=== PATIENT | female | born 1930 | race Caucasian/White ===

== ENCOUNTER 2017-08-05 18:23 | Inpatient (IN) | payer MEDICARE, OTHER ==
--- NOTE | 2017-08-05 19:27 | EDM.PDOC ---
ED HPI GENERAL MEDICAL PROBLEM - General Chief Complaint: Gastrointestinal Problem Stated Complaint: BLEEDING FROM RECTUM Time Seen by Provider: 08/05/17 19:05 Source of Information: Reports: Patient History Limitations: Reports: No Limitations - History of Present Illness INITIAL COMMENTS - FREE TEXT/NARRATIVE: 87-year-old female presents to the ED with reported rectal bleeding 3 since 7: 00 last night. There was some stool mixed with blood but it is bright red with a few clots. It was over hand for one halfthis p.m. She did attend the clinic in [facility] and hemoglobin was low at 7.8. She has seen multiple specialists in the past and getting different opinions about how high her hemoglobin should be kept at. Her fleet administrator is apparently adopted a hemoglobin of around 8-8.5. This seems relatively low as normally patients with coronary artery disease should be 10-11. Patient has both aortic insufficiency and mitral stenosis murmurs. I think there is some concern about easily volume overloading her. She has no dull cramping pain no nausea or vomiting. Appetite has been good. Last EGD and colonoscopy was in March last year in [place]. She had 1 polyp resected from the colon and apparently found diverticula off of her duodenum and some superficial ulcers. Of note the patient is on Coumadin long- term because of her valvular heart disease. Last PT/INR was done on Saturday last week and reported to be INR of 1.5. Dr. Hobson has instructed her she would see her in the clinic tomorrow. She also told her to hold her Coumadin today. Onset: Sudden Onset Date: 08/04/17 (First major bleeding per rectum was identified about some o'clock last night. There is some suggestion she did note some blood in her stool on Saturday, August 03 in the a.m.) Duration: Hour(s): Location: Reports: Other (Bleeding per rectum) Severity: Moderate Improves with: Reports: None Worsens with: Reports: None Context: Reports: Other (Spontaneous bleeding per rectum.). Denies: Activity, Exercise, Lifting, Sick Contact, Trauma Associated Symptoms: Reports: Malaise (Dyspnea on minimal exertion.), Other Treatments KENNEL KEEPER: Reports: Other (see below) (None.) - Related Data Allergies Allergy/AdvReac Type Severity Reaction Status Date / Time prochlorperazine AdvReac Nausea and Verified 08/05/17 18:42 Vomiting tramadol AdvReac Nausea and Verified 08/05/17 18:42 Vomiting Home Meds: Home Meds Atenolol 50 mg PO BEDTIME 07/20/16 [History] Calcium Carbonate [Calcium] 600 mg PO DAILY 07/20/16 [History] Cyanocobalamin (Vitamin B12) [Vitamin B12] 1,000 mcg PO DAILY 07/20/16 [History] Digoxin 0.125 mg PO ASDIRECTED 07/20/16 [History] Sertraline [Zoloft] 75 mg PO BEDTIME 07/20/16 [History] Spironolactone [Aldactone] 50 mg PO BID 07/20/16 [History] Warfarin [Coumadin] 5 mg PO ASDIRECTED 07/20/16 [History] Bumetanide [Bumex] 2 mg PO BID 08/05/17 [History] Cyproheptadine HCl 4 mg PO Q4H PRN 08/05/17 [History] Darbepoetin Jayce in Polysorbat [Aranesp] 40 mcg IJ ASDIRECTED 08/05/17 [History] Denosumab [Prolia] 60 mg SQ ASDIRECTED 08/05/17 [History] Metolazone [Zaroxolyn] 2.5 mg PO MOWEFR 08/05/17 [History] Omeprazole Magnesium [Prilosec Otc] 40 mg PO DAILY 08/05/17 [History] Potassium Chloride 20 meq PO BID 08/05/17 [History] Past Medical History HEENT History: Reports: Cataract Cardiovascular History: Reports: Afib, Cardiomyopathy, Heart Murmur, High Cholesterol, Hypertension, Other (See Below) Other Cardiovascular History: Aortic stenosis, Mitral regurgitation, tricuspid regurgitation, valvular cardiomyopathy Respiratory History: Reports: Other (See Below) Other Respiratory History: Pulmonary HTN Gastrointestinal History: Reports: None Genitourinary History: Reports: None 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: Musculoskeletal History: Reports: Arthritis Neurological History: Reports: None Psychiatric History: Reports: Anxiety Endocrine/Metabolic History: Reports: Osteopenia Hematologic History: Reports: None Immunologic History: Reports: None Oncologic (Cancer) History: Reports: None Dermatologic History: Reports: None - Infectious Disease History Infectious Disease History: Reports: None - Past Surgical History HEENT Surgical History: Reports: Cataract Surgery GI Surgical History: Reports: None Female Surgical History: Reports: Hysterectomy Endocrine Surgical History: Reports: None Neurological Surgical History: Reports: None Musculoskeletal Surgical History: Reports: None Oncologic Surgical History: Reports: None Dermatological Surgical History: Reports: None Social & Family History - Tobacco Use Smoking Status *Q: Never Smoker Used Tobacco, but Quit: Yes Month Tobacco Last Used: 02/10/67 - Caffeine Use Caffeine Use: Reports: Coffee - Recreational Drug Use Recreational Drug Use: No Drug Use in Last 12 Months: No - Living Situation & Occupation Living situation: Reports: Occupation: Retired ED ROS GENERAL - Review of Systems Review Of Systems: See Below Constitutional: Reports: Malaise, Weakness, Fatigue. Denies: Fever, Chills, Decreased Appetite HEENT: Reports: Glasses Respiratory: Reports: Shortness of Breath. Denies: Wheezing, Pleuritic Chest Pain (Chronically), Cough, Sputum, Hemoptysis, Other Cardiovascular: Reports: Blood Pressure Problem, Dyspnea on Exertion. Denies: Claudication, Edema, Lightheadedness, Orthopnea (Mild hypertension), Palpitations, Syncope, Other Endocrine: Reports: Fatigue GI/Abdominal: Reports: Melena. Denies: Abdominal Pain, Anorexia, Black Stool : Reports: Frequency, Incontinence Musculoskeletal: Reports: Neck Pain, Shoulder Pain, Back Pain (Urgent stress components), Joint Pain (At times easily upset time) Skin: Reports: Pallor, Pruritis ( severe generalized pruritus.), Other (Has been tanning in an effort to relieve her) Neurological: Reports: Confusion (Short-term memory loss is evident. Mild confusion at times for dates and times) Psychiatric: Reports: No Symptoms Hematologic/Lymphatic: Reports: No Symptoms Immunologic: Reports: No Symptoms ED EXAM, GI/ABD - Physical Exam Exam: See Below Exam Limited By: No Limitations General Appearance: Alert, WD/WN, No Apparent Distress, Other (She often looks to her family members to answer questions that she's forgetful.) Eyes: Bilateral: Pale Conjunctiva (Moderate) Nose: Normal Inspection, Normal Mucosa, No Blood Throat/Mouth: Normal Inspection, Normal Lips, Normal Oropharynx Head: Atraumatic, Normocephalic Neck: Limited Range of Motion, Tender Lateral (Crepitus on rotation. Tenderness bilaterally). No: Supple, Lymphadenopathy (L), Lymphadenopathy (R) Respiratory/Chest: Chest Non-Tender, Decreased Breath Sounds (Breath sounds diminished in the lower 25% of lung velasquez bilaterally), Rales (Few rales left base.) Cardiovascular: No Edema, No Gallop, No Rub, JVD, Systolic Murmur (Grade 3/6 pansystolic ejection murmur at the left lower sternal border rating up to the right carotid artery compatible with aortic stenosis. Also murmur radiating to the left axilla suggesting mitral insufficiency.) GI/Abdominal Exam: Normal Bowel Sounds, Soft, Non-Tender, No Organomegaly Rectal (Female) Exam: Bloody Stool Back Exam: Other Extremities: Normal Inspection (Mild kyphosis thoracic spine), Normal Range of Motion, Other (Evidence of osteophytic changes knees hips.) Neurological: Alert, Oriented, CN II-XII Intact, Normal Cognition, Memory Loss Recent Events Psychiatric: Normal Affect, Normal Mood Skin Exam: Warm, Dry, Intact, Normal Color, No Rash ED ABDOMINAL/GI PROCEDURES - Additional/Other Procedure(s) Procedure(s) (Free Text): Rigid sigmoidoscopy done with the aid of topical lidocaine gel to the anus. Patient tolerated the procedure well. Rigid sigmoidoscopy done up to 18 cm but encountered only melena stool. In fact the scope progress stool and it was I am unable to visualize much of the colonic wall on the way out of the rectal vault. The veras of the colon appeared be plastered with melena stool. Therefore it appears that the bleeding is coming from up higher in the GI tract. Course - Vital Signs Last Recorded V/S: Last Vital Signs Temp 36.4 C 08/06/17 02:33 Pulse 52 L 08/06/17 02:33 Resp 20 08/06/17 05:00 BP 92/58 L 08/06/17 05:00 Pulse Ox 98 08/06/17 05:00 - Orders/Labs/Meds Orders: Active Orders 24 hr Category Date Time Status Admission Status [Patient Status] [ADT] Routine ADT 08/05/17 21:21 Active Peripheral IV Care [RC] Q2HR Care 08/05/17 20:21 Active Clear Liquid Diet [DIET] Diet 08/06/17 Breakfast Active Nothing per Oral After Midnight Diet [DIET] Diet 08/06/17 Breakfast Active Guaiac [OCCULT BLOOD DIAGNOSTIC] [OP] Stat Lab 08/05/17 20:31 Ordered PACKED CELLS [RED BLOOD CELLS LP] [BBK] Stat Lab 08/05/17 19:40 Results TYPE AND SCREEN [BBK] Stat Lab 08/05/17 19:40 Results Acetaminophen [Tylenol] Med 08/05/17 21:58 Active 650 mg PO Q6H PRN Sodium Chloride 0.9% [Normal Saline] 100 ml Med 08/05/17 21:30 Active IV ASDIRECTED Sodium Chloride 0.9% [Saline Flush] Med 08/05/17 20:20 Active 10 ml FLUSH ASDIRECTED PRN hydrOXYzine HCl [Atarax] Med 08/05/17 21:57 Active 10 mg PO Q6H PRN Peripheral IV Insertion Adult [OM.PC] Stat Oth 08/05/17 20:21 Ordered Medication Orders Acetaminophen (Tylenol) 650 mg PO Q6H PRN PRN Reason: Pain/Fever Atenolol (Tenormin) 50 mg PO BEDTIME [facility] Last Admin: 08/05/17 22:42 Dose: 50 mg Cyproheptadine HCl (Cyproheptadine) 4 mg PO Q4H PRN PRN Reason: Itching Last Admin: 08/05/17 22:28 Dose: 4 mg Digoxin (Lanoxin) 125 mcg PO DAILY@1200 [facility] Enoxaparin Sodium (Lovenox) 30 mg SUBCUT DAILY [facility] Hydroxyzine HCl (Atarax) 10 mg PO Q6H PRN PRN Reason: itching Sodium Chloride (Normal Saline) 100 mls @ 25 mls/hr IV ASDIRECTED [facility]TER Last Admin: 08/05/17 21:35 Dose: 25 mls/hr Lorazepam (Ativan) 0.5 mg IVPUSH Q8H PRN PRN Reason: Anxiety Pantoprazole Sodium (Protonix) 40 mg PO DAILY [facility] Sertraline HCl (Zoloft) 75 mg PO BEDTIME [facility] Last Admin: 08/05/17 22:43 Dose: 75 mg Sodium Chloride (Saline Flush) 10 ml FLUSH ASDIRECTED PRN PRN Reason: Keep Vein Open Last Admin: 08/05/17 20:54 Dose: 10 ml Temazepam (Restoril) 7.5 mg PO BEDTIME PRN PRN Reason: Sleep Labs: Laboratory Tests 08/05/17 08/05/17 08/05/17 Range/Units 19:40 19:40 19:40 WBC 3.14 L (3.98-10.04) K/mm3 RBC 2.83 L (3.98-5.22) M/mm3 Hgb 7.0 L* (11.2-15.7) gm/L Hct 23.1 L (34.1-44.9) % MCV 81.6 (79.4-94.8) fl MCH 24.7 L (25.6-32.2) pg MCHC 30.3 L (32.2-35.5) g/dl RDW Std Deviation 58.6 H (36.4-46.3) fL Plt Count 119 L (182-369) K/mm3 MPV 10.5 (9.4-12.3) fl Neutrophils % (Manual) 76 H (40-60) % Band Neutrophils % 0 (0-10) % Lymphocytes % (Manual) 9 L (20-40) % Atypical Lymphs % 0 % Monocytes % (Manual) 10 (2-10) % Eosinophils % (Manual) 1 (0.7-5.8) % Basophils % (Manual) 1 (0.1-1.2) Metamyelocytes % 3 Platelet Estimate Decreased Plt Morphology Comment See note Hypochromasia 1+ slight Poikilocytosis 1+ slight Anisocytosis 2+ moderate Microcytosis 1+ slight Ovalocytes Few Acanthocytes (Spur) Few Rouleaux 1+ slight Schistocytes Few RBC Morph Comment Not Reportable PT 16.1 H (8.0-13.0) SECONDS INR 1.44 Sodium 140 (136-145) mEq/L Potassium 3.5 (3.5-5.1) mEq/L Chloride 101 (98-107) mEq/L Carbon Dioxide 28 (21-32) mEq/L Anion Gap 14.5 (5-15) BUN 59 H (7-18) mg/dL Creatinine 1.4 H (0.55-1.02) mg/dL Est Cr Clr Drug Dosing 21.10 mL/min Estimated GFR (MDRD) 36 (>60) mL/min BUN/Creatinine Ratio 42.1 H (14-18) Glucose 116 H (83-115) mg/dL Calcium 8.2 L (8.5-10.1) mg/dL Magnesium 1.9 (1.8-2.4) mg/dl Iron (50-170) ug/dL TIBC (100-400) ug/dL % Saturation (20-55) % Transferrin (202-364) mg/dL Total Bilirubin 0.5 (0.2-1.0) mg/dL AST 20 (15-37) U/L ALT 15 (14-59) U/L Alkaline Phosphatase 84 (46-116) U/L C-Reactive Protein 0.6 (<1.0) mg/dL NT-Pro-B Natriuret Pep (0-450) pg/mL Total Protein 6.8 (6.4-8.2) g/dl Albumin 3.2 L (3.4-5.0) g/dl Globulin 3.6 gm/dL Albumin/Globulin Ratio 0.9 L (1-2) Digoxin (0.9-2.0) ng/mL Blood Type Gel Antibody Screen Crossmatch 08/05/17 08/05/17 08/05/17 Range/Units 19:40 19:40 19:40 WBC (3.98-10.04) K/mm3 RBC (3.98-5.22) M/mm3 Hgb (11.2-15.7) gm/L Hct (34.1-44.9) % MCV (79.4-94.8) fl MCH (25.6-32.2) pg MCHC (32.2-35.5) g/dl RDW Std Deviation (36.4-46.3) fL Plt Count (182-369) K/mm3 MPV (9.4-12.3) fl Neutrophils % (Manual) (40-60) % Band Neutrophils % (0-10) % Lymphocytes % (Manual) (20-40) % Atypical Lymphs % % Monocytes % (Manual) (2-10) % Eosinophils % (Manual) (0.7-5.8) % Basophils % (Manual) (0.1-1.2) Metamyelocytes % Platelet Estimate Plt Morphology Comment Hypochromasia Poikilocytosis Anisocytosis Microcytosis Ovalocytes Acanthocytes (Spur) Rouleaux Schistocytes RBC Morph Comment PT (8.0-13.0) SECONDS INR Sodium (136-145) mEq/L Potassium (3.5-5.1) mEq/L Chloride (98-107) mEq/L Carbon Dioxide (21-32) mEq/L Anion Gap (5-15) BUN (7-18) mg/dL Creatinine (0.55-1.02) mg/dL Est Cr Clr Drug Dosing mL/min Estimated GFR (MDRD) (>60) mL/min BUN/Creatinine Ratio (14-18) Glucose (83-115) mg/dL Calcium (8.5-10.1) mg/dL Magnesium (1.8-2.4) mg/dl Iron 25 L (50-170) ug/dL TIBC 420 H (100-400) ug/dL % Saturation 6 L (20-55) % Transferrin 336 (202-364) mg/dL Total Bilirubin (0.2-1.0) mg/dL AST (15-37) U/L ALT (14-59) U/L Alkaline Phosphatase (46-116) U/L C-Reactive Protein (<1.0) mg/dL NT-Pro-B Natriuret Pep 3094 H (0-450) pg/mL Total Protein (6.4-8.2) g/dl Albumin (3.4-5.0) g/dl Globulin gm/dL Albumin/Globulin Ratio (1-2) Digoxin (0.9-2.0) ng/mL Blood Type O POSITIVE Gel Antibody Screen Negative Crossmatch See Detail 08/05/17 Range/Units 19:40 WBC (3.98-10.04) K/mm3 RBC (3.98-5.22) M/mm3 Hgb (11.2-15.7) gm/L Hct (34.1-44.9) % MCV (79.4-94.8) fl MCH (25.6-32.2) pg MCHC (32.2-35.5) g/dl RDW Std Deviation (36.4-46.3) fL Plt Count (182-369) K/mm3 MPV (9.4-12.3) fl Neutrophils % (Manual) (40-60) % Band Neutrophils % (0-10) % Lymphocytes % (Manual) (20-40) % Atypical Lymphs % % Monocytes % (Manual) (2-10) % Eosinophils % (Manual) (0.7-5.8) % Basophils % (Manual) (0.1-1.2) Metamyelocytes % Platelet Estimate Plt Morphology Comment Hypochromasia Poikilocytosis Anisocytosis Microcytosis Ovalocytes Acanthocytes (Spur) Rouleaux Schistocytes RBC Morph Comment PT (8.0-13.0) SECONDS INR Sodium (136-145) mEq/L Potassium (3.5-5.1) mEq/L Chloride (98-107) mEq/L Carbon Dioxide (21-32) mEq/L Anion Gap (5-15) BUN (7-18) mg/dL Creatinine (0.55-1.02) mg/dL Est Cr Clr Drug Dosing mL/min Estimated GFR (MDRD) (>60) mL/min BUN/Creatinine Ratio (14-18) Glucose (83-115) mg/dL Calcium (8.5-10.1) mg/dL Magnesium (1.8-2.4) mg/dl Iron (50-170) ug/dL TIBC (100-400) ug/dL % Saturation (20-55) % Transferrin (202-364) mg/dL Total Bilirubin (0.2-1.0) mg/dL AST (15-37) U/L ALT (14-59) U/L Alkaline Phosphatase (46-116) U/L C-Reactive Protein (<1.0) mg/dL NT-Pro-B Natriuret Pep (0-450) pg/mL Total Protein (6.4-8.2) g/dl Albumin (3.4-5.0) g/dl Globulin gm/dL Albumin/Globulin Ratio (1-2) Digoxin 0.4 L (0.9-2.0) ng/mL Blood Type Gel Antibody Screen Crossmatch Meds: Medications Generic Name Dose Route Start Last Admin Trade Name Freq PRN Reason Stop Dose Admin Acetaminophen 650 mg 08/05/17 21:58 Tylenol PO Q6H PRN Pain/Fever Atenolol 50 mg 08/05/17 22:45 08/05/17 22:42 Tenormin PO 50 mg BEDTIME [facility] Administration Cyproheptadine HCl 4 mg 08/05/17 22:18 08/05/17 22:28 Cyproheptadine PO 4 mg Q4H PRN Administration Itching Digoxin 125 mcg 08/06/17 12:00 Lanoxin PO DAILY@1200 [facility] Enoxaparin Sodium 30 mg 08/06/17 09:00 Lovenox SUBCUT DAILY [facility] Hydroxyzine HCl 10 mg 08/05/17 21:57 Atarax PO Q6H PRN itching Sodium Chloride 100 mls @ 25 mls/hr 08/05/17 21:30 08/05/17 21:35 Normal Saline IV 25 mls/hr ASDIRECTED [facility] Administration Lorazepam 0.5 mg 08/05/17 21:59 Ativan IVPUSH Q8H PRN Anxiety Pantoprazole Sodium 40 mg 08/06/17 09:00 Protonix PO DAILY [facility] Sertraline HCl 75 mg 08/05/17 22:45 08/05/17 22:43 Zoloft PO 75 mg BEDTIME [facility] Administration Sodium Chloride 10 ml 08/05/17 20:20 08/05/17 20:54 Saline Flush FLUSH 10 ml ASDIRECTED PRN Administration Keep Vein Open Temazepam 7.5 mg 08/05/17 22:01 Restoril PO BEDTIME PRN Sleep Discontinued Medications Generic Name Dose Route Start Last Admin Trade Name Freq PRN Reason Stop Dose Admin Atenolol 50 mg 08/06/17 21:00 Tenormin PO BEDTIME [facility] Cyproheptadine HCl 4 mg 08/05/17 22:22 Cyproheptadine PO Q4H PRN Itching Digoxin 125 mcg 08/06/17 09:00 Lanoxin PO DAILY [facility] Digoxin 125 mcg 08/05/17 22:30 Lanoxin PO ASDIRECTED [facility] Furosemide 40 mg 08/05/17 22:00 08/06/17 00:19 Lasix IVPUSH 08/05/17 22:01 40 mg ONETIME ONE Administration Furosemide Confirm 08/06/17 01:13 08/06/17 01:22 Lasix Administered 08/06/17 01:14 Not Given Dose 40 mg .ROUTE .STK-MED ONE Lidocaine HCl 10 ml 08/05/17 19:36 08/05/17 19:56 Xylocaine 2% Jelly MUCMEM 08/05/17 19:37 10 ml ONETIME ONE Administration Sertraline HCl 75 mg 08/06/17 21:00 Zoloft PO BEDTIME [facility] - Radiology Interpretation Free Text/Narrative:: 87-year-old female from [place]. She presents with bright red bleeding per rectum 3 occasions in the last 24 hours. Note she is on Coumadin chronically due to valvular heart disease. She has no pain or cramps. This suggests a low lying lesion in the rectum to be causing such blood loss. Last passage of blood was a handful and a half with some stool. Last hemoglobin checked at the clinic today was 7.8. 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 Dr. Hobson advise her to put her Coumadin on hold today. Plan I will have a quick look in the rectum with the sigmoidoscope see if we can identify source of bleeding. Routine lab work ordered with type and screen. - Re-Assessments/Exams Free Text/Narrative Re-Assessment/Exam: 08/05/17 20:20 a rigid sigmoidoscopy done up to 20 cm. Encountered nothing but melena stool. Stool plug the end of my scope and I could not visualize much of the colon on the way out. On the way and it was blighted stool against the colonic wall throughout. No obvious internal hemorrhoids were appreciated. 08/05/17 20:28 Labs are completed. White count is 3.14 with 76% neutrophils no bands. Hemoglobin is 7.0 at this time with hematocrit of 23.1. Platelet count is 119,000. PT is 16.1 with an INR 1.44. Sodium is 140 with potassium low- normal at 3.5. Chloride 11 bicarbonate 28. And a gap is 14.5. BUN is 59 suggesting an upper GI bleed creatinine is 1.4. GFR is 36. Glucose is 116 calcium 8.2. Magnesium 1.9. Iron is 25 i.e. very low. Total iron binding capacity is 420. Percent saturation is very low at 6. Serum transferrin is 336. Liver function is normal. C-reactive protein is 0.6. BNP is elevated at 3094. 08/05/17 21:[address] Chávez low emission automobile designer hospitalist and she will see the patient in the ED with a view to admission to the hospital. Also spoke with Dr. Parra low emission automobile designer surgeon and he will see the patient in consultation tomorrow if she is stable we'll take her to the OR for upper GI endoscopy. Departure - Departure Time of Disposition: 21:50 Disposition: Admitted As Inpatient 68 Condition: Serious Clinical Impression: Valvular heart disease, Chronic renal insufficiency, stage III (moderate), Chronic atrial fibrillation, Anticoagulated on Coumadin Gastrointestinal hemorrhage Qualifiers: GI bleed type/associated pathology: melena Qualified Code(s): K92.1 - Melena Congestive heart failure Qualifiers: Heart failure type: diastolic Heart failure chronicity: acute on chronic Qualified Code(s): I50.33 - Acute on chronic diastolic (congestive) heart failure Anemia Qualifiers: Anemia type: iron deficiency Iron deficiency anemia type: chronic blood loss Qualified Code(s): D50.0 - Iron deficiency anemia secondary to blood loss ( chronic) - Discharge Information - My Orders Last 24 Hours: My Active Orders 08/05/17 19:40 PACKED CELLS [RED BLOOD CELLS LP] [BBK] Stat TYPE AND SCREEN [BBK] Stat 08/05/17 20:20 Sodium Chloride 0.9% [Saline Flush] 10 ml FLUSH ASDIRECTED PRN 08/05/17 20:21 Peripheral IV Care [RC] Q2HR Peripheral IV Insertion Adult [OM.PC] Stat 08/05/17 20:31 Guaiac [OCCULT BLOOD DIAGNOSTIC] [OP] Stat 08/05/17 21:21 Admission Status [Patient Status] [ADT] Routine 08/05/17 21:30 Sodium Chloride 0.9% [Normal Saline] 100 ml IV ASDIRECTED - Assessment/Plan Last 24 Hours: My Active Orders 08/05/17 19:40 PACKED CELLS [RED BLOOD CELLS LP] [BBK] Stat TYPE AND SCREEN [BBK] Stat 08/05/17 20:20 Sodium Chloride 0.9% [Saline Flush] 10 ml FLUSH ASDIRECTED PRN 08/05/17 20:21 Peripheral IV Care [RC] Q2HR Peripheral IV Insertion Adult [OM.PC] Stat 08/05/17 20:31 Guaiac [OCCULT BLOOD DIAGNOSTIC] [OP] Stat 08/05/17 21:21 Admission Status [Patient Status] [ADT] Routine 08/05/17 21:30 Sodium Chloride 0.9% [Normal Saline] 100 ml IV ASDIRECTED
[2017-08-05] MEDS ORDERED: Lidocaine 2% Jelly 10 ML Urojet MUCMEM ONE (19:36)
[2017-08-05] MEDS ORDERED: Sodium Chloride 0.9% 10 ML Syringe FLUSH PRN (20:20)
[2017-08-05] MEDS ORDERED: Sodium Chloride 0.9% 100 ML IV SCH (21:30)
[2017-08-05] MEDS ORDERED: Acetaminophen Soln 650 MG/20.3 ML UD Cup PO PRN (21:58)
[2017-08-05] MEDS ORDERED: LORazepam 2 MG/ML MDV IVPUSH PRN (21:59)
[2017-08-05] MEDS ORDERED: Furosemide 40 MG/4 ML VIAL IVPUSH ONE (22:00)
[2017-08-05] MEDS ORDERED: Cyproheptadine 4 MG Tab PO PRN (22:22)
[2017-08-05] MEDS: Cyproheptadine 4 MG Tab PO PRN (22:28)
[2017-08-05] MEDS ORDERED: Digoxin 125 MCG Tab PO SCH (22:30)
[2017-08-05] MEDS: Atenolol 50 MG Tab PO SCH (22:42)
[2017-08-05] MEDS: Sertraline 50 MG Tab PO SCH (22:43)
--- NOTE | 2017-08-06 00:25 | PCM.CONS ---
H&P History of Present Illness - General Date of Service: 08/06/17 Source of Information: Patient, Provider History Limitations: Reports: No Limitations - History of Present Illness Initial Comments - Free Text/Narative: 87-year-old elderly woman was in her usual state of health when on Saturday 2 days prior to admission she experienced tarry stools along with red bleeding. She had 3 episodes. She was asymptomatic with her specifically denying lightheadedness syncope palpitations chest pain shortness of breath dyspnea on exertion, abdominal pain, as well as, weakness and fatigue. She takes Coumadin for bivalvular heart disease. She underwent a panendoscopy in March of last year in [place] and she was found to have a colonic polyp which was removed. Her upper endoscopy was remarkable for peptic change of the stomach and she also had a duodenal diverticulum. She is on Coumadin and her INR is around 1.5. Her hemoglobin is 7 which is lower than the 8 recommendation by her corporate real estate specialist. She will receive 1 unit of red cells before the morning. I have been asked to see her in consultation for upper GI bleeding. - Related Data Allergies/Adverse Reactions: Allergies Allergy/AdvReac Type Severity Reaction Status Date / Time prochlorperazine AdvReac Nausea and Verified 08/05/17 18:42 Vomiting tramadol AdvReac Nausea and Verified 08/05/17 18:42 Vomiting Home Medications: Home Meds Atenolol 50 mg PO BEDTIME 07/20/16 [History] Calcium Carbonate [Calcium] 600 mg PO DAILY 07/20/16 [History] Cyanocobalamin (Vitamin B12) [Vitamin B12] 1,000 mcg PO DAILY 07/20/16 [History] Digoxin 0.125 mg PO ASDIRECTED 07/20/16 [History] Sertraline [Zoloft] 75 mg PO BEDTIME 07/20/16 [History] Spironolactone [Aldactone] 50 mg PO BID 07/20/16 [History] Warfarin [Coumadin] 5 mg PO ASDIRECTED 07/20/16 [History] Bumetanide [Bumex] 2 mg PO BID 08/05/17 [History] Cyproheptadine HCl 4 mg PO Q4H PRN 08/05/17 [History] Darbepoetin Jayce in Polysorbat [Aranesp] 40 mcg IJ ASDIRECTED 08/05/17 [History] Denosumab [Prolia] 60 mg SQ ASDIRECTED 08/05/17 [History] Metolazone [Zaroxolyn] 2.5 mg PO MOWEFR 08/05/17 [History] Omeprazole Magnesium [Prilosec Otc] 40 mg PO DAILY 08/05/17 [History] Potassium Chloride 20 meq PO BID 08/05/17 [History] Past Medical History HEENT History: Reports: Cataract Cardiovascular History: Reports: Afib, Cardiomyopathy, Heart Murmur, High Cholesterol, Hypertension, Other (See Below) Other Cardiovascular History: Aortic stenosis, Mitral regurgitation, tricuspid regurgitation, valvular cardiomyopathy Respiratory History: Reports: Other (See Below) Other Respiratory History: Pulmonary HTN Gastrointestinal History: Reports: None Genitourinary History: Reports: None ORTHOPEDICS 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 PHYSICIAN History: Reports: Musculoskeletal History: Reports: Arthritis Neurological History: Reports: None Psychiatric History: Reports: Anxiety Endocrine/Metabolic History: Reports: Osteopenia Hematologic History: Reports: None Immunologic History: Reports: None Oncologic (Cancer) History: Reports: None Dermatologic History: Reports: None - Infectious Disease History Infectious Disease History: Reports: None - Past Surgical History HEENT Surgical History: Reports: Cataract Surgery GI Surgical History: Reports: None Female Surgical History: Reports: Hysterectomy Endocrine Surgical History: Reports: None Neurological Surgical History: Reports: None Musculoskeletal Surgical History: Reports: None Oncologic Surgical History: Reports: None Dermatological Surgical History: Reports: None Social & Family History - Family History Family Medical History: Noncontributory - Tobacco Use Smoking Status *Q: Never Smoker Used Tobacco, but Quit: Yes Month Tobacco Last Used: 02/10/67 - Caffeine Use Caffeine Use: Reports: Coffee - Recreational Drug Use Recreational Drug Use: No Drug Use in Last 12 Months: No - Living Situation & Occupation Living situation: Reports: Occupation: Retired H&P Review of Systems - Review of Systems: Review Of Systems: ROS reveals no pertinent complaints other than HPI. Exam - Exam Exam: See Below - Vital Signs Vital Signs: Last Vital Signs Temp 36.4 C 08/05/17 21:45 Pulse 52 L 08/05/17 22:42 Resp 19 08/05/17 21:54 BP 108/59 L 08/05/17 22:42 Pulse Ox 100 08/05/17 18:42 Weight: 61.054 kg - Exam Quality Assessment: Supplemental Oxygen General: Alert, Oriented, Cooperative HEENT: EOMI, Other (Harder. Without her hearing aid) Neck: Supple, Trachea Midline Lungs: Clear to Auscultation, Normal Respiratory Effort Cardiovascular: Regular Rate, Regular Rhythm GI/Abdominal Exam: Soft, Non-Tender, No Distention, No Mass Rectal (Female) Exam: Deferred Extremities: Normal Inspection Skin: Warm, Dry, Intact Neuro Extensive - Mental Status: Alert, Oriented x3, Normal Mood/Affect Psychiatric: Alert, Normal Affect, Normal Mood - Patient Data Result Diagrams: 08/05/17 19:40 08/05/17 19:40 Consult PN Assessment/Plan Procedures: Procedures BLOOD TRANSFUSION SERVICE (05/11/17) BLOOD TYPING SEROLOGIC ABO (05/11/17) BLOOD TYPING SEROLOGIC RH(D) (05/11/17) BONE MARROW INTERPRETATION (07/23/16) COMPATIBILITY TEST ANTIGLOB (05/11/17) COMPLETE CBC W/AUTO DIFF WBC (05/14/17) DECALCIFY TISSUE (07/23/16) DX BONE MARROW BIOPSIES (07/23/16) DXA BONE DENSITY AXIAL (08/01/16) EXTREMITY STUDY (01/17/16) MEASURE BLOOD OXYGEN LEVEL (12/20/16) PROTHROMBIN TIME (07/05/17) RBC ANTIBODY SCREEN (05/11/17) ROUTINE VENIPUNCTURE (05/11/17) SPECIAL STAINS GROUP 2 (07/23/16) THER/PROPH/DIAG INJ IV PUSH (05/11/17) TISSUE EXAM BY PATHOLOGIST (07/23/16) X-RAY EXAM L-S SPINE 2/3 VWS (07/06/14) (1) Gastrointestinal hemorrhage SNOMED Code(s): 49888748 Code(s): K92.2 - GASTROINTESTINAL HEMORRHAGE, UNSPECIFIED Current Visit: Yes Qualifiers: GI bleed type/associated pathology: melena Qualified Code(s): K92.1 - Melena Assessment:: She has a known history of gastritis or gastric erosions. She's also on Coumadin. With her melena and BUN in the 50s this suggest an upper GI source. Her colonoscopy was remarkable for small diminutive polyp. I recommend an upper endoscopy. Problem List Initiated/Reviewed/Updated: Yes My Orders Last 24 Hours: My Active Orders 08/06/17 00:18 Verify Patient Consent Obtain [RC] ASDIRECTED Schedule Procedure [COMM] Routine 08/06/17 Breakfast Nothing per Oral Now Diet [DIET] Plan: Esophagogastroduodenoscopy in the morning. The patient was quite familiar with the procedure and was happy to hear that she would not need to have a bowel preparation. I answered all of her questions and she made it clear to me that she did not want general anesthesia. I informed her that the procedure could be done safely under conscious sedation.
[2017-08-06] MEDS ORDERED: Furosemide 40 MG/4 ML VIAL ONE (01:13)
--- NOTE | 2017-08-06 02:33 | PCM.PREANE ---
Preanesthetic Assessment - Anesthesia/Transfusion/Family Hx Anesthesia History: Prior Anesthesia Without Reaction Family History of Anesthesia Reaction: No Transfusion History: Prior Transfusion Without Reaction Type of Transfusion Reactions: Reports: Unknown Intubation History: Unknown - Review of Systems General: Weakness, Malaise Pulmonary: Shortness of Breath Cardiovascular: Dyspnea on Exertion Gastrointestinal: Abdominal Pain, Hematochezia Neurological: No Symptoms Other: Reports: Easy Bleeding - Physical Assessment NPO Status Date: 08/05/17 NPO Status Time: 00:00 Pulse: 52 O2 Sat by Pulse Oximetry: 100 Respiratory Rate: 19 Blood Pressure: 108/59 Temperature: 36.4 C Vital Signs: Last Vital Signs Temp 36.4 C 08/05/17 21:45 Pulse 52 L 08/05/17 22:42 Resp 19 08/05/17 21:54 BP 108/59 L 08/05/17 22:42 Pulse Ox 100 08/05/17 18:42 Height: 1.52 m Weight: 61.054 kg ASA Class: 3E Mental Status: Alert & Oriented x3 Airway Class: Mallampati = 1 Thyro-Mental Finger Breadths: 3 Mouth Opening Finger Breadths: 3 ROM/Head Extension: Limited/Partial Lungs: Decreased Breath Sounds Cardiovascular: Irregular Rhythm, Murmurs - Lab Values: Laboratory Last Values WBC 3.14 K/mm3 (3.98-10.04) L 08/05/17 19:40 RBC 2.83 M/mm3 (3.98-5.22) L 08/05/17 19:40 Hgb 7.0 gm/L (11.2-15.7) L* 08/05/17 19:40 Hct 23.1 % (34.1-44.9) L 08/05/17 19:40 MCV 81.6 fl (79.4-94.8) 08/05/17 19:40 MCH 24.7 pg (25.6-32.2) L 08/05/17 19:40 MCHC 30.3 g/dl (32.2-35.5) L 08/05/17 19:40 RDW Std Deviation 58.6 fL (36.4-46.3) H 08/05/17 19:40 Plt Count 119 K/mm3 (182-369) L 08/05/17 19:40 MPV 10.5 fl (9.4-12.3) 08/05/17 19:40 Neutrophils % (Manual) 76 % (40-60) H 08/05/17 19:40 Band Neutrophils % 0 % (0-10) 08/05/17 19:40 Lymphocytes % (Manual) 9 % (20-40) L 08/05/17 19:40 Atypical Lymphs % 0 % 08/05/17 19:40 Monocytes % (Manual) 10 % (2-10) 08/05/17 19:40 Eosinophils % (Manual) 1 % (0.7-5.8) 08/05/17 19:40 Basophils % (Manual) 1 (0.1-1.2) 08/05/17 19:40 Metamyelocytes % 3 08/05/17 19:40 Platelet Estimate Decreased 08/05/17 19:40 Plt Morphology Comment See note 08/05/17 19:40 Hypochromasia 1+ slight 08/05/17 19:40 Poikilocytosis 1+ slight 08/05/17 19:40 Anisocytosis 2+ moderate 08/05/17 19:40 Microcytosis 1+ slight 08/05/17 19:40 Ovalocytes Few 08/05/17 19:40 Acanthocytes (Spur) Few 08/05/17 19:40 Rouleaux 1+ slight 08/05/17 19:40 Schistocytes Few 08/05/17 19:40 RBC Morph Comment Not Reportable 08/05/17 19:40 PT 16.1 SECONDS (8.0-13.0) H 08/05/17 19:40 INR 1.44 08/05/17 19:40 Sodium 140 mEq/L (136-145) 08/05/17 19:40 Potassium 3.5 mEq/L (3.5-5.1) 08/05/17 19:40 Chloride 101 mEq/L (98-107) 08/05/17 19:40 Carbon Dioxide 28 mEq/L (21-32) 08/05/17 19:40 Anion Gap 14.5 (5-15) 08/05/17 19:40 BUN 59 mg/dL (7-18) H 08/05/17 19:40 Creatinine 1.4 mg/dL (0.55-1.02) H 08/05/17 19:40 Est Cr Clr Drug Dosing 21.10 mL/min 08/05/17 19:40 Estimated GFR (MDRD) 36 mL/min (>60) 08/05/17 19:40 BUN/Creatinine Ratio 42.1 (14-18) H 08/05/17 19:40 Glucose 116 mg/dL (83-115) H 08/05/17 19:40 Calcium 8.2 mg/dL (8.5-10.1) L 08/05/17 19:40 Magnesium 1.9 mg/dl (1.8-2.4) 08/05/17 19:40 Iron 25 ug/dL (50-170) L 08/05/17 19:40 TIBC 420 ug/dL (100-400) H 08/05/17 19:40 % Saturation 6 % (20-55) L 08/05/17 19:40 Transferrin 336 mg/dL (202-364) 08/05/17 19:40 Total Bilirubin 0.5 mg/dL (0.2-1.0) 08/05/17 19:40 AST 20 U/L (15-37) 08/05/17 19:40 ALT 15 U/L (14-59) 08/05/17 19:40 Alkaline Phosphatase 84 U/L (46-116) 08/05/17 19:40 C-Reactive Protein 0.6 mg/dL (<1.0) 08/05/17 19:40 NT-Pro-B Natriuret Pep 3094 pg/mL (0-450) H 08/05/17 19:40 Total Protein 6.8 g/dl (6.4-8.2) 08/05/17 19:40 Albumin 3.2 g/dl (3.4-5.0) L 08/05/17 19:40 Globulin 3.6 gm/dL 08/05/17 19:40 Albumin/Globulin Ratio 0.9 (1-2) L 08/05/17 19:40 Digoxin 0.4 ng/mL (0.9-2.0) L 08/05/17 19:40 Blood Type O POSITIVE 08/05/17 19:40 Gel Antibody Screen Negative 08/05/17 19:40 Crossmatch See Detail 08/05/17 19:40 - Imaging/EKG Impressions: on chart Afib rate 45-70 - Allergies Allergies/Adverse Reactions: Allergies Allergy/AdvReac Type Severity Reaction Status Date / Time prochlorperazine AdvReac Nausea and Verified 08/05/17 18:42 Vomiting tramadol AdvReac Nausea and Verified 08/05/17 18:42 Vomiting - Anesthesia Plan Pre-Op Medication Ordered: Beta Gerardo Beta Gerardo: Atenolol Med Last Dose Date: 08/05/17 Med Last Dose Time: 22:40 - Acknowledgements Anesthesia Type Planned: MAC Pt an Appropriate Candidate for the Planned Anesthesia: Yes Alternatives and Risks of Anesthesia Discussed w Pt/Guardian: Yes Pt/Guardian Understands and Agrees with Anesthesia Plan: Yes PreAnesthesia Questionnaire HEENT History: Reports: Cataract Cardiovascular History: Reports: Afib, Cardiomyopathy, Heart Murmur, High Cholesterol, Hypertension, Other (See Below) Other Cardiovascular History: Aortic stenosis, Mitral regurgitation, tricuspid regurgitation, valvular cardiomyopathy Respiratory History: Reports: Other (See Below) Other Respiratory History: Pulmonary HTN Gastrointestinal History: Reports: None Genitourinary History: Reports: None INSEAMER History: Reports: Musculoskeletal History: Reports: Arthritis Neurological History: Reports: None Psychiatric History: Reports: Anxiety Endocrine/Metabolic History: Reports: Osteopenia Hematologic History: Reports: None Immunologic History: Reports: None Oncologic (Cancer) History: Reports: None Dermatologic History: Reports: None - Infectious Disease History Infectious Disease History: Reports: None - Past Surgical History HEENT Surgical History: Reports: Cataract Surgery GI Surgical History: Reports: None Female Surgical History: Reports: Hysterectomy Endocrine Surgical History: Reports: None Neurological Surgical History: Reports: None Musculoskeletal Surgical History: Reports: None Oncologic Surgical History: Reports: None Dermatological Surgical History: Reports: None - SUBSTANCE USE Smoking Status *Q: Never Smoker Recreational Drug Use History: No - HOME MEDS Home Medications: Home Meds Atenolol 50 mg PO BEDTIME 07/20/16 [History] Calcium Carbonate [Calcium] 600 mg PO DAILY 07/20/16 [History] Cyanocobalamin (Vitamin B12) [Vitamin B12] 1,000 mcg PO DAILY 07/20/16 [History] Digoxin 0.125 mg PO ASDIRECTED 07/20/16 [History] Sertraline [Zoloft] 75 mg PO BEDTIME 07/20/16 [History] Spironolactone [Aldactone] 50 mg PO BID 07/20/16 [History] Warfarin [Coumadin] 5 mg PO ASDIRECTED 07/20/16 [History] Bumetanide [Bumex] 2 mg PO BID 08/05/17 [History] Cyproheptadine HCl 4 mg PO Q4H PRN 08/05/17 [History] Darbepoetin Jayce in Polysorbat [Aranesp] 40 mcg IJ ASDIRECTED 08/05/17 [History] Denosumab [Prolia] 60 mg SQ ASDIRECTED 08/05/17 [History] Metolazone [Zaroxolyn] 2.5 mg PO MOWEFR 08/05/17 [History] Omeprazole Magnesium [Prilosec Otc] 40 mg PO DAILY 08/05/17 [History] Potassium Chloride 20 meq PO BID 08/05/17 [History] - CURRENT (IN HOUSE) MEDS Current Meds: Current Medications Acetaminophen (Tylenol) 650 mg PO Q6H PRN PRN Reason: Pain/Fever Atenolol (Tenormin) 50 mg PO BEDTIME [facility] Last Admin: 08/05/17 22:42 Dose: 50 mg Cyproheptadine HCl (Cyproheptadine) 4 mg PO Q4H PRN PRN Reason: Itching Last Admin: 08/05/17 22:28 Dose: 4 mg Digoxin (Lanoxin) 125 mcg PO DAILY@1200 [facility] Enoxaparin Sodium (Lovenox) 30 mg SUBCUT DAILY [facility] Hydroxyzine HCl (Atarax) 10 mg PO Q6H PRN PRN Reason: itching Sodium Chloride (Normal Saline) 100 mls @ 25 mls/hr IV ASDIRECTED [facility] Last Admin: 08/05/17 21:35 Dose: 25 mls/hr Lorazepam (Ativan) 0.5 mg IVPUSH Q8H PRN PRN Reason: Anxiety Pantoprazole Sodium (Protonix) 40 mg PO DAILY [facility] Sertraline HCl (Zoloft) 75 mg PO BEDTIME [facility] Last Admin: 08/05/17 22:43 Dose: 75 mg Sodium Chloride (Saline Flush) 10 ml FLUSH ASDIRECTED PRN PRN Reason: Keep Vein Open Last Admin: 08/05/17 20:54 Dose: 10 ml Temazepam (Restoril) 7.5 mg PO BEDTIME PRN PRN Reason: Sleep Discontinued Medications Atenolol (Tenormin) 50 mg PO BEDTIME [facility] Cyproheptadine HCl (Cyproheptadine) 4 mg PO Q4H PRN PRN Reason: Itching Digoxin (Lanoxin) 125 mcg PO DAILY [facility] Digoxin (Lanoxin) 125 mcg PO ASDIRECTED [facility] Furosemide (Lasix) 40 mg IVPUSH ONETIME ONE Stop: 08/05/17 22:01 Last Admin: 08/06/17 00:19 Dose: 40 mg Furosemide (Lasix) Confirm Administered Dose 40 mg .ROUTE .STK-MED ONE Stop: 08/06/17 01:14 Last Admin: 08/06/17 01:22 Dose: Not Given Lidocaine HCl (Xylocaine 2% Jelly) 10 ml MUCMEM ONETIME ONE Stop: 08/05/17 19:37 Last Admin: 08/05/17 19:56 Dose: 10 ml Sertraline HCl (Zoloft) 75 mg PO BEDTIME [facility]
[2017-08-06] MEDS ORDERED: Propofol 200 MG/20 ML SDV ONE (06:29)
[2017-08-06] MEDS ORDERED: Lidocaine 1% 4 ML ONE (06:29)
--- NOTE | 2017-08-06 07:24 | PCM48HPAN ---
Post Anesthesia Note - EVALUATION WITHIN 48HRS OF ANESTHETIC Vital Signs in Normal Range: Yes Patient Participated in Evaluation: Yes Respiratory Function Stable: Yes Airway Patent: Yes Cardiovascular Function Stable: Yes Hydration Status Stable: Yes Pain Control Satisfactory: Yes Nausea and Vomiting Control Satisfactory: Yes Mental Status Recovered: Yes
--- NOTE | 2017-08-06 07:24 | PCM.OPNOTE ---
- General Post-Op/Procedure Note Date of Surgery/Procedure: 08/06/17 Operative Procedure(s): Diagnostic Esophagogastroduodenoscopy Findings: 1. Schatzki's ring 2. Sliding hiatal hernia 3. Gastric mucosal atrophy 4. Pyloric channel erosion 5. Duodenal diverticulum Pre Op Diagnosis: Melena Post-Op Diagnosis: 1. Schatzki's ring. 2. Sliding hiatal hernia. 3. Gastric mucosal atrophy. 4. Pyloric channel erosion. 5. Duodenal diverticulum Anesthesia Technique: MAC, Moderate Sedation Primary Surgeon: Aleksandr Parra Pathology: None EBL in mLs: 0 Complications: None Condition: Good Free Text/Narrative:: Intake & Output 08/05/17 08/06/17 08/06/17 22:59 06:59 14:59 Intake Total 353 Output Total 600 Balance -247 After adequate IV sedation and analgesia was obtained with monitoring the patient was placed on her left side. Through a bite block a lubricated upper endoscope was inserted into the esophagus and advanced under direct vision towards the GE junction and stomach. Additional air was given upon entry into the stomach. The antrum was identified. There was a small pyloric channel erosion which was easily seen. I passed the scope through the pylorus into the first and second parts of the duodenum where the duodenal diverticulum was visualized quickly but I couldn't photograph it. It was not bleeding. The second part of the duodenum was otherwise unremarkable. The first part of the duodenum had no inflammatory changes or erosions or ulcerations. As mentioned above there was a very superficial pyloric channel erosion. In the retroflexed view there was a sliding hiatal hernia. The fundic and cardiac regions were unremarkable. There were no vascular lesions seen in this view. The body of the stomach had mucosal atrophy but there was no mireya gastritis or ulcers. The GE junction was endoscopically normal. There was a near circumferential Schatzki's ring which was not bleeding. The body of the esophagus was unremarkable. The vocal cords were briefly visualized on extubation and were grossly normal. Supervisor Baking photographs were taken for the patient and for the medical record. There were no procedural complications.
[2017-08-06] MEDS: Enoxaparin 30 MG/0.3 ML Syringe SUBCUT SCH (08:25)
[2017-08-06] MEDS: Pantoprazole 40 MG Tab.CR PO SCH (08:25)
[2017-08-06] MEDS ORDERED: Digoxin 125 MCG Tab PO SCH (09:00)
[2017-08-06] MEDS: Digoxin 125 MCG Tab PO SCH (11:46)
[2017-08-06] MEDS: Cyproheptadine 4 MG Tab PO PRN ×2 (11:48→17:34)
[2017-08-06] MEDS ORDERED: Furosemide 40 MG/4 ML VIAL IVPUSH ONE (12:00)
[2017-08-06] MEDS ORDERED: Sodium Chloride 0.9% 250 ML IV SCH (12:00)
--- NOTE | 2017-08-06 13:08 | PCM.PN ---
- General Info Date of Service: 08/06/17 Functional Status: Reports: Tolerating Diet, Ambulating, Urinating - Review of Systems General: Reports: Weakness HEENT: Reports: No Symptoms Pulmonary: Reports: Shortness of Breath Cardiovascular: Reports: No Symptoms Gastrointestinal: Reports: No Symptoms Genitourinary: Reports: No Symptoms Musculoskeletal: Reports: No Symptoms Skin: Reports: No Symptoms Neurological: Reports: No Symptoms Psychiatric: Reports: No Symptoms - Patient Data Vitals - Most Recent: Last Vital Signs Temp 37.2 C 08/06/17 11:51 Pulse 61 08/06/17 11:51 Resp 20 08/06/17 11:51 BP 109/56 L 08/06/17 11:51 Pulse Ox 100 08/06/17 11:51 Weight - Most Recent: 61.054 kg I&O - Last 24 Hours: Intake & Output 08/05/17 08/06/17 08/06/17 22:59 06:59 14:59 Intake Total 353 880 Output Total 600 Balance -247 880 Lab Results Last 24 Hours: Laboratory Results - last 24 hr 08/06/17 08/06/17 08/06/17 Range/Units 05:42 05:42 05:42 WBC 3.13 L (3.98-10.04) K/mm3 RBC 3.03 L (3.98-5.22) M/mm3 Hgb 7.4 L (11.2-15.7) gm/L Hct 23.9 L (34.1-44.9) % MCV 78.9 L (79.4-94.8) fl MCH 24.4 L (25.6-32.2) pg MCHC 31.0 L (32.2-35.5) g/dl RDW Std Deviation 59.3 H (36.4-46.3) fL Plt Count 102 L (182-369) K/mm3 MPV 11.6 (9.4-12.3) fl Neut % (Auto) 45.4 (34.0-71.1) % Lymph % (Auto) 29.4 (19.3-51.7) % [place] % (Auto) 21.7 H (4.7-12.5) % Eos % (Auto) 1.9 (0.7-5.8) Baso % (Auto) 1.3 H (0.1-1.2) % Neut # (Auto) 1.42 L (1.56-6.13) K/mm3 Lymph # (Auto) 0.92 L (1.18-3.74) K/mm3 [place] # (Auto) 0.68 H (0.24-0.36) K/mm3 Eos # (Auto) 0.06 (0.04-0.36) K/mm3 Baso # (Auto) 0.04 (0.01-0.08) K/mm3 Manual Slide Review Abnormal smear PT 16.1 H (8.0-13.0) SECONDS INR 1.44 Sodium 138 (136-145) mEq/L Potassium 3.6 (3.5-5.1) mEq/L Chloride 102 (98-107) mEq/L Carbon Dioxide 26 (21-32) mEq/L Anion Gap 13.6 (5-15) BUN 58 H (7-18) mg/dL Creatinine 1.3 H (0.55-1.02) mg/dL Est Cr Clr Drug Dosing 22.73 mL/min Estimated GFR (MDRD) 39 (>60) mL/min BUN/Creatinine Ratio 44.6 H (14-18) Glucose 81 L (83-115) mg/dL Calcium 7.9 L (8.5-10.1) mg/dL Magnesium 1.9 (1.8-2.4) mg/dl Troponin I 0.018 (0.00-0.056) ng/mL C-Reactive Protein 0.7 (<1.0) mg/dL Med Orders - Current: Current Medications Acetaminophen (Tylenol) 650 mg PO Q6H PRN PRN Reason: Pain/Fever Atenolol (Tenormin) 50 mg PO BEDTIME ON LICENSE OF [facility] Last Admin: 08/05/17 22:42 Dose: 50 mg Cyproheptadine HCl (Cyproheptadine) 4 mg PO Q4H PRN PRN Reason: Itching Last Admin: 08/06/17 11:48 Dose: 4 mg Digoxin (Lanoxin) 125 mcg PO DAILY@1200 ON LICENSE OF [facility] Last Admin: 08/06/17 11:46 Dose: Not Given Enoxaparin Sodium (Lovenox) 30 mg SUBCUT DAILY ON LICENSE OF [facility] Last Admin: 08/06/17 08:25 Dose: 30 mg Hydroxyzine HCl (Atarax) 10 mg PO Q6H PRN PRN Reason: itching Sodium Chloride (Normal Saline) 100 mls @ 25 mls/hr IV ASDIRECTED ON LICENSE OF [facility] Last Admin: 08/05/17 21:35 Dose: 25 mls/hr Sodium Chloride (Normal Saline) 250 mls @ 15 mls/hr IV ASDIRECTED [facility]UNTER Stop: 08/06/17 16:00 Lorazepam (Ativan) 0.5 mg IVPUSH Q8H PRN PRN Reason: Anxiety Pantoprazole Sodium (Protonix) 40 mg PO DAILY ON LICENSE OF [facility] Last Admin: 08/06/17 08:25 Dose: 40 mg Sertraline HCl (Zoloft) 75 mg PO BEDTIME [facility] Last Admin: 08/05/17 22:43 Dose: 75 mg Sodium Chloride (Saline Flush) 10 ml FLUSH ASDIRECTED PRN PRN Reason: Keep Vein Open Last Admin: 08/05/17 20:54 Dose: 10 ml Temazepam (Restoril) 7.5 mg PO BEDTIME PRN PRN Reason: Sleep Discontinued Medications Atenolol (Tenormin) 50 mg PO BEDTIME ON LICENSE OF [facility] Cyproheptadine HCl (Cyproheptadine) 4 mg PO Q4H PRN PRN Reason: Itching Digoxin (Lanoxin) 125 mcg PO DAILY ON LICENSE OF [facility] Digoxin (Lanoxin) 125 mcg PO ASDIRECTED ON LICENSE OF [facility] Furosemide (Lasix) 40 mg IVPUSH ONETIME ONE Stop: 08/05/17 22:01 Last Admin: 08/06/17 00:19 Dose: 40 mg Furosemide (Lasix) Confirm Administered Dose 40 mg .ROUTE .STK-MED ONE Stop: 08/06/17 01:14 Last Admin: 08/06/17 01:22 Dose: Not Given Furosemide (Lasix) 40 mg IVPUSH NOW ONE Stop: 08/06/17 12:01 Lidocaine HCl (Xylocaine-Mpf 1%) Confirm Administered Dose 4 mls @ as directed .ROUTE .STK-MED ONE Stop: 08/06/17 06:30 Lidocaine HCl (Xylocaine 2% Jelly) 10 ml MUCMEM ONETIME ONE Stop: 08/05/17 19:37 Last Admin: 08/05/17 19:56 Dose: 10 ml Propofol (Diprivan 20 Ml) Confirm Administered Dose 200 mg .ROUTE .STK-MED ONE Stop: 08/06/17 06:30 Sertraline HCl (Zoloft) 75 mg PO BEDTIME [facility]UNTER - Exam Quality Assessment: Supplemental Oxygen, DVT Prophylaxis General: Alert, Oriented, Cooperative, No Acute Distress HEENT: Pupils Equal, Pupils Reactive, EOMI Neck: Trachea Midline, No JVD Lungs: Normal Respiratory Effort Cardiovascular: Regular Rate, Irregular Rhythm GI/Abdominal Exam: Normal Bowel Sounds, Soft, Non-Tender, No Organomegaly, No Distention (Female) Exam: Deferred Back Exam: Normal Inspection Extremities: Normal Inspection Skin: Warm Neurological: No New Focal Deficit Psy/Mental Status: Alert, Normal Affect, Normal Mood - Problem List & Annotations (1) Anemia SNOMED Code(s): 624781181 Code(s): D64.9 - ANEMIA, UNSPECIFIED Status: Acute Current Visit: Yes Qualifiers: Anemia type: iron deficiency Iron deficiency anemia type: chronic blood loss Qualified Code(s): D50.0 - Iron deficiency anemia secondary to blood loss (chronic) (2) Anticoagulated on Coumadin SNOMED Code(s): 51637155 Code(s): Z51.81 - ENCOUNTER FOR THERAPEUTIC DRUG LEVEL MONITORING; Z79.01 - 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 (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) USE OF ANTICOAGULANTS Status: Acute Current Visit: Yes (3) Chronic atrial fibrillation SNOMED Code(s): 806830743 Code(s): I48.2 - CHRONIC ATRIAL FIBRILLATION Status: Acute Current Visit : Yes (4) Chronic renal insufficiency, stage III (moderate) SNOMED Code(s): 902539009 Code(s): N18.3 - CHRONIC KIDNEY DISEASE, STAGE 3 (MODERATE) Status: Acute Current Visit: Yes (5) Congestive heart failure SNOMED Code(s): 00946726 Code(s): I50.9 - HEART FAILURE, UNSPECIFIED Status: Acute Current Visit: Yes Qualifiers: Heart failure type: diastolic Heart failure chronicity: acute on chronic Qualified Code(s): I50.33 - Acute on chronic diastolic (congestive) heart failure (6) Gastrointestinal hemorrhage SNOMED Code(s): 31374915 Code(s): K92.2 - GASTROINTESTINAL HEMORRHAGE, UNSPECIFIED Status: Acute Current Visit: Yes Qualifiers: GI bleed type/associated pathology: melena Qualified Code(s): K92.1 - Melena (7) Valvular heart disease SNOMED Code(s): 254958 Code(s): I38 - ENDOCARDITIS, VALVE UNSPECIFIED Status: Acute Current Visit: Yes - Problem List Review Problem List Initiated/Reviewed/Updated: Yes - My Orders Last 24 Hours: My Active Orders 08/05/17 21:45 Transfuse PRBC [Transfuse Red Blood Cells] [COMM] Routine 08/05/17 22:01 Antiembolic Devices [RC] QSHIFT Temazepam [Restoril] 7.5 mg PO BEDTIME PRN FRANCISCA Hose [Antiembolic Hose] [OM.PC] Routine 08/05/17 22:02 Notify Provider Consults [RC] ASDIRECTED Consult to Physician [CONS] Routine 08/05/17 22:18 Cyproheptadine 4 mg PO Q4H PRN 08/05/17 22:34 Activity as Tolerated [RC] .Routine Consult to Occupational Therapy [OT Evaluation and Treatment] [CONS] Routine 08/05/17 22:45 Atenolol [Tenormin] 50 mg PO BEDTIME Sertraline [Zoloft] 75 mg PO BEDTIME 08/06/17 07:53 PT Evaluation and Treatment [CONS] Routine 08/06/17 09:00 Pantoprazole [ProTONIX] 40 mg PO DAILY 08/06/17 10:08 Transfuse PRBC [Transfuse Red Blood Cells] [COMM] Routine 08/06/17 12:00 Digoxin [Lanoxin] 125 mcg PO DAILY@1200 Sodium Chloride 0.9% [Normal Saline] 250 ml IV ASDIRECTED 08/06/17 Lunch Full Liquid Diet [DIET] - Plan Plan:: Impression: Fe deficiency anemia, EGD likely 08/06/17; gen surg consult History of diverticulosis/diverticulitis S/P sigmoidoscopy in ED, melena found Chronic A fib, stopped coumadin per PCP Subtherapeutic Dig level CKD, baseline III, borderline IV this admission Valvular heart disease---, (reportedly was told to limit Hgb to 8-8.5) The request was suggested by a test lead not a slot router. CHF--BNP~3094, baseline is unknown CMP; unspecified Chronic HTN HLD Plan: ICU Transfuse, T/C, PRBC 2 units General surgery consult--completed Advance diet as tolerated Daily labs Home meds; coumadin on hold. DVT/GI prophylaxis
--- NOTE | 2017-08-06 13:08 | PCM.HP ---
H&P History of Present Illness - General Date of Service: 08/05/17 Source of Information: Patient, Family, Provider History Limitations: Reports: No Limitations - History of Present Illness Initial Comments - Free Text/Narative: 87 year old female on coumadin for A Fib, presents with melena for 24 hours. She has Iron studies drawn in the ED that document GI loss. She has reportedly been told to avoid a hemeglobin >8.5 by her side stitcher who no longer lives in the state. A rigid sigmoidoscopy was performed in the ED, there was melena seen by the ED provider. She has passed several clots on the day of admission. 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 The INR on the day of admission was 1.44; Hgb 7.0. She will be admitted to the ICU, a gen surg consult will be completed in the am, 08/06/17. Onset of Symptoms: Reports: Sudden Duration of Symptoms: Reports: Hour(s): Location: Reports: Abdomen, Generalized Quality: Reports: Same as Previous Episode Severity: Moderate Improves with: Reports: Medication Worsens with: Reports: None Associated Symptoms: Reports: Malaise, Shortness of Breath, Weakness - Related Data Allergies/Adverse Reactions: Allergies Allergy/AdvReac Type Severity Reaction Status Date / Time prochlorperazine AdvReac Nausea and Verified 08/05/17 18:42 Vomiting tramadol AdvReac Nausea and Verified 08/05/17 18:42 Vomiting Home Medications: Home Meds Atenolol 50 mg PO BEDTIME 07/20/16 [History] Calcium Carbonate [Calcium] 600 mg PO DAILY 07/20/16 [History] Cyanocobalamin (Vitamin B12) [Vitamin B12] 1,000 mcg PO DAILY 07/20/16 [History] Digoxin 0.125 mg PO ASDIRECTED 07/20/16 [History] Sertraline [Zoloft] 75 mg PO BEDTIME 07/20/16 [History] Spironolactone [Aldactone] 50 mg PO BID 07/20/16 [History] Warfarin [Coumadin] 5 mg PO ASDIRECTED 07/20/16 [History] Bumetanide [Bumex] 2 mg PO BID 08/05/17 [History] Cyproheptadine HCl 4 mg PO Q4H PRN 08/05/17 [History] Darbepoetin Jayce in [place]ysorbat [Aranesp] 40 mcg IJ ASDIRECTED 08/05/17 [History] Denosumab [Prolia] 60 mg SQ ASDIRECTED 08/05/17 [History] Metolazone [Zaroxolyn] 2.5 mg PO MOWEFR 08/05/17 [History] Omeprazole Magnesium [Prilosec Otc] 40 mg PO DAILY 08/05/17 [History] Potassium Chloride 20 meq PO BID 08/05/17 [History] Past Medical History HEENT History: Reports: Cataract Cardiovascular History: Reports: Afib, Cardiomyopathy, Heart Murmur, High Cholesterol, Hypertension, Other (See Below) Other Cardiovascular History: Aortic stenosis, Mitral regurgitation, tricuspid regurgitation, valvular cardiomyopathy Respiratory History: Reports: Other (See Below) Other Respiratory History: Pulmonary HTN Gastrointestinal History: Reports: None Genitourinary History: Reports: None 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: Musculoskeletal History: Reports: Arthritis Neurological History: Reports: None Psychiatric History: Reports: Anxiety Endocrine/Metabolic History: Reports: Osteopenia Hematologic History: Reports: None Immunologic History: Reports: None Oncologic (Cancer) History: Reports: None Dermatologic History: Reports: None - Infectious Disease History Infectious Disease History: Reports: None - Past Surgical History HEENT Surgical History: Reports: Cataract Surgery GI Surgical History: Reports: None Female Surgical History: Reports: Hysterectomy Endocrine Surgical History: Reports: None Neurological Surgical History: Reports: None Musculoskeletal Surgical History: Reports: None Oncologic Surgical History: Reports: None Dermatological Surgical History: Reports: None Social & Family History - Family History Family Medical History: Noncontributory - Tobacco Use Smoking Status *Q: Never Smoker Used Tobacco, but Quit: Yes Month Tobacco Last Used: 02/10/67 - Caffeine Use Caffeine Use: Reports: Coffee - Recreational Drug Use Recreational Drug Use: No Drug Use in Last 12 Months: No - Living Situation & Occupation Living situation: Reports: Occupation: Retired H&P Review of Systems - Review of Systems: Review Of Systems: See Below General: Reports: Malaise, Weakness, Fatigue HEENT: Reports: No Symptoms Pulmonary: Reports: Shortness of Breath Cardiovascular: Reports: No Symptoms Gastrointestinal: Reports: No Symptoms Genitourinary: Reports: No Symptoms Musculoskeletal: Reports: No Symptoms Skin: Reports: No Symptoms Psychiatric: Reports: No Symptoms Neurological: Reports: No Symptoms Hematologic/Lymphatic: Reports: No Symptoms Immunologic: Reports: No Symptoms Exam - Exam Exam: See Below - Vital Signs Vital Signs: Last Vital Signs Temp 37.2 C 08/06/17 11:51 Pulse 61 08/06/17 11:51 Resp 20 08/06/17 11:51 BP 109/56 L 08/06/17 11:51 Pulse Ox 100 08/06/17 11:51 Weight: 61.054 kg - Exam Quality Assessment: Supplemental Oxygen, DVT Prophylaxis General: Alert, Oriented, Cooperative HEENT: Conjunctiva Clear, EOMI, Nares Patent, Normal Nasal Septum, Pupils Equal , Pupils Reactive, PERRLA Neck: Supple, Trachea Midline Lungs: Normal Respiratory Effort Cardiovascular: Regular Rate GI/Abdominal Exam: Normal Bowel Sounds, Soft, Non-Tender, No Organomegaly, No Distention (Female) Exam: Deferred Rectal (Female) Exam: Deferred Back Exam: Normal Inspection Extremities: Normal Inspection, Normal Range of Motion, Non-Tender, No Pedal Edema Skin: Warm Neurological: Cranial Nerves Intact Neuro Extensive - Mental Status: Alert, Oriented x3, Normal Mood/Affect, Normal Cognition, Memory Intact Neuro Extensive - Motor, Sensory, Reflexes: CN II-XII Intact Psychiatric: Alert, Normal Affect, Normal Mood - Patient Data Lab Results Last 24 hrs: Laboratory Results - last 24 hr 08/06/17 08/06/17 08/06/17 Range/Units 05:42 05:42 05:42 WBC 3.13 L (3.98-10.04) K/mm3 RBC 3.03 L (3.98-5.22) M/mm3 Hgb 7.4 L (11.2-15.7) gm/L Hct 23.9 L (34.1-44.9) % MCV 78.9 L (79.4-94.8) fl MCH 24.4 L (25.6-32.2) pg MCHC 31.0 L (32.2-35.5) g/dl RDW Std Deviation 59.3 H (36.4-46.3) fL Plt Count 102 L (182-369) K/mm3 MPV 11.6 (9.4-12.3) fl Neut % (Auto) 45.4 (34.0-71.1) % Lymph % (Auto) 29.4 (19.3-51.7) % [place] % (Auto) 21.7 H (4.7-12.5) % Eos % (Auto) 1.9 (0.7-5.8) Baso % (Auto) 1.3 H (0.1-1.2) % Neut # (Auto) 1.42 L (1.56-6.13) K/mm3 Lymph # (Auto) 0.92 L (1.18-3.74) K/mm3 [place] # (Auto) 0.68 H (0.24-0.36) K/mm3 Eos # (Auto) 0.06 (0.04-0.36) K/mm3 Baso # (Auto) 0.04 (0.01-0.08) K/mm3 Manual Slide Review Abnormal smear PT 16.1 H (8.0-13.0) SECONDS INR 1.44 Sodium 138 (136-145) mEq/L Potassium 3.6 (3.5-5.1) mEq/L Chloride 102 (98-107) mEq/L Carbon Dioxide 26 (21-32) mEq/L Anion Gap 13.6 (5-15) BUN 58 H (7-18) mg/dL Creatinine 1.3 H (0.55-1.02) mg/dL Est Cr Clr Drug Dosing 22.73 mL/min Estimated GFR (MDRD) 39 (>60) mL/min BUN/Creatinine Ratio 44.6 H (14-18) Glucose 81 L (83-115) mg/dL Calcium 7.9 L (8.5-10.1) mg/dL Magnesium 1.9 (1.8-2.4) mg/dl Troponin I 0.018 (0.00-0.056) ng/mL C-Reactive Protein 0.7 (<1.0) mg/dL Result Diagrams: 08/06/17 05:42 08/06/17 05:42 *Q Meaningful Use (ADM) - VTE *Q VTE Criteria *Q: - Stroke *Q Stroke Criteria *Q: - AMI *Q AMI Criteria *Q: - Problem List (1) Anemia SNOMED Code(s): 738699751 ICD Code: D64.9 - ANEMIA, UNSPECIFIED Status: Acute Current Visit: Yes Qualifiers: Anemia type: iron deficiency Iron deficiency anemia type: chronic blood loss Qualified Code(s): D50.0 - Iron deficiency anemia secondary to blood loss (chronic) (2) Anticoagulated on Coumadin SNOMED Code(s): 80007203 ICD Code: Z51.81 - ENCOUNTER FOR THERAPEUTIC DRUG LEVEL MONITORING; Z79.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 ANTICOAGULANTS Status: Acute Current Visit: Yes (3) Chronic atrial fibrillation SNOMED Code(s): 259959885 ICD Code: I48.2 - CHRONIC ATRIAL FIBRILLATION Status: Acute Current Visit : Yes (4) Chronic renal insufficiency, stage III (moderate) SNOMED Code(s): 451892816 ICD Code: N18.3 - CHRONIC KIDNEY DISEASE, STAGE 3 (MODERATE) Status: Acute Current Visit: Yes (5) Congestive heart failure SNOMED Code(s): 86551176 ICD Code: I50.9 - HEART FAILURE, UNSPECIFIED Status: Acute Current Visit : Yes Qualifiers: Heart failure type: diastolic Heart failure chronicity: acute on chronic Qualified Code(s): I50.33 - Acute on chronic diastolic (congestive) heart failure (6) Gastrointestinal hemorrhage SNOMED Code(s): 08461359 ICD Code: K92.2 - GASTROINTESTINAL HEMORRHAGE, UNSPECIFIED Status: Acute Current Visit: Yes Qualifiers: GI bleed type/associated pathology: melena Qualified Code(s): K92.1 - Melena (7) Valvular heart disease SNOMED Code(s): 257028 ICD Code: I38 - ENDOCARDITIS, VALVE UNSPECIFIED Status: Acute Current Visit: Yes Problem List Initiated/Reviewed/Updated: Yes Orders Last 24hrs: Active Orders 24 hr Category Date Time Status Activity as Tolerated [RC] .Routine Care 08/05/17 22:34 Active Antiembolic Devices [RC] QSHIFT Care 08/05/17 22:01 Active Notify Provider Consults [RC] ASDIRECTED Care 08/05/17 22:02 Active Notify Provider [RC] ASDIRECTED Care 08/06/17 06:58 Active Oxygen Therapy [RC] ASDIRECTED Care 08/06/17 06:58 Active Verify Patient Consent Obtain [RC] ASDIRECTED Care 08/06/17 00:18 Active Consult to Occupational Therapy [OT Evaluation and Cons 08/05/17 22:34 Active Treatment] [CONS] Routine Consult to Physician [CONS] Routine Cons 08/05/17 22:02 Active PT Evaluation and Treatment [CONS] Routine Cons 08/06/17 07:53 Active Full Liquid Diet [DIET] Diet 08/06/17 Lunch Active Atenolol [Tenormin] Med 08/05/17 22:45 Active 50 mg PO BEDTIME Cyproheptadine Med 08/05/17 22:18 Active 4 mg PO Q4H PRN Digoxin [Lanoxin] Med 08/06/17 12:00 Active 125 mcg PO DAILY@1200 Pantoprazole [ProTONIX] Med 08/06/17 09:00 Active 40 mg PO DAILY Sertraline [Zoloft] Med 08/05/17 22:45 Active 75 mg PO BEDTIME Sodium Chloride 0.9% [Normal Saline] 250 ml Med 08/06/17 12:00 Active IV ASDIRECTED Temazepam [Restoril] Med 08/05/17 22:01 Active 7.5 mg PO BEDTIME PRN Schedule Procedure [COMM] Routine Ot 08/06/17 00:18 Ordered FRANCISCA Hose [Antiembolic Hose] [OM.PC] Routine Ot 08/05/17 22:01 Ordered Transfuse PRBC [Transfuse Red Blood Cells] [COMM] Ot 08/05/17 21:45 Ordered Routine Transfuse PRBC [Transfuse Red Blood Cells] [COMM] Ot 08/06/17 10:08 Ordered Routine Medication Orders Acetaminophen (Tylenol) 650 mg PO Q6H PRN PRN Reason: Pain/Fever Atenolol (Tenormin) 50 mg PO BEDTIME [facility] Last Admin: 08/05/17 22:42 Dose: 50 mg Cyproheptadine HCl (Cyproheptadine) 4 mg PO Q4H PRN PRN Reason: Itching Last Admin: 08/06/17 11:48 Dose: 4 mg Admin: 08/05/17 22:28 Dose: 4 mg Digoxin (Lanoxin) 125 mcg PO DAILY@1200 [facility] Last Admin: 08/06/17 11:46 Dose: Enoxaparin Sodium (Lovenox) 30 mg SUBCUT DAILY [facility] Last Admin: 08/06/17 08:25 Dose: 30 mg Hydroxyzine HCl (Atarax) 10 mg PO Q6H PRN PRN Reason: itching Sodium Chloride (Normal Saline) 100 mls @ 25 mls/hr IV ASDIRECTED [facility] Last Admin: 08/05/17 21:35 Dose: 25 mls/hr Sodium Chloride (Normal Saline) 250 mls @ 15 mls/hr IV ASDIRECTED [facility] Stop: 08/06/17 16:00 Lorazepam (Ativan) 0.5 mg IVPUSH Q8H PRN PRN Reason: Anxiety Pantoprazole Sodium (Protonix) 40 mg PO DAILY [facility] Last Admin: 08/06/17 08:25 Dose: 40 mg Sertraline HCl (Zoloft) 75 mg PO BEDTIME [facility] Last Admin: 08/05/17 22:43 Dose: 75 mg Sodium Chloride (Saline Flush) 10 ml FLUSH ASDIRECTED PRN PRN Reason: Keep Vein Open Last Admin: 08/05/17 20:54 Dose: 10 ml Temazepam (Restoril) 7.5 mg PO BEDTIME PRN PRN Reason: Sleep Assessment/Plan Comment:: Impression: Fe deficiency anemia, EGD likely 08/06/17; gen surg consult History of diverticulosis/diverticulitis S/P sigmoidoscopy in ED, melena found Chronic A fib, stopped coumadin per PCP Subtherapeutic Dig level CKD, baseline III, borderline IV this admission Valvular heart disease---, (reportedly was told to limit Hgb to 8-8.5) The request was suggested by a side stitcher not a flat machine cutter. CHF--BNP~3094, baseline is unknown CMP; unspecified Chronic HTN HLD Plan: ICU Transfuse, T/C, PRBC 2 units General surgery consult Clear liquids, NPO after midnight Daily labs Home meds; coumadin on hold. DVT/GI prophylaxis
[2017-08-06] MEDS: Temazepam 7.5 MG Cap PO PRN (20:32)
[2017-08-06] MEDS: Sertraline 50 MG Tab PO SCH (20:33)
[2017-08-06] MEDS: hydrOXYzine HCl 10 MG Tab PO PRN (20:42)
[2017-08-06] MEDS ORDERED: Sertraline 50 MG Tab PO SCH (21:00)
[2017-08-06] MEDS ORDERED: Atenolol 50 MG Tab PO SCH (21:00)
[2017-08-06] MEDS: Atenolol 50 MG Tab PO SCH (21:02)
[2017-08-07] MEDS: Enoxaparin 30 MG/0.3 ML Syringe SUBCUT SCH (09:21)
[2017-08-07] MEDS: Pantoprazole 40 MG Tab.CR PO SCH (09:21)
--- NOTE | 2017-08-07 09:48 | PCM.PN ---
- General Info Date of Service: 08/07/17 Functional Status: Reports: Pain Controlled, Tolerating Diet, Ambulating, Urinating - Review of Systems General: Reports: Weakness HEENT: Reports: No Symptoms Pulmonary: Reports: No Symptoms Cardiovascular: Reports: No Symptoms Gastrointestinal: Reports: No Symptoms Genitourinary: Reports: No Symptoms Musculoskeletal: Reports: No Symptoms Skin: Reports: No Symptoms Neurological: Reports: No Symptoms Psychiatric: Reports: No Symptoms - Patient Data Vitals - Most Recent: Last Vital Signs Temp 37.9 C 08/07/17 08:00 Pulse 47 L 08/07/17 08:00 Resp 12 08/07/17 08:00 BP 87/55 L 08/07/17 08:00 Pulse Ox 97 08/07/17 08:00 Weight - Most Recent: 61.054 kg I&O - Last 24 Hours: Intake & Output 08/06/17 08/07/17 08/07/17 22:59 06:59 14:59 Intake Total 882 400 Output Total 1600 800 Balance -718 -400 Lab Results Last 24 Hours: Laboratory Results - last 24 hr 08/06/17 Range/Units 19:50 Hgb 8.1 L (11.2-15.7) gm/L Med Orders - Current: Current Medications Acetaminophen (Tylenol) 650 mg PO Q6H PRN PRN Reason: Pain/Fever Atenolol (Tenormin) 50 mg PO BEDTIME COUNT INCLUDES THE [facility] Last Admin: 08/06/17 21:02 Dose: Not Given Cyproheptadine HCl (Cyproheptadine) 4 mg PO Q4H PRN PRN Reason: Itching Last Admin: 08/06/17 17:34 Dose: 4 mg Digoxin (Lanoxin) 125 mcg PO DAILY@1200 COUNT INCLUDES THE [facility] Last Admin: 08/06/17 11:46 Dose: Not Given Enoxaparin Sodium (Lovenox) 30 mg SUBCUT DAILY COUNT INCLUDES THE [facility] Last Admin: 08/07/17 09:21 Dose: 30 mg Hydroxyzine HCl (Atarax) 10 mg PO Q6H PRN PRN Reason: itching Last Admin: 08/06/17 20:42 Dose: 10 mg Sodium Chloride (Normal Saline) 100 mls @ 25 mls/hr IV ASDIRECTED COUNT INCLUDES THE [facility] Last Admin: 08/05/17 21:35 Dose: 25 mls/hr Lorazepam (Ativan) 0.5 mg IVPUSH Q8H PRN PRN Reason: Anxiety Pantoprazole Sodium (Protonix) 40 mg PO DAILY COUNT INCLUDES THE [facility] Last Admin: 08/07/17 09:21 Dose: 40 mg Sertraline HCl (Zoloft) 75 mg PO BEDTIME COUNT INCLUDES THE [facility] Last Admin: 08/06/17 20:33 Dose: 75 mg Sodium Chloride (Saline Flush) 10 ml FLUSH ASDIRECTED PRN PRN Reason: Keep Vein Open Last Admin: 08/05/17 20:54 Dose: 10 ml Temazepam (Restoril) 7.5 mg PO BEDTIME PRN PRN Reason: Sleep Last Admin: 08/06/17 20:32 Dose: 7.5 mg Discontinued Medications Atenolol (Tenormin) 50 mg PO BEDTIME [facility] Cyproheptadine HCl (Cyproheptadine) 4 mg PO Q4H PRN PRN Reason: Itching Digoxin (Lanoxin) 125 mcg PO DAILY [facility] Digoxin (Lanoxin) 125 mcg PO ASDIRECTED COUNT INCLUDES THE [facility] Furosemide (Lasix) 40 mg IVPUSH ONETIME ONE Stop: 08/05/17 22:01 Last Admin: 08/06/17 00:19 Dose: 40 mg Furosemide (Lasix) Confirm Administered Dose 40 mg .ROUTE .STK-MED ONE Stop: 08/06/17 01:14 Last Admin: 08/06/17 01:22 Dose: Not Given Furosemide (Lasix) 40 mg IVPUSH NOW ONE Stop: 08/06/17 12:01 Last Admin: 08/06/17 15:00 Dose: 40 mg Lidocaine HCl (Xylocaine-Mpf 1%) Confirm Administered Dose 4 mls @ as directed .ROUTE .STK-MED ONE Stop: 08/06/17 06:30 Sodium Chloride (Normal Saline) 250 mls @ 15 mls/hr IV ASDIRECTED [facility]TER Stop: 08/06/17 16:00 Lidocaine HCl (Xylocaine 2% Jelly) 10 ml MUCMEM ONETIME ONE Stop: 08/05/17 19:37 Last Admin: 08/05/17 19:56 Dose: 10 ml Propofol (Diprivan 20 Ml) Confirm Administered Dose 200 mg .ROUTE .STK-MED ONE Stop: 08/06/17 06:30 Sertraline HCl (Zoloft) 75 mg PO BEDTIME [facility] - Exam Quality Assessment: Supplemental Oxygen, DVT Prophylaxis General: Alert, Oriented, Cooperative, No Acute Distress HEENT: Pupils Equal, Pupils Reactive, EOMI Neck: Trachea Midline, No JVD Lungs: Normal Respiratory Effort Cardiovascular: Regular Rate, Regular Rhythm GI/Abdominal Exam: Normal Bowel Sounds, Soft, Non-Tender, No Organomegaly, No Distention (Female) Exam: Deferred Back Exam: Normal Inspection Extremities: Normal Inspection, Normal Capillary Refill Skin: Warm Neurological: No New Focal Deficit Psy/Mental Status: Alert, Normal Affect, Normal Mood - Problem List & Annotations (1) Anemia SNOMED Code(s): 251608952 Code(s): D64.9 - ANEMIA, UNSPECIFIED Status: Acute Current Visit: Yes Qualifiers: Anemia type: iron deficiency Iron deficiency anemia type: chronic blood loss Qualified Code(s): D50.0 - Iron deficiency anemia secondary to blood loss (chronic) (2) Anticoagulated on Coumadin SNOMED Code(s): 26105025 Code(s): Z51.81 - ENCOUNTER FOR THERAPEUTIC DRUG LEVEL MONITORING; Z79.01 - 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 PUBLICATIONS WRITER (CURRENT) USE OF ANTICOAGULANTS Status: Acute Current Visit: Yes (3) Chronic atrial fibrillation SNOMED Code(s): 987429164 Code(s): I48.2 - CHRONIC ATRIAL FIBRILLATION Status: Acute Current Visit : Yes (4) Chronic renal insufficiency, stage III (moderate) SNOMED Code(s): 363756020 Code(s): N18.3 - CHRONIC KIDNEY DISEASE, STAGE 3 (MODERATE) Status: Acute Current Visit: Yes (5) Congestive heart failure SNOMED Code(s): 22766942 Code(s): I50.9 - HEART FAILURE, UNSPECIFIED Status: Acute Current Visit: Yes Qualifiers: Heart failure type: diastolic Heart failure chronicity: acute on chronic Qualified Code(s): I50.33 - Acute on chronic diastolic (congestive) heart failure (6) Gastrointestinal hemorrhage SNOMED Code(s): 21863472 Code(s): K92.2 - GASTROINTESTINAL HEMORRHAGE, UNSPECIFIED Status: Acute Current Visit: Yes Qualifiers: GI bleed type/associated pathology: melena Qualified Code(s): K92.1 - Melena (7) Valvular heart disease SNOMED Code(s): 831365 Code(s): I38 - ENDOCARDITIS, VALVE UNSPECIFIED Status: Acute Current Visit: Yes - Problem List Review Problem List Initiated/Reviewed/Updated: Yes - My Orders Last 24 Hours: My Active Orders 08/06/17 09:00 Pantoprazole [ProTONIX] 40 mg PO DAILY 08/06/17 10:08 Transfuse PRBC [Transfuse Red Blood Cells] [COMM] Routine 08/06/17 12:00 Digoxin [Lanoxin] 125 mcg PO DAILY@1200 08/06/17 13:40 Consult to Dietary [Consult to Qa Analyst] [CONS] Routine 08/06/17 Dinner Heart Healthy Diet [DIET] 08/07/17 00:55 Resuscitation Status Routine 08/07/17 11:00 BASIC METABOLIC PANEL,BMP [CHEM] Routine CBC WITH AUTO DIFF [HEME] Routine MAGNESIUM [CHEM] Routine PRO B-TYPE NATRIUR PEPT,BNPPRO [CHEM] Routine - Plan Plan:: Impression: Fe deficiency anemia, EGD completed; History of diverticulosis/diverticulitis S/P sigmoidoscopy in ED, melena found Chronic A fib, stopped coumadin per PCP Subtherapeutic Dig level CKD, baseline III, borderline IV this admission Valvular heart disease--- mod , (reportedly was told to limit Hgb to 8-8.5) The request was suggested by a car customizer not a home stager. Severe MR, preserved LVEF, 55-60% CHF--BNP~3094, baseline is unknown Chronic HTN HLD Plan: Follow labs and hemodynamics Advance diet as tolerated Daily labs Home meds; coumadin on hold. DVT/GI prophylaxis DC in am, 08/08/17.
[2017-08-07] MEDS: Digoxin 125 MCG Tab PO SCH (13:00)
[2017-08-07] MEDS: hydrOXYzine HCl 10 MG Tab PO PRN (20:38)
[2017-08-07] MEDS: Sertraline 50 MG Tab PO SCH (20:38)
[2017-08-07] MEDS: Temazepam 7.5 MG Cap PO PRN (20:38)
[2017-08-07] MEDS: Atenolol 50 MG Tab PO SCH (20:39)
[2017-08-08] MEDS ORDERED: Warfarin 7.5 MG Tab PO SCH (07:00)
--- NOTE | 2017-08-08 07:12 | PCM.DCSUM1 ---
Discharge Summary - Hospital Course Free Text/Narrative:: 87 year old female on coumadin for A Fib, presents with melena for 24 hours. She has Iron studies drawn in the ED that document GI loss. She has reportedly been told to avoid a hemeglobin >8.5 by her mobile plant operators who no longer lives in the state. A rigid sigmoidoscopy was performed in the ED, there was melena seen by the ED provider. She has passed several clots on the day of admission. 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 The INR on the day of admission was 1.44; Hgb 7.0. She will be admitted to the ICU, a gen surg consult will be completed in the am, 08/06/17. - Discharge Data Discharge Date: 08/08/17 (admit date 08/05/17) Discharge Disposition: Home, Self-Care 01 Condition: Good - Discharge Diagnosis/Problem(s) (1) Gastrointestinal hemorrhage SNOMED Code(s): 49709601 ICD Code: K92.2 - GASTROINTESTINAL HEMORRHAGE, UNSPECIFIED Status: Acute Priority: High Current Visit: Yes Qualifiers: GI bleed type/associated pathology: melena Qualified Code(s): K92.1 - Melena (2) Anemia SNOMED Code(s): 858288019 ICD Code: D64.9 - ANEMIA, UNSPECIFIED Status: Acute Priority: High Current Visit: Yes Qualifiers: Anemia type: iron deficiency Iron deficiency anemia type: chronic blood loss Qualified Code(s): D50.0 - Iron deficiency anemia secondary to blood loss (chronic) (3) Valvular heart disease SNOMED Code(s): 619577 ICD Code: I38 - ENDOCARDITIS, VALVE UNSPECIFIED Status: Chronic Priority : Medium Current Visit: Yes (4) Congestive heart failure SNOMED Code(s): 33867262 ICD Code: I50.9 - HEART FAILURE, UNSPECIFIED Status: Acute Priority: Medium Current Visit: Yes Qualifiers: Heart failure type: diastolic Heart failure chronicity: acute on chronic Qualified Code(s): I50.33 - Acute on chronic diastolic (congestive) heart failure (5) Chronic renal insufficiency, stage III (moderate) SNOMED Code(s): 219782769 ICD Code: N18.3 - CHRONIC KIDNEY DISEASE, STAGE 3 (MODERATE) Status: Chronic Priority: Medium Current Visit: Yes (6) Chronic atrial fibrillation SNOMED Code(s): 821878800 ICD Code: I48.2 - CHRONIC ATRIAL FIBRILLATION Status: Chronic Priority: Medium Current Visit: Yes (7) Anticoagulated on Coumadin SNOMED Code(s): 99396526 ICD Code: Z51.81 - ENCOUNTER FOR THERAPEUTIC DRUG LEVEL MONITORING; Z79.01 - HAND WOOD SANDER (CURRENT) USE OF ANTICOAGULANTS Status: Chronic Priority: Medium Current Visit: Yes - Patient Summary/Data Operative Procedure(s) Performed: Diagnostic Esophagogastroduodenoscopy- Per Dr. Parra. Findings: Date of Surgery/Procedure: 08/06/17. Operative Procedure(s): Diagnostic Esophagogastroduodenoscopy. 1. Schatzki's ring. 2. Sliding hiatal hernia. 3. Gastric mucosal atrophy. 4. Pyloric channel erosion. 5. Duodenal diverticulum Complications: None Consults: Consultations 08/05/17 22:02 Consult to Physician [CONS] Routine -- Dr. Parra 08/05/17 22:34 Consult to Occupational Therapy [OT Evaluation and Treatment] [CONS] Routine 08/06/17 07:53 PT Evaluation and Treatment [CONS] Routine 08/06/17 13:40 Consult to Dietary [Consult to Acid Strength Inspector] [CONS] Routine Labs Pending at D/C: None Recommended Follow-up Testing/Procedures: Outpatient physical therapy. Order and face sheet have been faxed to [facility]. Follow up with Angelina Ford PA-C, PCP on Saturday08/12/17; recommend labs, INR, CBC and BMP at that time. -Recommend follow hgb weekly to assure >8 -Follow INR -Consider GI consult if patient and PCP agree Follow up with Dr. Parra, General Surgeon within 2 -3 weeks of discharge Push fluids Iron rich foods Planned Operative Procedure(s) after DC: None Hospital Course: Impression: Fe deficiency anemia, EGD on 08/06/17; gen surg consult- Dr. Parra -Started on Ferrex -Started on Carafate in addition to home PPI -Yesterday hgb down to 7.4, rec'd PRBC's yesterday. Hgb this am at 8.9. OK for DC home today. -Consider GI eval/consult as outpatient after discharge -Follow up with Dr. Parra in 2-3 weeks History of diverticulosis/diverticulitis S/P sigmoidoscopy in ED, melena found Chronic A fib, stopped coumadin per PCP, will restart on discharge--per Dr. Chávez restart coumadin at 1/2 dose (2.5mg daily), no lovenox bridge, recommend recheck hgb weekly to assure does not go below 8. Will have patient f/up with PCP early next week for recheck. -Subtherapeutic Dig level CKD, baseline III, stable at 1.3-1.5 creatinine Valvular heart disease--- by hx, (reportedly was told to limit Hgb to 8-8.5) -The request was suggested by a mobile plant operators not a therapeutic radiologist--per patient/ family report CHF--BNP~3094--stable in 3K range during stay- baseline is unknown Chronic HTN- stable HLD Plan: ICU Transfuse, T/C, PRBC 2 units, s/p 4 units transfusion total during hospital stay. General surgery consult--completed- as above, EGD performed. Advance diet as tolerated--tolerating regular diet Daily labs Home meds; coumadin restart on discharge, follow hgb and INR closely DVT/GI prophylaxis Patient is Full Code status. PCP is Angelina Ford- PAC with [facility]. - Patient Instructions Diet: Heart Healthy Diet (iron rich foods), Drink 8-10+ Glasses/Day Activity: As Tolerated Driving: Do Not Drive Showering/Bathing: May Shower Notify Provider of: Fever, Increased Pain, Nausea and/or Vomiting - Discharge Plan Prescriptions/Med Rec: Iron Polysaccharides Complex [Ferrex 150] 150 mg PO DAILY #30 cap Sucralfate [Carafate] 1 gm PO QIDACANDBED #8 oz Warfarin [Coumadin] 2.5 mg PO DAILY #20 tab Home Medications: Home Meds Calcium Carbonate [Calcium] 600 mg PO DAILY 07/20/16 [History] Cyanocobalamin (Vitamin B12) [Vitamin B12] 1,000 mcg PO DAILY 07/20/16 [History] Sertraline [Zoloft] 75 mg PO BEDTIME 07/20/16 [History] Spironolactone [Aldactone] 50 mg PO BID 07/20/16 [History] Bumetanide [Bumex] 2 mg PO BID 08/05/17 [History] Cyproheptadine HCl 4 mg PO Q4H PRN 08/05/17 [History] Darbepoetin Jayce in Polysorbat [Aranesp] 40 mcg IJ ASDIRECTED 08/05/17 [History] Denosumab [Prolia] 60 mg SQ ASDIRECTED 08/05/17 [History] Metolazone [Zaroxolyn] 2.5 mg PO MOWEFR 08/05/17 [History] Omeprazole Magnesium [Prilosec Otc] 40 mg PO DAILY 08/05/17 [History] Potassium Chloride 20 meq PO BID 08/05/17 [History] Atenolol 25 mg PO BEDTIME #30 08/08/17 [Rx] Digoxin 0.125 mg PO ASDIRECTED #0 08/08/17 [Rx] Iron Polysaccharides Complex [Ferrex 150] 150 mg PO DAILY #30 cap 08/08/17 [Rx] Sucralfate [Carafate] 1 gm PO QIDACANDBED #8 oz 08/08/17 [Rx] Warfarin [Coumadin] 2.5 mg PO DAILY #20 tab 08/09/17 [Rx] Patient Handouts: Vitamin K Foods and Warfarin, What You Need to Know About Warfarin, Gastrointestinal Bleeding, [id number] Forms: ED Department Discharge Referrals: Huong Ford PA-C [Primary Care Provider] - - Discharge Summary/Plan Comment DC Time >30 min.: Yes (45 min) - General Info Date of Service: 08/09/17 Admission Dx/Problem (Free Text: Doing well, plans for DC home today No c/o this morning VSS Functional Status: Reports: Pain Controlled, Tolerating Diet, Ambulating, Urinating - Review of Systems General: Reports: Weakness (improved). Denies: Fever HEENT: Reports: No Symptoms Pulmonary: Reports: No Symptoms. Denies: Shortness of Breath, Cough Cardiovascular: Reports: No Symptoms. Denies: Chest Pain, Palpitations Gastrointestinal: Reports: No Symptoms. Denies: Abdominal Pain, Diarrhea, Nausea, Vomiting Neurological: Reports: No Symptoms - Patient Data Vitals - Most Recent: Last Vital Signs Temp 98.8 F 08/08/17 04:00 Pulse 61 08/08/17 04:00 Resp 14 08/08/17 04:00 BP 104/42 L 08/08/17 04:00 Pulse Ox 98 08/08/17 04:00 Weight - Most Recent: 135 lb 9.6 oz I&O - Last 24 hours: Intake & Output 08/07/17 08/08/17 08/08/17 22:59 06:59 14:59 Intake Total 950 400 Output Total 200 450 Balance 750 -50 Lab Results - Last 24 hrs: Laboratory Results - last 24 hr 08/07/17 08/07/17 08/07/17 Range/Units 12:00 12:00 12:00 WBC 2.70 L (3.98-10.04) K/mm3 RBC 3.38 L (3.98-5.22) M/mm3 Hgb 8.4 L (11.2-15.7) gm/L Hct 27.1 L (34.1-44.9) % MCV 80.2 (79.4-94.8) fl MCH 24.9 L (25.6-32.2) pg MCHC 31.0 L (32.2-35.5) g/dl RDW Std Deviation 59.0 H (36.4-46.3) fL Plt Count 101 L (182-369) K/mm3 MPV 10.6 (9.4-12.3) fl Neut % (Auto) 50.4 (34.0-71.1) % Lymph % (Auto) 28.1 (19.3-51.7) % [place] % (Auto) 16.7 H (4.7-12.5) % Eos % (Auto) 2.6 (0.7-5.8) Baso % (Auto) 1.5 H (0.1-1.2) % Neut # (Auto) 1.36 L (1.56-6.13) K/mm3 Lymph # (Auto) 0.76 L (1.18-3.74) K/mm3 [place] # (Auto) 0.45 H (0.24-0.36) K/mm3 Eos # (Auto) 0.07 (0.04-0.36) K/mm3 Baso # (Auto) 0.04 (0.01-0.08) K/mm3 Manual Slide Review Abnormal smear Sodium 142 (136-145) mEq/L Potassium 3.5 (3.5-5.1) mEq/L Chloride 105 (98-107) mEq/L Carbon Dioxide 27 (21-32) mEq/L Anion Gap 13.5 (5-15) BUN 51 H (7-18) mg/dL Creatinine 1.3 H (0.55-1.02) mg/dL Est Cr Clr Drug Dosing 22.73 mL/min Estimated GFR (MDRD) 39 (>60) mL/min BUN/Creatinine Ratio 39.2 H (14-18) Glucose 108 (83-115) mg/dL Calcium 8.4 L (8.5-10.1) mg/dL Magnesium 2.1 (1.8-2.4) mg/dl NT-Pro-B Natriuret Pep 3486 H (0-450) pg/mL 08/08/17 Range/Units 05:15 WBC 2.93 L (3.98-10.04) K/mm3 RBC 2.93 L (3.98-5.22) M/mm3 Hgb 7.4 L (11.2-15.7) gm/L Hct 23.9 L (34.1-44.9) % MCV 81.6 (79.4-94.8) fl MCH 25.3 L (25.6-32.2) pg MCHC 31.0 L (32.2-35.5) g/dl RDW Std Deviation 59.3 H (36.4-46.3) fL Plt Count 98 L (182-369) K/mm3 MPV 11.8 (9.4-12.3) fl Neut % (Auto) 46.5 (34.0-71.1) % Lymph % (Auto) 25.9 (19.3-51.7) % [place] % (Auto) 22.5 H (4.7-12.5) % Eos % (Auto) 3.8 (0.7-5.8) Baso % (Auto) 1.0 (0.1-1.2) % Neut # (Auto) 1.36 L (1.56-6.13) K/mm3 Lymph # (Auto) 0.76 L (1.18-3.74) K/mm3 [place] # (Auto) 0.66 H (0.24-0.36) K/mm3 Eos # (Auto) 0.11 (0.04-0.36) K/mm3 Baso # (Auto) 0.03 (0.01-0.08) K/mm3 Manual Slide Review Sodium (136-145) mEq/L Potassium (3.5-5.1) mEq/L Chloride (98-107) mEq/L Carbon Dioxide (21-32) mEq/L Anion Gap (5-15) BUN (7-18) mg/dL Creatinine (0.55-1.02) mg/dL Est Cr Clr Drug Dosing mL/min Estimated GFR (MDRD) (>60) mL/min BUN/Creatinine Ratio (14-18) Glucose (83-115) mg/dL Calcium (8.5-10.1) mg/dL Magnesium (1.8-2.4) mg/dl NT-Pro-B Natriuret Pep (0-450) pg/mL Med Orders - Current: Current Medications Acetaminophen (Tylenol) 650 mg PO Q6H PRN PRN Reason: Pain/Fever Atenolol (Tenormin) 50 mg PO BEDTIME [facility] Last Admin: 08/07/17 20:39 Dose: Not Given Bumetanide (Bumex) 2 mg PO BID [facility] Cyanocobalamin (Vitamin B12) 1,000 mcg PO DAILY [facility] Cyproheptadine HCl (Cyproheptadine) 4 mg PO Q4H PRN PRN Reason: Itching Last Admin: 08/06/17 17:34 Dose: 4 mg Digoxin (Lanoxin) 125 mcg PO DAILY@1200 [facility] Last Admin: 08/07/17 13:00 Dose: Not Given Enoxaparin Sodium (Lovenox) 30 mg SUBCUT DAILY [facility] Last Admin: 08/07/17 09:21 Dose: 30 mg Hydroxyzine HCl (Atarax) 10 mg PO Q6H PRN PRN Reason: itching Last Admin: 08/07/17 20:38 Dose: 10 mg Sodium Chloride (Normal Saline) 100 mls @ 25 mls/hr IV ASDIRECTED [facility] Last Admin: 08/05/17 21:35 Dose: 25 mls/hr Lorazepam (Ativan) 0.5 mg IVPUSH Q8H PRN PRN Reason: Anxiety Metolazone (Zaroxolyn) 2.5 mg PO MoWeFr@0800 [facility] Pantoprazole Sodium (Protonix) 40 mg PO DAILY [facility] Last Admin: 08/07/17 09:21 Dose: 40 mg Potassium Chloride (Klor-Con M20) 20 meq PO BID [facility] Sertraline HCl (Zoloft) 75 mg PO BEDTIME [facility] Last Admin: 08/07/17 20:38 Dose: 75 mg Sodium Chloride (Saline Flush) 10 ml FLUSH ASDIRECTED PRN PRN Reason: Keep Vein Open Last Admin: 08/05/17 20:54 Dose: 10 ml Spironolactone (Aldactone) 50 mg PO BID [facility] Temazepam (Restoril) 7.5 mg PO BEDTIME PRN PRN Reason: Sleep Last Admin: 08/07/17 20:38 Dose: 7.5 mg Warfarin Sodium (Coumadin) 5 mg PO ASDIRECTED [facility] Discontinued Medications Atenolol (Tenormin) 50 mg PO BEDTIME [facility] Cyproheptadine HCl (Cyproheptadine) 4 mg PO Q4H PRN PRN Reason: Itching Digoxin (Lanoxin) 125 mcg PO DAILY [facility] Digoxin (Lanoxin) 125 mcg PO ASDIRECTED [facility] Furosemide (Lasix) 40 mg IVPUSH ONETIME ONE Stop: 08/05/17 22:01 Last Admin: 08/06/17 00:19 Dose: 40 mg Furosemide (Lasix) Confirm Administered Dose 40 mg .ROUTE .STK-MED ONE Stop: 08/06/17 01:14 Last Admin: 08/06/17 01:22 Dose: Not Given Furosemide (Lasix) 40 mg IVPUSH NOW ONE Stop: 08/06/17 12:01 Last Admin: 08/06/17 15:00 Dose: 40 mg Lidocaine HCl (Xylocaine-Mpf 1%) Confirm Administered Dose 4 mls @ as directed .ROUTE .STK-MED ONE Stop: 08/06/17 06:30 Sodium Chloride (Normal Saline) 250 mls @ 15 mls/hr IV ASDIRECTED [facility]TER Stop: 08/06/17 16:00 Lidocaine HCl (Xylocaine 2% Jelly) 10 ml MUCMEM ONETIME ONE Stop: 08/05/17 19:37 Last Admin: 08/05/17 19:56 Dose: 10 ml Propofol (Diprivan 20 Ml) Confirm Administered Dose 200 mg .ROUTE .STK-MED ONE Stop: 08/06/17 06:30 Sertraline HCl (Zoloft) 75 mg PO BEDTIME [facility]UNTER - Exam Quality Assessment: Reports: DVT Prophylaxis General: Reports: Alert, Oriented, Cooperative, No Acute Distress HEENT: Reports: Pupils Equal, EOMI, Mucous Membr. Moist/[place]: Reports: Supple Lungs: Reports: Normal Respiratory Effort, Decreased Breath Sounds (bases) Cardiovascular: Reports: Irregular Rhythm GI/Abdominal Exam: Normal Bowel Sounds, Soft, Non-Tender. No: Guarding, Rigid, Rebound, Tender (Female) Exam: Deferred Rectal (Female) Exam: Deferred Extremities: Normal Inspection, No Pedal Edema, Normal Capillary Refill Neurological: Reports: No New Focal Deficit Psy/Mental Status: Reports: Alert, Normal Affect, Normal Mood *Q Meaningful Use (DIS) - VTE *Q VTE Criteria *Q: - Stroke *Q Stroke Criteria *Q: - AMI *Q AMI Criteria *Q:
[2017-08-08] MEDS ORDERED: Potassium Chloride 20 MEQ Tab.ER PO ONE (07:50)
--- NOTE | 2017-08-08 08:03 | PCM.PN ---
- General Info Date of Service: 08/08/17 Admission Dx/Problem (Free Text): Doing ok today. No c/o pain. Slept well. Was hopeful for DC home today however hgb returned 7.4. Reviewed case with Dr. Chávez, will transfuse 2 units PRBC today, 20mg lasix in between, repeat H&H later this afternoon. Add Carafate, ferrex, stop lovenox- add SCD's. Follow hgb and DC pending maintainence of Hgb above 8. Functional Status: Reports: Pain Controlled, Tolerating Diet, Ambulating, Urinating - Review of Systems General: Reports: Weakness. Denies: Fever HEENT: Reports: No Symptoms Pulmonary: Reports: No Symptoms. Denies: Shortness of Breath, Cough Cardiovascular: Reports: No Symptoms. Denies: Chest Pain Gastrointestinal: Reports: No Symptoms. Denies: Abdominal Pain, Diarrhea, Nausea, Vomiting Musculoskeletal: Reports: No Symptoms Neurological: Reports: No Symptoms - Patient Data Vitals - Most Recent: Last Vital Signs Temp 98.8 F 08/08/17 04:00 Pulse 61 08/08/17 04:00 Resp 14 08/08/17 04:00 BP 104/42 L 08/08/17 04:00 Pulse Ox 98 08/08/17 04:00 Weight - Most Recent: 135 lb 9.6 oz I&O - Last 24 Hours: Intake & Output 08/07/17 08/08/17 08/08/17 22:59 06:59 14:59 Intake Total 950 400 Output Total 200 450 Balance 750 -50 Lab Results Last 24 Hours: Laboratory Results - last 24 hr 08/07/17 08/07/17 08/07/17 Range/Units 12:00 12:00 12:00 WBC 2.70 L (3.98-10.04) K/mm3 RBC 3.38 L (3.98-5.22) M/mm3 Hgb 8.4 L (11.2-15.7) gm/L Hct 27.1 L (34.1-44.9) % MCV 80.2 (79.4-94.8) fl MCH 24.9 L (25.6-32.2) pg MCHC 31.0 L (32.2-35.5) g/dl RDW Std Deviation 59.0 H (36.4-46.3) fL Plt Count 101 L (182-369) K/mm3 MPV 10.6 (9.4-12.3) fl Neut % (Auto) 50.4 (34.0-71.1) % Lymph % (Auto) 28.1 (19.3-51.7) % [place] % (Auto) 16.7 H (4.7-12.5) % Eos % (Auto) 2.6 (0.7-5.8) Baso % (Auto) 1.5 H (0.1-1.2) % Neut # (Auto) 1.36 L (1.56-6.13) K/mm3 Lymph # (Auto) 0.76 L (1.18-3.74) K/mm3 [place] # (Auto) 0.45 H (0.24-0.36) K/mm3 Eos # (Auto) 0.07 (0.04-0.36) K/mm3 Baso # (Auto) 0.04 (0.01-0.08) K/mm3 Manual Slide Review Abnormal smear PT (8.0-13.0) SECONDS INR Sodium 142 (136-145) mEq/L Potassium 3.5 (3.5-5.1) mEq/L Chloride 105 (98-107) mEq/L Carbon Dioxide 27 (21-32) mEq/L Anion Gap 13.5 (5-15) BUN 51 H (7-18) mg/dL Creatinine 1.3 H (0.55-1.02) mg/dL Est Cr Clr Drug Dosing 22.73 mL/min Estimated GFR (MDRD) 39 (>60) mL/min BUN/Creatinine Ratio 39.2 H (14-18) Glucose 108 (83-115) mg/dL Calcium 8.4 L (8.5-10.1) mg/dL Magnesium 2.1 (1.8-2.4) mg/dl NT-Pro-B Natriuret Pep 3486 H (0-450) pg/mL 08/08/17 08/08/17 08/08/17 Range/Units 05:15 05:15 05:15 WBC 2.93 L (3.98-10.04) K/mm3 RBC 2.93 L (3.98-5.22) M/mm3 Hgb 7.4 L (11.2-15.7) gm/L Hct 23.9 L (34.1-44.9) % MCV 81.6 (79.4-94.8) fl MCH 25.3 L (25.6-32.2) pg MCHC 31.0 L (32.2-35.5) g/dl RDW Std Deviation 59.3 H (36.4-46.3) fL Plt Count 98 L (182-369) K/mm3 MPV 11.8 (9.4-12.3) fl Neut % (Auto) 46.5 (34.0-71.1) % Lymph % (Auto) 25.9 (19.3-51.7) % [place] % (Auto) 22.5 H (4.7-12.5) % Eos % (Auto) 3.8 (0.7-5.8) Baso % (Auto) 1.0 (0.1-1.2) % Neut # (Auto) 1.36 L (1.56-6.13) K/mm3 Lymph # (Auto) 0.76 L (1.18-3.74) K/mm3 [place] # (Auto) 0.66 H (0.24-0.36) K/mm3 Eos # (Auto) 0.11 (0.04-0.36) K/mm3 Baso # (Auto) 0.03 (0.01-0.08) K/mm3 Manual Slide Review Abnormal smear PT 12.7 (8.0-13.0) SECONDS INR 1.15 Sodium 142 (136-145) mEq/L Potassium 3.3 L (3.5-5.1) mEq/L Chloride 106 (98-107) mEq/L Carbon Dioxide 27 (21-32) mEq/L Anion Gap 12.3 (5-15) BUN 47 H (7-18) mg/dL Creatinine 1.2 H (0.55-1.02) mg/dL Est Cr Clr Drug Dosing 24.62 mL/min Estimated GFR (MDRD) 43 (>60) mL/min BUN/Creatinine Ratio 39.2 H (14-18) Glucose 88 (83-115) mg/dL Calcium 8.3 L (8.5-10.1) mg/dL Magnesium 2.0 (1.8-2.4) mg/dl NT-Pro-B Natriuret Pep (0-450) pg/mL Med Orders - Current: Current Medications Acetaminophen (Tylenol) 650 mg PO Q6H PRN PRN Reason: Pain/Fever Atenolol (Tenormin) 50 mg PO BEDTIME [facility] Last Admin: 08/07/17 20:39 Dose: Not Given Cyanocobalamin (Vitamin B12) 1,000 mcg PO DAILY [facility] Cyproheptadine HCl (Cyproheptadine) 4 mg PO Q4H PRN PRN Reason: Itching Last Admin: 08/06/17 17:34 Dose: 4 mg Digoxin (Lanoxin) 125 mcg PO DAILY@1200 [facility] Last Admin: 08/07/17 13:00 Dose: Not Given Furosemide (Lasix) 20 mg IVPUSH NOW ONE Stop: 08/08/17 12:01 Hydroxyzine HCl (Atarax) 10 mg PO Q6H PRN PRN Reason: itching Last Admin: 08/07/17 20:38 Dose: 10 mg Lorazepam (Ativan) 0.5 mg IVPUSH Q8H PRN PRN Reason: Anxiety Metolazone (Zaroxolyn) 2.5 mg PO MoWeFr@0800 [facility] Pantoprazole Sodium (Protonix) 40 mg PO DAILY [facility] Last Admin: 08/07/17 09:21 Dose: 40 mg Polysaccharide Iron Complex (Ferrex 150) 150 mg PO DAILY [facility] Potassium Chloride (Klor-Con M20) 20 meq PO BID [facility] Sertraline HCl (Zoloft) 75 mg PO BEDTIME [facility] Last Admin: 08/07/17 20:38 Dose: 75 mg Sodium Chloride (Saline Flush) 10 ml FLUSH ASDIRECTED PRN PRN Reason: Keep Vein Open Last Admin: 08/05/17 20:54 Dose: 10 ml Spironolactone (Aldactone) 50 mg PO BID [facility] Sucralfate (Carafate) 1 gm PO QIDACANDBED [facility] Temazepam (Restoril) 7.5 mg PO BEDTIME PRN PRN Reason: Sleep Last Admin: 08/07/17 20:38 Dose: 7.5 mg Discontinued Medications Atenolol (Tenormin) 50 mg PO BEDTIME [facility] Bumetanide (Bumex) 2 mg PO BID [facility] Cyproheptadine HCl (Cyproheptadine) 4 mg PO Q4H PRN PRN Reason: Itching Digoxin (Lanoxin) 125 mcg PO DAILY [facility] Digoxin (Lanoxin) 125 mcg PO ASDIRECTED [facility] Enoxaparin Sodium (Lovenox) 30 mg SUBCUT DAILY [facility] Last Admin: 08/07/17 09:21 Dose: 30 mg Furosemide (Lasix) 40 mg IVPUSH ONETIME ONE Stop: 08/05/17 22:01 Last Admin: 08/06/17 00:19 Dose: 40 mg Furosemide (Lasix) Confirm Administered Dose 40 mg .ROUTE .STK-MED ONE Stop: 08/06/17 01:14 Last Admin: 08/06/17 01:22 Dose: Not Given Furosemide (Lasix) 40 mg IVPUSH NOW ONE Stop: 08/06/17 12:01 Last Admin: 08/06/17 15:00 Dose: 40 mg Sodium Chloride (Normal Saline) 100 mls @ 25 mls/hr IV ASDIRECTED [facility] Last Admin: 08/05/17 21:35 Dose: 25 mls/hr Lidocaine HCl (Xylocaine-Mpf 1%) Confirm Administered Dose 4 mls @ as directed .ROUTE .STK-MED ONE Stop: 08/06/17 06:30 Sodium Chloride (Normal Saline) 250 mls @ 15 mls/hr IV ASDIRECTED [facility] Stop: 08/06/17 16:00 Lidocaine HCl (Xylocaine 2% Jelly) 10 ml MUCMEM ONETIME ONE Stop: 08/05/17 19:37 Last Admin: 08/05/17 19:56 Dose: 10 ml Potassium Chloride (Klor-Con M20) 40 meq PO ONETIME ONE Stop: 08/08/17 07:51 Propofol (Diprivan 20 Ml) Confirm Administered Dose 200 mg .ROUTE .STK-MED ONE Stop: 08/06/17 06:30 Sertraline HCl (Zoloft) 75 mg PO BEDTIME [facility] Warfarin Sodium (Coumadin) 5 mg PO ASDIRECTED [facility] - Exam Quality Assessment: DVT Prophylaxis General: Alert, Oriented, Cooperative, No Acute Distress HEENT: Pupils Equal, EOMI, Mucous Membr. Moist/[place] Neck: Supple Lungs: Clear to Auscultation, Normal Respiratory Effort, Decreased Breath Sounds (bases) Cardiovascular: Irregular Rhythm, Murmurs (grade 2 systolic) GI/Abdominal Exam: Normal Bowel Sounds, Soft. No: Guarding, Rigid, Rebound, Tender (Female) Exam: Deferred Extremities: Normal Inspection, No Pedal Edema, Normal Capillary Refill Peripheral Pulses: 1+: Dorsalis Pedis (L), Dorsalis Pedis (R) Neurological: No New Focal Deficit Psy/Mental Status: Alert, Normal Affect, Normal Mood - Problem List & Annotations (1) Gastrointestinal hemorrhage SNOMED Code(s): 31737675 Code(s): K92.2 - GASTROINTESTINAL HEMORRHAGE, UNSPECIFIED Status: Acute Priority: High Current Visit: Yes Qualifiers: GI bleed type/associated pathology: melena Qualified Code(s): K92.1 - Melena (2) Anemia SNOMED Code(s): 320449491 Code(s): D64.9 - ANEMIA, UNSPECIFIED Status: Acute Priority: High Current Visit: Yes Qualifiers: Anemia type: iron deficiency Iron deficiency anemia type: chronic blood loss Qualified Code(s): D50.0 - Iron deficiency anemia secondary to blood loss (chronic) (3) Valvular heart disease SNOMED Code(s): 543498 Code(s): I38 - ENDOCARDITIS, VALVE UNSPECIFIED Status: Chronic Priority: Medium Current Visit: Yes (4) Congestive heart failure SNOMED Code(s): 65589618 Code(s): I50.9 - HEART FAILURE, UNSPECIFIED Status: Acute Priority: Medium Current Visit: Yes Qualifiers: Heart failure type: diastolic Heart failure chronicity: acute on chronic Qualified Code(s): I50.33 - Acute on chronic diastolic (congestive) heart failure (5) Chronic renal insufficiency, stage III (moderate) SNOMED Code(s): 239984969 Code(s): N18.3 - CHRONIC KIDNEY DISEASE, STAGE 3 (MODERATE) Status: Chronic Priority: Medium Current Visit: Yes (6) Chronic atrial fibrillation SNOMED Code(s): 327369776 Code(s): I48.2 - CHRONIC ATRIAL FIBRILLATION Status: Chronic Priority: Medium Current Visit: Yes (7) Anticoagulated on Coumadin SNOMED Code(s): 95037331 Code(s): Z51.81 - ENCOUNTER FOR THERAPEUTIC DRUG LEVEL MONITORING; Z79.01 - RUBBER FLAP CUTTER (CURRENT) USE OF ANTICOAGULANTS Status: Chronic Priority: Medium Current Visit: Yes (8) Pancytopenia SNOMED Code(s): 501665248 Code(s): D61.818 - OTHER PANCYTOPENIA Status: Acute Priority: High Current Visit: Yes - Problem List Review Problem List Initiated/Reviewed/Updated: Yes - My Orders Last 24 Hours: My Active Orders 08/08/17 07:09 Ready for Discharge [RC] PER UNIT ROUTINE 08/08/17 07:18 TSH [CHEM] Routine 08/08/17 07:26 Communication Order [RC] ROUTINE 08/08/17 07:30 Sucralfate [Carafate] 1 gm PO QIDACANDBED 08/08/17 07:47 RED BLOOD CELLS LP [BBK] Stat TYPE AND SCREEN [BBK] Stat Transfuse PRBC [Transfuse Red Blood Cells] [COMM] Routine 08/08/17 07:53 Antiembolic Devices [RC] PER UNIT ROUTINE SCD [Sequential Compression Device] [OM.PC] Routine 08/08/17 09:00 Cyanocobalamin (Vitamin B12) [Vitamin B12] 1,000 mcg PO DAILY [place] Polysaccharides Complex [Ferrex 150] 150 mg PO DAILY Potassium Chloride [Klor-Con M20] 20 meq PO BID Spironolactone [Aldactone] 50 mg PO BID 08/08/17 12:00 Furosemide [Lasix] 20 mg IVPUSH NOW ONE 08/08/17 16:00 HEMOGLOBIN/HEMATOCRIT,HH [HEME] Timed 08/09/17 08:00 Metolazone [Zaroxolyn] 2.5 mg PO MoWeFr@0800 - Plan Plan:: Impression/Plan: Fe deficiency anemia, EGD completed -S/P multiple transfusions. Hgb down again today to 7.4 from 8.4- s/p 1 unit PRBC yesterday -Reviewed with Dr. Chávez this morning. Will transfuse 2 units PRBC today, follow hgb. -Start ferrex QD -Add carafate AC/HS- cont home PPI -See Dr. Neumann report for EGD findings Date of Surgery/Procedure: 08/06/17 Operative Procedure(s): Diagnostic Esophagogastroduodenoscopy Findings: 1. Schatzki's ring 2. Sliding hiatal hernia 3. Gastric mucosal atrophy 4. Pyloric channel erosion 5. Duodenal diverticulum Pancytopenia -Transfuse as above -Iron def anemia- start Ferrex as above, check B12, folic acid and retic count---normal B12, folic acid and retic today -F/up with Hematology as outpatient recommended History of diverticulosis/diverticulitis--no abd pain currently S/P sigmoidoscopy in ED, melena found Chronic A fib, stopped coumadin per PCP---rate controlled -Hold lovenox today due to persistent anemia, add SCD's for DVT prophylax -Cont to monitor on Telemetry Subtherapeutic Dig level -Hold if HR <60 as has been intermittently bradycardic -Telemetry monitoring CKD, baseline III, stable creatinine -Cont to follow am labs Valvular heart disease--- -Mod , (reportedly was told to limit Hgb to 8-8.5) ---The request was suggested by a facility environmental technician not a heat treat supervisor--per patient/family report -Severe MR, preserved LVEF, 55-60% -Follow up/consult with [employer] as outpatient CHF--BNP~3094---stable at 3K range, baseline is unknown -preserved LVEF, 55-60% -Restart some home diuretics Intermittent bradycardia -Hold dig if HR <60 -Decrease PM atenolol dose to 25mg from 50mg -Telemetry -Check TSH--WNL at 0.985 Chronic HTN--stable HLD Other: Follow labs and hemodynamics Advance diet as tolerated--tolerating regular diet Home meds; coumadin on hold.--now hold lovenox due to anemia/GIB DVT/GI prophylaxis CM/SW for assist with DC planning--- had planned DC today but hgb down 8.4 to 7.4 this am; delay DC 1-2 more days pending stability of hgb after transfusion Patient is Full Code status, PCP is Angelina Ford PA-C with [facility].
[2017-08-08] MEDS ORDERED: Sodium Chloride 0.9% 250 ML IV SCH (09:00)
[2017-08-08] MEDS ORDERED: Bumetanide 1 MG Tab PO SCH (09:00)
[2017-08-08] MEDS: Sucralfate Suspension 1 GM/10 ML Cup PO SCH ×4 (09:01→21:01)
[2017-08-08] MEDS: Iron Polysaccharides Complex 150 MG Cap PO SCH (09:05)
[2017-08-08] MEDS: Pantoprazole 40 MG Tab.CR PO SCH (09:07)
[2017-08-08] MEDS: Potassium Chloride 20 MEQ Tab.ER PO SCH ×2 (09:07→21:02)
[2017-08-08] MEDS: Cyanocobalamin (Vitamin B12) 1,000 MCG Tab PO SCH (09:07)
[2017-08-08] MEDS: Spironolactone 25 MG Tab PO SCH ×2 (09:07→21:01)
[2017-08-08] MEDS: Digoxin 125 MCG Tab PO SCH (11:57)
[2017-08-08] MEDS ORDERED: Furosemide 20 MG/2 ML VIAL IVPUSH ONE ×3 (12:00→18:44)
[2017-08-08] MEDS: Bumetanide 1 MG Tab PO SCH (14:00)
[2017-08-08] MEDS ORDERED: Atenolol 25 MG Tab PO SCH (21:00)
[2017-08-08] MEDS: Sertraline 50 MG Tab PO SCH (21:01)
[2017-08-08] MEDS: hydrOXYzine HCl 10 MG Tab PO PRN (21:02)
[2017-08-09] MEDS: Bumetanide 1 MG Tab PO SCH (06:13)
[2017-08-09] MEDS: Sucralfate Suspension 1 GM/10 ML Cup PO SCH ×2 (06:13→11:29)
[2017-08-09] MEDS ORDERED: Metolazone 2.5 MG Tab PO SCH (08:00)
[2017-08-09] MEDS: Iron Polysaccharides Complex 150 MG Cap PO SCH (08:20)
[2017-08-09] MEDS: Pantoprazole 40 MG Tab.CR PO SCH (08:21)
[2017-08-09] MEDS: Cyanocobalamin (Vitamin B12) 1,000 MCG Tab PO SCH (08:21)
[2017-08-09] MEDS: Potassium Chloride 20 MEQ Tab.ER PO SCH (08:22)
[2017-08-09 08:32] VITALS: BP 109/56
[2017-08-09] MEDS: Spironolactone 25 MG Tab PO SCH (10:37)
[2017-08-09] MEDS: Digoxin 125 MCG Tab PO SCH (13:49)
== END 2017-08-09 14:40 | disposition home or self-care (01) | DRG 377 ==
LOC: JD.ED 18:23 → JD.ICU 21:22 → UNDOADMIN 21:59 → UNDODISIN 08-09 14:40
PROVIDERS: ADMIT Internal Medicine Cardiovascular Disease; ATTEND Internal Medicine Cardiovascular Disease
PROC: 0DJ08ZZ Inspection of Upper Intestinal Tract, Via Natural or Artificial Opening Endoscopic (ICD-10-PCS; principal; 2017-08-06)
PROC: 30233N1 Transfusion of Nonautologous Red Blood Cells into Peripheral Vein, Percutaneous Approach (ICD-10-PCS; 2017-08-08)
DX: K92.1 Melena (principal); I50.33 Acute on chronic diastolic (congestive) heart failure; I38 Endocarditis, valve unspecified; I13.0 Hypertensive heart and chronic kidney disease with heart failure and stage 1 through stage 4 chronic kidney disease, or unspecified chronic kidney disease; E78.00 Pure hypercholesterolemia, unspecified; I11.0 Hypertensive heart disease with heart failure; D61.818 Other pancytopenia; D50.0 Iron deficiency anemia secondary to blood loss (chronic); I48.2 Chronic atrial fibrillation; Z51.81 Encounter for therapeutic drug level monitoring; N18.3 Chronic kidney disease, stage 3 (moderate); Z87.891 Personal history of nicotine dependence; E78.5 Hyperlipidemia, unspecified; M19.90 Unspecified osteoarthritis, unspecified site; M85.80 Other specified disorders of bone density and structure, unspecified site; F41.9 Anxiety disorder, unspecified; K22.2 Esophageal obstruction; K44.9 Diaphragmatic hernia without obstruction or gangrene; K57.10 Diverticulosis of small intestine without perforation or abscess without bleeding; R00.1 Bradycardia, unspecified; K25.9 Gastric ulcer, unspecified as acute or chronic, without hemorrhage or perforation; Z88.8 Allergy status to other drugs, medicaments and biological substances; Z79.01 Long term (current) use of anticoagulants; Z79.899 Other long term (current) drug therapy
CPT/HCPCS: 36415; 45300; 80053; 80162; 82270; 83540; 83735; 83880; 84466; 85025; 85610; 86140; 86850; 86900; 86901; 86922 ×2; 93005; 99285; J7030; J7050; P9016; 36430; 80048; 82607; 82746; 84443; 84484; 85014; 85018; 85045; 97110-GP; 97116-GP; 97162-GP; 97165-GO; 97530-GO; 97530-GP; A9270-GY; J1650; J1940; J2704

== ENCOUNTER 2017-10-28 14:55 | Emergency (ER) | payer MEDICARE ==
[2017-10-28] MEDS ORDERED: Acetaminophen/HYDROcodone 325-5 MG Tab ONE (18:08)
--- NOTE | 2017-10-29 10:57 | EDM.PDOC ---
ED HPI GENERAL MEDICAL PROBLEM - General Stated Complaint: MID BACK PAIN SENT BY DR GOODE Time Seen by Provider: 10/28/17 16:20 Source of Information: Reports: Patient - History of Present Illness INITIAL COMMENTS - FREE TEXT/NARRATIVE: Patient was never seen by me and Dr. Ellis. Patient was seen by JAZMÍN Yo. Unfortunately she got labeled with my name to during the computer crash. I therefore have not examined this patient and have no knowledge of this patient. - Related Data Allergies Allergy/AdvReac Type Severity Reaction Status Date / Time prochlorperazine AdvReac Nausea and Verified 08/05/17 18:42 Vomiting tramadol AdvReac Nausea and Verified 08/05/17 18:42 Vomiting Home Meds: Home Meds Calcium Carbonate [Calcium] 600 mg PO DAILY 07/20/16 [History] Cyanocobalamin (Vitamin B12) [Vitamin B12] 1,000 mcg PO DAILY 07/20/16 [History] Sertraline [Zoloft] 75 mg PO BEDTIME 07/20/16 [History] Spironolactone [Aldactone] 50 mg PO BID 07/20/16 [History] Bumetanide [Bumex] 2 mg PO BID 08/05/17 [History] Cyproheptadine HCl 4 mg PO Q4H PRN 08/05/17 [History] Darbepoetin Jayce in Polysorbat [Aranesp] 40 mcg IJ ASDIRECTED 08/05/17 [History] Denosumab [Prolia] 60 mg SQ ASDIRECTED 08/05/17 [History] Metolazone [Zaroxolyn] 2.5 mg PO MOWEFR 08/05/17 [History] Omeprazole Magnesium [Prilosec Otc] 40 mg PO DAILY 08/05/17 [History] Potassium Chloride 20 meq PO BID 08/05/17 [History] Atenolol 25 mg PO BEDTIME #30 08/08/17 [Rx] Digoxin 0.125 mg PO ASDIRECTED #0 08/08/17 [Rx] Iron Polysaccharides Complex [Ferrex 150] 150 mg PO DAILY #30 cap 08/08/17 [Rx] Sucralfate [Carafate] 1 gm PO QIDACANDBED #8 oz 08/08/17 [Rx] Warfarin [Coumadin] 2.5 mg PO DAILY #20 tab 08/09/17 [Rx] Past Medical History HEENT History: Reports: Cataract Cardiovascular History: Reports: Afib, Cardiomyopathy, Heart Murmur, High Cholesterol, Hypertension, Other (See Below) Other Cardiovascular History: Aortic stenosis, Mitral regurgitation, tricuspid regurgitation, valvular cardiomyopathy Respiratory History: Reports: Other (See Below) Other Respiratory History: Pulmonary HTN Gastrointestinal History: Reports: None Genitourinary History: Reports: None 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 ACCOUNT REPRESENTATIVE History: Reports: Musculoskeletal History: Reports: Arthritis Neurological History: Reports: None Psychiatric History: Reports: Anxiety Endocrine/Metabolic History: Reports: Osteopenia Hematologic History: Reports: None Immunologic History: Reports: None Oncologic (Cancer) History: Reports: None Dermatologic History: Reports: None - Infectious Disease History Infectious Disease History: Reports: None - Past Surgical History HEENT Surgical History: Reports: Cataract Surgery GI Surgical History: Reports: None Female Surgical History: Reports: Hysterectomy Endocrine Surgical History: Reports: None Neurological Surgical History: Reports: None Musculoskeletal Surgical History: Reports: None Oncologic Surgical History: Reports: None Dermatological Surgical History: Reports: None Social & Family History - Family History Family Medical History: Noncontributory - Tobacco Use Smoking Status *Q: Never Smoker Used Tobacco, but Quit: Yes Month/Year Tobacco Last Used: 02/10/67 - Caffeine Use Caffeine Use: Reports: Coffee - Recreational Drug Use Recreational Drug Use: No Drug Use in Last 12 Months: No - Living Situation & Occupation Living situation: Reports: Occupation: Retired Course - Orders/Labs/Meds Orders: Active Orders 24 hr Category Date Time Status Lumbar Spine wo Cont [CT] Routine Exams 10/29/17 08:11 Taken Thoracic Spine wo Cont [CT] Routine Exams 10/29/17 08:11 Taken Labs: Laboratory Tests 10/28/17 10/28/17 10/28/17 Range/Units 14:00 14:00 14:00 WBC 4.06 (3.98-10.04) K/mm3 RBC 2.78 L (3.98-5.22) M/mm3 Hgb 8.3 L (11.2-15.7) gm/L Hct 26.2 L (34.1-44.9) % MCV 94.2 (79.4-94.8) fl MCH 29.9 (25.6-32.2) pg MCHC 31.7 L (32.2-35.5) g/dl RDW Std Deviation 51.4 H (36.4-46.3) fL Plt Count 144 L (182-369) K/mm3 MPV 9.1 L (9.4-12.3) fl Neut % (Auto) 62.6 (34.0-71.1) % Lymph % (Auto) 20.7 (19.3-51.7) % [place] % (Auto) 13.8 H (4.7-12.5) % Eos % (Auto) 2.2 (0.7-5.8) Baso % (Auto) 0.5 (0.1-1.2) % Neut # (Auto) 2.54 (1.56-6.13) K/mm3 Lymph # (Auto) 0.84 L (1.18-3.74) K/mm3 [place] # (Auto) 0.56 H (0.24-0.36) K/mm3 Eos # (Auto) 0.09 (0.04-0.36) K/mm3 Baso # (Auto) 0.02 (0.01-0.08) K/mm3 PT 29.9 H (9.5-12.1) SECONDS INR 2.80 Sodium 132 L (136-145) mEq/L Potassium 4.0 (3.5-5.1) mEq/L Chloride 96 L (98-107) mEq/L Carbon Dioxide 28 (21-32) mEq/L Anion Gap 12.0 (5-15) BUN 64 H (7-18) mg/dL Creatinine 1.2 H (0.55-1.02) mg/dL Est Cr Clr Drug Dosing TNP Estimated GFR (MDRD) 43 (>60) mL/min BUN/Creatinine Ratio 53.3 H (14-18) Glucose 113 (83-115) mg/dL Calcium 9.8 (8.5-10.1) mg/dL Total Bilirubin 0.4 (0.2-1.0) mg/dL AST 20 (15-37) U/L ALT 17 (14-59) U/L Alkaline Phosphatase 93 (46-116) U/L Total Protein 7.7 (6.4-8.2) g/dl Albumin 3.7 (3.4-5.0) g/dl Globulin 4.0 gm/dL Albumin/Globulin Ratio 0.9 L (1-2) TSH 3rd Generation 3.016 (0.358-3.74) uIU/mL Meds: Medications Discontinued Medications Generic Name Dose Route Start Last Admin Trade Name Freq PRN Reason Stop Dose Admin Hydrocodone Bitart/Acetaminophen Confirm 10/28/17 18:08 [place] 325-5 Mg Administered 10/28/17 18:09 Dose 1 tab .ROUTE .STK-MED ONE Departure - Discharge Information Referrals: Huong Goode PA-C [Primary Care Provider] - - My Orders Last 24 Hours: My Active Orders 10/29/17 08:11 Lumbar Spine wo Cont [CT] Routine Thoracic Spine wo Cont [CT] Routine - Assessment/Plan Last 24 Hours: My Active Orders 10/29/17 08:11 Lumbar Spine wo Cont [CT] Routine Thoracic Spine wo Cont [CT] Routine
--- NOTE | 2017-10-30 07:58 | CT ---
CT thoracic spine Technique: Multiple axial sections were obtained through the thoracic spine. Reconstructed coronal and sagittal images were reviewed. Comparison: Prior thoracic spine plain film study of 10/24/17. Findings: Moderate compression deformity is seen at T11. This appears similar to the prior plain film exam. Scattered endplate osteophytes are seen. Other vertebral body heights are maintained within the thoracic spine. Diffuse disc space narrowing is noted within the visualized thoracic spine. Disc spaces are minimally narrowed within the upper thoracic spine. Osteopenia is present. Mild scattered degenerative change is seen within the apophyseal joints. No abnormal subluxation is seen. Nothing acute is appreciated. Impression: 1. Moderate compression deformity of T11. This is stable from prior plain film exam of 10/24/17. Age of this is otherwise indeterminate. 2. Osteopenia and degenerative change as noted above. Diagnostic code #3 I agree with preliminary report from [facility], finalized at 07/31/17, 5:50 PM Central Time
--- NOTE | 2017-10-30 09:33 | CT ---
CT lumbar spine Technique: Multiple axial sections through the lumbar spine were obtained. Reconstructed coronal and sagittal images were reviewed. Comparison: Prior lumbar spine exam of 10/24/17. Findings: Moderately severe compression deformity seen of L2. This compression deformity is stable from prior plain film exam. Very minimal posterior spurring is noted at L1-L2. Other vertebral body heights are maintained. Mild spondylolisthesis is noted at L4-L5. Diffuse degenerative apophyseal change is seen. Bony structures are osteopenic. Nothing acute is appreciated. Incidental degenerative change and vacuum phenomena is seen within the apophyseal joints. Scattered circumferential disc bulging is seen. Minimal areas of scattered neural foraminal stenosis are seen but nerve roots appear to exit without definite compromise. No traumatic disc herniation is seen. Incidental large partially calcified gallstones are seen within the gallbladder. Impression: 1. Moderate compression deformity of L2 which is stable from prior plain film exam but is otherwise indeterminate in age. 2. Osteopenia and degenerative change as noted above. 3. Cholelithiasis. Diagnostic code #3 I agree with preliminary report from [facility], finalized at 10/28/17, 5:50 PM Central Time
== END 2017-10-28 18:20 ==
LOC: JD.ED 14:55
DX: S32.029A Unspecified fracture of second lumbar vertebra, initial encounter for closed fracture (principal); S22.089A Unspecified fracture of T11-T12 vertebra, initial encounter for closed fracture; K59.00 Constipation, unspecified; E78.00 Pure hypercholesterolemia, unspecified; M19.90 Unspecified osteoarthritis, unspecified site; I10 Essential (primary) hypertension; F41.9 Anxiety disorder, unspecified; I48.91 Unspecified atrial fibrillation; Z79.01 Long term (current) use of anticoagulants; Z88.6 Allergy status to analgesic agent; Z87.891 Personal history of nicotine dependence; Z88.8 Allergy status to other drugs, medicaments and biological substances; Z79.899 Other long term (current) drug therapy; X58.XXXA Exposure to other specified factors, initial encounter
CPT/HCPCS: 36415; 72128; 72131; 80053; 84443; 85025; 85610; 99284; A9270

== ENCOUNTER 2017-11-29 14:33 | Emergency (ER) | payer MEDICARE, OTHER ==
--- NOTE | 2017-11-29 16:22 | EDM.PDOC ---
ED HPI GENERAL MEDICAL PROBLEM - General Chief Complaint: Back Pain or Injury Stated Complaint: LOW BACK PAIN Time Seen by Provider: 11/29/17 15:15 Source of Information: Reports: Patient, Old Records History Limitations: Reports: No Limitations - History of Present Illness INITIAL COMMENTS - FREE TEXT/NARRATIVE: 87-year-old female presents for evaluation and treatment of mid to low back pain. Reports a bandlike pain across her low back and into her hips. States the pain is worse with walking. She says she has been having to sleep in a recliner due to the pain. Today she could hardly get up out of her chair due to significant pain. No numbness or tingling into her legs. No urinary or stool incontinence. No fevers or chills. No new trauma to the back. Patient has seen her primary care provider, Dr. Hobson, for this. She states she was recently started on hydrocodone. She is taking 1 tablet every 6 hours but does not like to take this. Does Not want to take any other medication for her back pain at this time. Patient reports that recently, about one month ago, had a significant GI bleed. She was sent to [facility]. She is no longer on Coumadin at this time. Review patient's records show that she was seen in the ER in October [address] of her thoracic and lumbar spine. She had 2 compression deformities, one in the thoracic and one in the lumbar spine. Patient has not had an MRI. She states that she was doing physical therapy but had to quit recently as her back pain is worsening. She is not interested in taking anything stronger than hydrocodone for her pain. 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: Other (see below) Other Treatments BLASTING ENTRYMAN: hydrocodone Lower Back Pain Score (Numeric/FACES): 10 - Related Data Allergies Allergy/AdvReac Type Severity Reaction Status Date / Time digoxin Allergy Cannot Verified 11/29/17 15:02 Remember prochlorperazine AdvReac Nausea and Verified 11/29/17 15:02 Vomiting tramadol AdvReac Nausea and Verified 11/29/17 15:02 Vomiting Home Meds: Home Meds Cyanocobalamin (Vitamin B12) [Vitamin B12] 1,000 mcg PO DAILY 07/20/16 [History] Spironolactone [Aldactone] 50 mg PO BID 07/20/16 [History] Bumetanide [Bumex] 2 mg PO BID 08/05/17 [History] Denosumab [Prolia] 60 mg SQ ASDIRECTED 08/05/17 [History] Omeprazole Magnesium [Prilosec Otc] 40 mg PO DAILY 08/05/17 [History] Potassium Chloride 20 meq PO DAILY 08/05/17 [History] Iron Polysaccharides Complex [Ferrex 150] 150 mg PO DAILY #30 cap 08/08/17 [Rx] Cyproheptadine HCl 4 mg PO QID PRN 11/29/17 [History] Hydrocodone/Acetaminophen [Hydrocodon-Acetaminophen 5-325] 1 each PO QID [History] Lidocaine 5% [Lidoderm 5%] 1 patch TOP DAILY PRN #5 patch 11/29/17 [Rx] Past Medical History HEENT History: Reports: Cataract Cardiovascular History: Reports: Afib, Cardiomyopathy, Heart Murmur, High Cholesterol, Hypertension, Other (See Below) Other Cardiovascular History: Aortic stenosis, Mitral regurgitation, tricuspid regurgitation, valvular cardiomyopathy Respiratory History: Reports: Other (See Below) Other Respiratory History: Pulmonary HTN Gastrointestinal History: Reports: None Genitourinary History: Reports: None 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: Musculoskeletal History: Reports: Arthritis Neurological History: Reports: None Psychiatric History: Reports: Anxiety Endocrine/Metabolic History: Reports: Osteopenia Hematologic History: Reports: None Immunologic History: Reports: None Oncologic (Cancer) History: Reports: None Dermatologic History: Reports: None - Infectious Disease History Infectious Disease History: Reports: None - Past Surgical History HEENT Surgical History: Reports: Cataract Surgery GI Surgical History: Reports: None Female Surgical History: Reports: Hysterectomy Endocrine Surgical History: Reports: None Neurological Surgical History: Reports: None Musculoskeletal Surgical History: Reports: None Oncologic Surgical History: Reports: None Dermatological Surgical History: Reports: None Social & Family History - Family History Family Medical History: Noncontributory - Tobacco Use Smoking Status *Q: Never Smoker Second Hand Smoke Exposure: No - Caffeine Use Caffeine Use: Reports: None - Recreational Drug Use Recreational Drug Use: No - Living Situation & Occupation Living situation: Reports: Occupation: Retired ED ROS GENERAL - Review of Systems Review Of Systems: See Below Constitutional: Denies: Fever, Chills GI/Abdominal: Denies: Stool Incontinence : Denies: Incontinence Musculoskeletal: Reports: Back Pain (mid to low back). Denies: Leg Pain Neurological: Denies: Numbness, Tingling ED EXAM,LOWER BACK PAIN/INJURY - Physical Exam Exam: See Below Exam Limited By: No Limitations General Appearance: Alert, WD/WN, No Apparent Distress Eye Exam: Bilateral Eye: Normal Inspection Ears: Normal External Exam Nose: Normal Inspection Throat/Mouth: Normal Inspection, Normal Voice, No Airway Compromise Neck: Normal Inspection, Non-Tender, Full Range of Motion Respiratory/Chest: No Respiratory Distress, Lungs Clear, Normal Breath Sounds Cardiovascular: Normal Peripheral Pulses, Regular Rate, Rhythm (3+ dorsalis pedis and posterior tibialis pulses bilaterally), No Murmur Back Exam: Normal Inspection, Vertebral Tenderness (T10-L2) Extremities: Normal Inspection, Normal Range of Motion Neurological: Alert, Normal Mood/Affect, Normal Dorsiflexion, Normal Plantar Flexion, Straight Leg Raise (L), Other (negative babinsky). No: Babinski Psychiatric: Normal Affect, Normal Mood Skin Exam: Warm, Dry, Normal Color Course - Vital Signs Last Recorded V/S: Last Vital Signs Temp 97.8 F 11/29/17 16:53 Pulse 68 11/29/17 16:53 Resp 16 11/29/17 16:53 BP 120/80 11/29/17 16:53 Pulse Ox 97 11/29/17 16:53 - Re-Assessments/Exams Free Text/Narrative Re-Assessment/Exam: 11/29/17 16:15 I reviewed the patient's most recent CT and ER reports. She was offered pain medication but does not want anything stronger than hydrocodone therefore declined. I'm hesitant to give her any steroids or NSAIDs due to her recent GI bleed as she is high risk for rebleed. Discussed physical therapy with her; she not very interested in going back to this. I recommended she see Dr. Guevara may consider kyphoplasty. She is also not interested in this. Given that she does not want anything stronger for pain medications and her allergies there is not much more I can do. I will prescribe her some lidocaine patches that she may try. She would also like to take more Tylenol. Given that she is taking one of the hydrocodone every 6 hours she may take some more Tylenol with this as well. Informed her to not exceed 4grams per day. Will discharge home at this time. Discharge instructions as documented. Departure - Departure Time of Disposition: 16:15 Disposition: Home, Self-Care 01 Condition: Fair Clinical Impression: Compression fracture of lumbar spine, non-traumatic Qualifiers: Lumbar vertebra fracture level: L2 - Discharge Information Prescriptions: Lidocaine 5% [Lidoderm 5%] 1 patch TOP DAILY PRN #5 patch PRN Reason: Pain Instructions: Spinal Compression Fracture Referrals: Caroline Hobson MD [Primary Care Provider] - Huong Ford PA-C [Physician Cdl Instructor] - Forms: ED Department Discharge Additional Instructions: Continued take the hydrocodone as prescribed. 1 tab every 6 hours. There is 325 mg of Tylenol in each tab of the hydrocodone. You may take up to 4 g of Tylenol and 1 day. You may take an additional 650 mg of Tylenol every 6 hours as needed. Recommend lidocaine patches as prescribed. If your insurance does not cover the 5%; 4% lidocaine patches are available [id number] and are much more affordable. Follow-up with Dr. Hobson or Angelina Faulkner. Recommend discussing an MRI as a small sure more detailed your back and help determine here care. Recommend seeing Dr. Guevara, orthopedics had [facility]. Call [phone] to schedule with him. Please return to the ER if your symptoms change or worsen.
[2017-11-29 16:56] VITALS: BP 120/80
== END 2017-11-29 16:50 | disposition home or self-care (01) ==
LOC: JD.ED 14:33
DX: M48.56XA Collapsed vertebra, not elsewhere classified, lumbar region, initial encounter for fracture (principal); E78.00 Pure hypercholesterolemia, unspecified; Z88.8 Allergy status to other drugs, medicaments and biological substances; Z88.5 Allergy status to narcotic agent; Z79.899 Other long term (current) drug therapy
CPT/HCPCS: 99283

== ENCOUNTER 2020-06-08 16:22 | Inpatient (IN) | payer MEDICARE, OTHER ==
[2020-06-08] MEDS ORDERED: Sodium Chloride 0.9% 10 ML Syringe FLUSH PRN (16:58)
--- NOTE | 2020-06-08 18:02 | CR ---
Chest: Portable view of the chest was obtained. Comparison: Chest x-ray performed earlier the same day. Increased density within the right lung base is noted. Slight blunting of the lateral costophrenic angle is seen likely due to pleural effusion. Pulmonary vessels appear slightly more congested presumably due to mild increased CHF. Heart is enlarged. Bony structures show degenerative change within the right shoulder. Scoliosis and vertebroplasty are seen within the spine. Impression: 1. Focal increased density with right lung base remains. Small right-sided pleural effusion appears to be present. 2. Cardiomegaly and mild increased CHF from prior chest study. Diagnostic code #3
--- NOTE | 2020-06-08 18:37 | EDM.PDOC ---
ED HPI GENERAL MEDICAL PROBLEM - General Chief Complaint: Cardiovascular Problem Stated Complaint: SOB/CHF Time Seen by Provider: 06/08/20 16:55 Source of Information: Reports: Patient, RN Notes Reviewed - History of Present Illness INITIAL COMMENTS - FREE TEXT/NARRATIVE: 89 yr old female sent here from the [facility] for evaluation of dyspnea, generalized weakness, hypoxia, question pneumonia. She does have hx of chronic CHIF. Hx of chronic a fib. She does use oxygen at home 1 liter NC daytime PRN, 3 L NC nightime PRN. Her sats are reported to have been only 74 % 2 L NC at the [facility] this afternoon. CXR done at the [facility] showed R pleural effusion, infiltrate R base concerning for pneumonia. She does have occasional cough. No recent fever or chills. No chest pain. Hx of covid back in March 2 months ago. States she did not get seriously ill with the covid. - Related Data Allergies Allergy/AdvReac Type Severity Reaction Status Date / Time digoxin Allergy Cannot Verified 06/08/20 16:44 Remember prochlorperazine AdvReac Nausea and Verified 06/08/20 16:44 Vomiting tramadol AdvReac Nausea and Verified 06/08/20 16:44 Vomiting Home Meds: Home Meds Cyanocobalamin (Vitamin B12) [Vitamin B12] 1,000 mcg PO DAILY 07/20/16 [History] Spironolactone [Aldactone] 25 mg PO DAILY 07/20/16 [History] Bumetanide [Bumex] 2 mg PO DAILY 08/05/17 [History] Potassium Chloride 20 meq PO DAILY 08/05/17 [History] Calcium Carbonate/Vitamin D3 [Caltrate 600 + D Soft Chew Tab] 1,200 tab PO DAILY 01/29/19 [History] Calcium Polycarbophil [Fiber-Caps] 3 cap PO BID 01/29/19 [History] Folic Acid 1 mg PO DAILY 01/29/19 [History] Iron Polysaccharides Complex [Ferrex 150] 1 cap PO BID 01/29/19 [History] Multivit with Minerals/Lutein [Vision Plus Lutein Vitamin] 1 each PO DAILY 01/29/19 [History] Sertraline [Zoloft] 50 mg PO DAILY 01/29/19 [History] metOLazone [Metolazone] 5 mg PO WE 01/29/19 [History] Saccharomyces Boulardii [Florastor] 250 mg PO DAILY #5 capsule 02/04/19 [Rx] Psyllium Husk [Psyllium Fiber] 0.52 gm PO ASDIRECTED 06/08/20 [History] Vit C/E/Zn/Coppr/Lutein/Zeaxan [Preservision Areds 2 Softgel] 1 each PO ASDIRECTED 06/08/20 [History] Past Medical History HEENT History: Reports: Cataract, Impaired Vision Cardiovascular History: Reports: Afib, Cardiomyopathy, Heart Murmur, High Cholesterol, Hypertension, Other (See Below) Other Cardiovascular History: Aortic stenosis, Mitral regurgitation, tricuspid regurgitation, valvular cardiomyopathy Respiratory History: Reports: Other (See Below) Other Respiratory History: Pulmonary HTN Gastrointestinal History: Reports: None Other Gastrointestinal History: duedenol ulcer, diverticulii Genitourinary History: Reports: None 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 only has bleeding issues when on thinners Immunologic History: Reports: None Oncologic (Cancer) History: Reports: None Dermatologic History: Reports: None - Infectious Disease History Infectious Disease History: Reports: None - Past Surgical History Head Surgeries/Procedures: Reports: None HEENT Surgical History: Reports: Cataract Surgery, Oral Surgery Respiratory Surgical History: Reports: None GI Surgical History: Reports: None Female Surgical History: Reports: Hysterectomy Endocrine Surgical History: Reports: None Neurological Surgical History: Reports: None Musculoskeletal Surgical History: Reports: None Oncologic Surgical History: Reports: None Dermatological Surgical History: Reports: None Social & Family History - Family History Family Medical History: No Pertinent Family History Cardiac: Reports: OR, Other (See Below) - Tobacco Use Tobacco Use Status *Q: Former Tobacco User Used Tobacco, but Quit: Yes Month/Year Tobacco Last Used: 06/1966 - Caffeine Use Caffeine Use: Reports: Tea Other Caffeine Use: decaf - Recreational Drug Use Recreational Drug Use: No - Living Situation & Occupation Living situation: Reports: Occupation: Retired ED ROS GENERAL - Review of Systems Review Of Systems: See Below Constitutional: Denies: Fever, Chills HEENT: Reports: No Symptoms Respiratory: Reports: Shortness of Breath, Cough (occasional). Denies: Wheezing, Pleuritic Chest Pain Cardiovascular: Reports: Chest Pain GI/Abdominal: Denies: Abdominal Pain, Nausea, Vomiting Musculoskeletal: Reports: Back Pain (chronic). Denies: Shoulder Pain, Arm Pain Skin: Reports: No Symptoms Neurological: Reports: Dizziness, Weakness (generalized). Denies: Trouble Speaking, Difficulty Walking (she does get short of breath with exertional) ED EXAM, GENERAL - Physical Exam Exam: See Below General Appearance: Alert, Mild Distress (mild tachypnea) Ears: Normal External Exam Nose: Normal Inspection Head: Atraumatic. No: Facial Swelling Neck: Supple, Other (No JVD) Respiratory/Chest: No Respiratory Distress, Lungs Clear, Rales (mild bilat lower lungs) Cardiovascular: Systolic Murmur, Irregularly Irregular GI/Abdominal: Soft, Non-Tender Back Exam: No: CVA Tenderness (L), CVA Tenderness (R) Extremities: No: Pedal Edema, Leg Pain, Increased Warmth, Redness Neurological: Alert, Oriented, No Motor/Sensory Deficits Skin Exam: Warm, Dry, Normal Color #1 Interpretation EKG Date: 06/08/20 Rhythm: A-Fib Playas: RAD-Right Playas Deviation P-Wave: Absent QRS: Normal ST-T: Other (t wave inversion V2) Course - Vital Signs Last Recorded V/S: Last Vital Signs Temp 97.8 F 06/08/20 16:46 Pulse 78 06/08/20 16:46 Resp 22 H 06/08/20 16:46 BP 134/79 06/08/20 16:46 Pulse Ox - Orders/Labs/Meds Orders: Active Orders 24 hr Category Date Time Status EKG 12 Lead [EKG Documentation Completion] [RC] STAT Care 06/08/20 16:59 Active Peripheral IV Care [RC] . DIRECTED Care 06/08/20 16:59 Active Sodium Chloride 0.9% [Saline Flush] Med 06/08/20 16:58 Active 10 ml FLUSH ASDIRECTED PRN Peripheral IV Insertion Adult [OM.PC] Stat Oth 06/08/20 16:59 Ordered Medication Orders Sodium Chloride (Saline Flush) 10 ml FLUSH ASDIRECTED PRN PRN Reason: Keep Vein Open Last Admin: 06/08/20 18:01 Dose: 10 ml Documented by: LORETO Labs: Laboratory Tests 06/08/20 06/08/20 06/08/20 Range/Units 17:00 17:00 17:00 WBC 3.80 L (3.98-10.04) K/mm3 RBC 3.50 L (3.98-5.22) M/mm3 Hgb 10.4 L (11.2-15.7) gm/dl Hct 34.3 (34.1-44.9) % MCV 98.0 H D (79.4-94.8) fl MCH 29.7 (25.6-32.2) pg MCHC 30.3 L (32.2-35.5) g/dl RDW Std Deviation 52.1 H (36.4-46.3) fL Plt Count 129 L (182-369) K/mm3 MPV 10.1 (9.4-12.3) fl Neut % (Auto) 64.2 (34.0-71.1) % Lymph % (Auto) 19.2 L (19.3-51.7) % Lawrence % (Auto) 14.5 H (4.7-12.5) % Eos % (Auto) 1.6 (0.7-5.8) Baso % (Auto) 0.5 (0.1-1.2) % Neut # (Auto) 2.44 (1.56-6.13) K/mm3 Lymph # (Auto) 0.73 L (1.18-3.74) K/mm3 Lawrence # (Auto) 0.55 H (0.24-0.36) K/mm3 Eos # (Auto) 0.06 (0.04-0.36) K/mm3 Baso # (Auto) 0.02 (0.01-0.08) K/mm3 PT (9.7-12.0) SECONDS INR APTT 27.3 (21.7-31.4) SECONDS Puncture Site ABG pH (7.35-7.45) ABG pCO2 (35.0-45.0) mmHg ABG pO2 (80.0-100.0) mmHg ABG HCO3 (22.0-26.0) meq/L ABG O2 Saturation (96.0-97.0) % ABG Base Excess (-2-2.0) Hao Test O2 Delivery Device Oxygen Flow Rate FiO2 (21.00-100.00) % Sodium 138 (136-145) mEq/L Potassium 3.5 (3.5-5.1) mEq/L Chloride 97 L (98-107) mEq/L Carbon Dioxide 38 H (21-32) mEq/L Anion Gap 6.5 (5-15) BUN 28 H (7-18) mg/dL Creatinine 0.9 (0.55-1.02) mg/dL Est Cr Clr Drug Dosing 31.04 mL/min Estimated GFR (MDRD) 59 (>60) mL/min BUN/Creatinine Ratio 31.1 H (14-18) Glucose 135 H (83-115) mg/dL Calcium 9.7 (8.5-10.1) mg/dL Ferritin (8-252) ng/ml Total Bilirubin 0.4 (0.2-1.0) mg/dL AST 20 (15-37) U/L ALT 22 (14-59) U/L Alkaline Phosphatase 90 (46-116) U/L Lactate Dehydrogenase 355 H (81-234) U/L Troponin I < 0.017 (0.00-0.056) ng/mL C-Reactive Protein 1.5 H* (<1.0) mg/dL NT-Pro-B Natriuret Pep (0-450) pg/mL Total Protein 7.7 (6.4-8.2) g/dl Albumin 3.7 (3.4-5.0) g/dl Globulin 4.0 gm/dL Albumin/Globulin Ratio 0.9 L (1-2) 06/08/20 06/08/20 06/08/20 Range/Units 17:00 17:00 17:00 WBC (3.98-10.04) K/mm3 RBC (3.98-5.22) M/mm3 Hgb (11.2-15.7) gm/dl Hct (34.1-44.9) % MCV (79.4-94.8) fl MCH (25.6-32.2) pg MCHC (32.2-35.5) g/dl RDW Std Deviation (36.4-46.3) fL Plt Count (182-369) K/mm3 MPV (9.4-12.3) fl Neut % (Auto) (34.0-71.1) % Lymph % (Auto) (19.3-51.7) % Lawrence % (Auto) (4.7-12.5) % Eos % (Auto) (0.7-5.8) Baso % (Auto) (0.1-1.2) % Neut # (Auto) (1.56-6.13) K/mm3 Lymph # (Auto) (1.18-3.74) K/mm3 Lawrence # (Auto) (0.24-0.36) K/mm3 Eos # (Auto) (0.04-0.36) K/mm3 Baso # (Auto) (0.01-0.08) K/mm3 PT 10.9 (9.7-12.0) SECONDS INR 1.02 APTT (21.7-31.4) SECONDS Puncture Site ABG pH (7.35-7.45) ABG pCO2 (35.0-45.0) mmHg ABG pO2 (80.0-100.0) mmHg ABG HCO3 (22.0-26.0) meq/L ABG O2 Saturation (96.0-97.0) % ABG Base Excess (-2-2.0) Hao Test O2 Delivery Device Oxygen Flow Rate FiO2 (21.00-100.00) % Sodium (136-145) mEq/L Potassium (3.5-5.1) mEq/L Chloride (98-107) mEq/L Carbon Dioxide (21-32) mEq/L Anion Gap (5-15) BUN (7-18) mg/dL Creatinine (0.55-1.02) mg/dL Est Cr Clr Drug Dosing mL/min Estimated GFR (MDRD) (>60) mL/min BUN/Creatinine Ratio (14-18) Glucose (83-115) mg/dL Calcium (8.5-10.1) mg/dL Ferritin 209 (8-252) ng/ml Total Bilirubin (0.2-1.0) mg/dL AST (15-37) U/L ALT (14-59) U/L Alkaline Phosphatase (46-116) U/L Lactate Dehydrogenase (81-234) U/L Troponin I (0.00-0.056) ng/mL C-Reactive Protein (<1.0) mg/dL NT-Pro-B Natriuret Pep 61217 H (0-450) pg/mL Total Protein (6.4-8.2) g/dl Albumin (3.4-5.0) g/dl Globulin gm/dL Albumin/Globulin Ratio (1-2) 06/08/20 Range/Units 19:18 WBC (3.98-10.04) K/mm3 RBC (3.98-5.22) M/mm3 Hgb (11.2-15.7) gm/dl Hct (34.1-44.9) % MCV (79.4-94.8) fl MCH (25.6-32.2) pg MCHC (32.2-35.5) g/dl RDW Std Deviation (36.4-46.3) fL Plt Count (182-369) K/mm3 MPV (9.4-12.3) fl Neut % (Auto) (34.0-71.1) % Lymph % (Auto) (19.3-51.7) % Lawrence % (Auto) (4.7-12.5) % Eos % (Auto) (0.7-5.8) Baso % (Auto) (0.1-1.2) % Neut # (Auto) (1.56-6.13) K/mm3 Lymph # (Auto) (1.18-3.74) K/mm3 Lawrence # (Auto) (0.24-0.36) K/mm3 Eos # (Auto) (0.04-0.36) K/mm3 Baso # (Auto) (0.01-0.08) K/mm3 PT (9.7-12.0) SECONDS INR APTT (21.7-31.4) SECONDS Puncture Site Lt radial ABG pH 7.42 (7.35-7.45) ABG pCO2 57.6 H (35.0-45.0) mmHg ABG pO2 101.0 H (80.0-100.0) mmHg ABG HCO3 36.8 H (22.0-26.0) meq/L ABG O2 Saturation 97.8 H (96.0-97.0) % ABG Base Excess 10.9 H (-2-2.0) Hao Test Positive O2 Delivery Device Nasal cannula Oxygen Flow Rate 1.0 FiO2 24.00 (21.00-100.00) % Sodium (136-145) mEq/L Potassium (3.5-5.1) mEq/L Chloride (98-107) mEq/L Carbon Dioxide (21-32) mEq/L Anion Gap (5-15) BUN (7-18) mg/dL Creatinine (0.55-1.02) mg/dL Est Cr Clr Drug Dosing mL/min Estimated GFR (MDRD) (>60) mL/min BUN/Creatinine Ratio (14-18) Glucose (83-115) mg/dL Calcium (8.5-10.1) mg/dL Ferritin (8-252) ng/ml Total Bilirubin (0.2-1.0) mg/dL AST (15-37) U/L ALT (14-59) U/L Alkaline Phosphatase (46-116) U/L Lactate Dehydrogenase (81-234) U/L Troponin I (0.00-0.056) ng/mL C-Reactive Protein (<1.0) mg/dL NT-Pro-B Natriuret Pep (0-450) pg/mL Total Protein (6.4-8.2) g/dl Albumin (3.4-5.0) g/dl Globulin gm/dL Albumin/Globulin Ratio (1-2) Meds: Medications Generic Name Dose Route Start Last Admin Trade Name Freq PRN Reason Stop Dose Admin Sodium Chloride 10 ml 06/08/20 16:58 06/08/20 18:01 Saline Flush FLUSH 10 ml ASDIRECTED PRN Administration Keep Vein Open Discontinued Medications Generic Name Dose Route Start Last Admin Trade Name Freq PRN Reason Stop Dose Admin Furosemide 40 mg 06/08/20 19:58 Lasix IVPUSH 06/08/20 19:59 NOW ONE - Re-Assessments/Exams Free Text/Narrative Re-Assessment/Exam: 06/08/20 19:13 CXR show quite severe cardiomegally, focal incresed density RLL, increased pulmonary congestion. trop nl. BNP very elevated at 10,100. 06/08/20 19:18. O2 sats extremely variable mid 80's to mid 90's on 3 L NC. Will turn her 02 down to 1 L NC and check ABG's at the 1 liter which is her nl PRN day time oxygen at home. Uses 02 at 3 L NC PRN at night. Already on bumex 2 mg daily and metolazone 5 mg q Weds. 06/08/20 20:06. Discussed with daughter who has medical POA. She would prefer she be admitted for treatment of her worsening CHF. With consideration of her age, fragile condition, living [place] miles out of town will admit observation status. Her renal function is surprisingly good at this time, will give lasix 40 mg IV. Departure - Departure Time of Disposition: 20:00 Disposition: Home, Self-Care 01 Condition: Poor Clinical Impression: Generalized weakness Congestive heart failure Qualifiers: Heart failure type: diastolic Heart failure chronicity: acute on chronic Qualified Code(s): I50.33 - Acute on chronic diastolic (congestive) heart failu re Dyspnea Qualifiers: Dyspnea type: unspecified Qualified Code(s): R06.00 - Dyspnea, unspecified Atrial fibrillation Qualifiers: Atrial fibrillation type: unspecified chronic Qualified Code(s): I48.20 - Chronic atrial fibrillation, unspecified; I48.2 - Chronic atrial fibrillation Referrals: Abigail Gunderson DIRECTOR OF OUTREACH [Primary Care Provider] - Forms: ED Department Discharge Sepsis Event Note (ED) - Evaluation Sepsis Screening Result: No Definite Risk - Focused Exam Vital Signs: Vital Signs Temp Pulse Resp BP 06/08/20 16:46 97.8 F 78 22 H 134/79 ED Communication - Discussed Case With (1) Discussed Case With (1): Admitting Provider (Dr Ware, decision to admit at about 19:55.) - My Orders Last 24 Hours: My Active Orders 06/08/20 16:58 Sodium Chloride 0.9% [Saline Flush] 10 ml FLUSH ASDIRECTED PRN 06/08/20 16:59 EKG 12 Lead [EKG Documentation Completion] [RC] STAT Peripheral IV Care [RC] . DIRECTED Peripheral IV Insertion Adult [OM.PC] Stat - Assessment/Plan Last 24 Hours: My Active Orders 06/08/20 16:58 Sodium Chloride 0.9% [Saline Flush] 10 ml FLUSH ASDIRECTED PRN 06/08/20 16:59 EKG 12 Lead [EKG Documentation Completion] [RC] STAT Peripheral IV Care [RC] . DIRECTED Peripheral IV Insertion Adult [OM.PC] Stat
[2020-06-08] MEDS ORDERED: Furosemide 40 MG/4 ML VIAL IVPUSH ONE (19:58)
[2020-06-08] MEDS ORDERED: Albuterol 0.083% 2.5 MG/3 ML Neb Soln NEB PRN (21:41)
[2020-06-08] MEDS ORDERED: Ondansetron 4 MG Tab.DIS PO PRN (21:41)
[2020-06-08] MEDS ORDERED: Acetaminophen 325 MG Tab PO PRN (21:41)
--- NOTE | 2020-06-08 22:01 | PCM.HP.2 ---
H&P History of Present Illness - General Date of Service: 06/08/20 Admit Problem/Dx: Admission Diagnosis/Problem Admission Diagnosis/Problem Congestive heart failure - History of Present Illness Initial Comments - Free Text/Narative: 89-year-old female with complaints of increased heart rate presents to the emerg ency department via private automobile from the [facility]. Patient apparently started feeling weak approximately 2 days ago and complained of increased shortness of breath to her primary care provider even with oxygen. When I spoke with her, several hours later and after 40 mg of Lasix, patient denied any shortness of breath. Patient related to me that her heart rate went up to 102 on her pulse oximetry and that worried her prompting her to seek medical attention, although it appears that her brought her in because of increasing shortness of breath, weakness, and hypoxia. Patient did have COVID-19 diagnosed on April 01, 2020 and after approximately 1 month she felt much better. Today when she was at her primary care providers her oxygen saturations were significantly decreased as low as 74%. When she arrived in the emergency department here oxygen saturations were better with oxygen saturations ranging from mid 80s to mid 90s on 3 L nasal cannula. By the time she was admitted she was down to 1 L nasal cannula with oxygen saturations in the mid 90s. Chest x-ray both the clinic and here in the urgent department showed a focal increased density within the right lung base with a small to moderate right-sided pleural effusion. Cardiomegaly and mild CHF noted. Patient is on Bumex 2 mg daily and spironolactone 50 mg daily. Once a week, on Wednesdays, she takes metolazone 5 mg 30 minutes before Bumex. She did take that this morning. Patient has had weight loss secondary to the COVID-19 infection but has recently had some increase in weight. EKG in the emergency department showed atrial fibrillation with a rate of 86 and slow R wave progression. Right axis deviation noted. Artifact in leads V3 and V6 make it difficult to read those leads, otherwise no other significant findings. proBNP was 10,116 in the emergency department and only 9000 2 hours and 15 minutes earlier. Patient was admitted last year with CHF exacerbation and her BNP at that time was as high as 22,000. Wendy is on 1 to 2 L/min of O2 via nasal cannula at home. - Related Data Allergies/Adverse Reactions: Allergies Allergy/AdvReac Type Severity Reaction Status Date / Time digoxin Allergy Cannot Verified 06/08/20 16:44 Remember prochlorperazine AdvReac Nausea and Verified 06/08/20 16:44 Vomiting tramadol AdvReac Nausea and Verified 06/08/20 16:44 Vomiting Home Medications: Home Meds Cyanocobalamin (Vitamin B12) [Vitamin B12] 1,000 mcg PO DAILY 07/20/16 [History] Spironolactone [Aldactone] 25 mg PO DAILY 07/20/16 [History] Bumetanide [Bumex] 2 mg PO DAILY 08/05/17 [History] Potassium Chloride 20 meq PO DAILY 08/05/17 [History] Folic Acid 1 mg PO DAILY 01/29/19 [History] Sertraline [Zoloft] 50 mg PO DAILY 01/29/19 [History] metOLazone [Metolazone] 5 mg PO WE 01/29/19 [History] Calcium Carbonate/Vitamin D3 [Caltrate 600 Plus D3 Tablet] 1 tab PO BID 06/08/20 [History] Ferrous Sulfate 325 mg PO DAILY 06/08/20 [History] Psyllium Husk [Psyllium Fiber] 2 caplet PO DAILY 06/08/20 [History] Vit C/E/Zn/Coppr/Lutein/Zeaxan [Preservision Areds 2 Softgel] 1 each PO BID [History] polyethylene glycoL 3350 [MiraLAX] 17 gm PO BEDTIME 06/08/20 [History] Past Medical History HEENT History: Reports: Cataract, Impaired Vision Cardiovascular History: Reports: Afib, Cardiomyopathy, Heart Murmur, High C holesterol, Hypertension, Other (See Below) Other Cardiovascular History: Aortic stenosis, Mitral regurgitation, tricuspid regurgitation, valvular cardiomyopathy Respiratory History: Reports: Other (See Below) Other Respiratory History: Pulmonary HTN Gastrointestinal History: Reports: None Other Gastrointestinal History: duedenol ulcer, diverticulii Genitourinary History: Reports: None [employer] History: Reports: Musculoskeletal History: Reports: Arthritis Neurological History: Reports: None Psychiatric History: Reports: Anxiety Endocrine/Metabolic History: Reports: Osteopenia Hematologic History: Reports: None Other Hematologic History: antiphospholipid blood disorder... only has bleeding issues when on thinners Immunologic History: Reports: None Oncologic (Cancer) History: Reports: None Dermatologic History: Reports: None - Infectious Disease History Infectious Disease History: Reports: None - Past Surgical History Head Surgeries/Procedures: Reports: None HEENT Surgical History: Reports: Cataract Surgery, Oral Surgery Respiratory Surgical History: Reports: None GI Surgical History: Reports: None Female Surgical History: Reports: Hysterectomy Endocrine Surgical History: Reports: None Neurological Surgical History: Reports: None Musculoskeletal Surgical History: Reports: None Oncologic Surgical History: Reports: None Dermatological Surgical History: Reports: None Social & Family History - Family History Family Medical History: No Pertinent Family History Cardiac: Reports: [place], Other (See Below) - Tobacco Use Tobacco Use Status *Q: Former Tobacco User Used Tobacco, but Quit: Yes Month/Year Tobacco Last Used: 06/1966 - Caffeine Use Caffeine Use: Reports: Tea Other Caffeine Use: decaf - Recreational Drug Use Recreational Drug Use: No - Living Situation & Occupation Living situation: Reports: Occupation: Retired H&P Review of Systems - Review of Systems: Review Of Systems: Comprehensive ROS is negative, except as noted in HPI. Exam - Exam Exam: See Below - Vital Signs Vital Signs: Last Vital Signs Temp 97.8 F 06/08/20 16:46 Pulse 78 06/08/20 16:46 Resp 22 H 06/08/20 16:46 BP 134/79 06/08/20 16:46 Pulse Ox Weight: 119 lb - Exam Quality Assessment: Supplemental Oxygen General: Alert, Oriented, 4 HEENT: Conjunctiva Clear, Mucosa Moist & Briny Breezes, Normal Nasal Septum. No: Hearing Intact (Hard of hearing and wears hearing aids.) Neck: Supple, Trachea Midline, 2 Lungs: Rales (Bibasilar rales). No: Normal Respiratory Effort (Increased respiratory rate with mild increase in effort consistent with emphysema.) Cardiovascular: Irregular Rhythm (And rate), Systolic Murmur GI/Abdominal Exam: Normal Bowel Sounds, Soft, Non-Tender, No Organomegaly, No Distention, No Abnormal Bruit, No Mass, Pelvis Stable Extremities: Normal Inspection, Non-Tender, Normal Capillary Refill, Pedal Edema (scant) Peripheral Pulses: 1+: Posterior Tibial (L), Posterior Tibial (R), Dorsalis Pedis (L), Dorsalis Pedis (R) Skin: Warm, Dry, Intact Neurological: Cranial Nerves Intact Neuro Extensive - Mental Status: Alert, Oriented x3, Normal Mood/Affect, Normal Cognition, Memory Intact Psychiatric: Alert, Normal Affect, Normal Mood - Patient Data Lab Results Last 24 hrs: Laboratory Results - last 24 hr 06/08/20 06/08/20 06/08/20 Range/Units 17:00 17:00 17:00 WBC 3.80 L (3.98-10.04) K/mm3 RBC 3.50 L (3.98-5.22) M/mm3 Hgb 10.4 L (11.2-15.7) gm/dl Hct 34.3 (34.1-44.9) % MCV 98.0 H D (79.4-94.8) fl MCH 29.7 (25.6-32.2) pg MCHC 30.3 L (32.2-35.5) g/dl RDW Std Deviation 52.1 H (36.4-46.3) fL Plt Count 129 L (182-369) K/mm3 MPV 10.1 (9.4-12.3) fl Neut % (Auto) 64.2 (34.0-71.1) % Lymph % (Auto) 19.2 L (19.3-51.7) % [place] % (Auto) 14.5 H (4.7-12.5) % Eos % (Auto) 1.6 (0.7-5.8) Baso % (Auto) 0.5 (0.1-1.2) % Neut # (Auto) 2.44 (1.56-6.13) K/mm3 Lymph # (Auto) 0.73 L (1.18-3.74) K/mm3 [place] # (Auto) 0.55 H (0.24-0.36) K/mm3 Eos # (Auto) 0.06 (0.04-0.36) K/mm3 Baso # (Auto) 0.02 (0.01-0.08) K/mm3 PT (9.7-12.0) SECONDS INR APTT 27.3 (21.7-31.4) SECONDS Puncture Site ABG pH (7.35-7.45) ABG pCO2 (35.0-45.0) mmHg ABG pO2 (80.0-100.0) mmHg ABG HCO3 (22.0-26.0) meq/L ABG O2 Saturation (96.0-97.0) % ABG Base Excess (-2-2.0) Hao Test O2 Delivery Device Oxygen Flow Rate FiO2 (21.00-100.00) % Sodium 138 (136-145) mEq/L Potassium 3.5 (3.5-5.1) mEq/L Chloride 97 L (98-107) mEq/L Carbon Dioxide 38 H (21-32) mEq/L Anion Gap 6.5 (5-15) BUN 28 H (7-18) mg/dL Creatinine 0.9 (0.55-1.02) mg/dL Est Cr Clr Drug Dosing 31.04 mL/min Estimated GFR (MDRD) 59 (>60) mL/min BUN/Creatinine Ratio 31.1 H (14-18) Glucose 135 H (83-115) mg/dL Calcium 9.7 (8.5-10.1) mg/dL Ferritin (8-252) ng/ml Total Bilirubin 0.4 (0.2-1.0) mg/dL AST 20 (15-37) U/L ALT 22 (14-59) U/L Alkaline Phosphatase 90 (46-116) U/L Lactate Dehydrogenase 355 H (81-234) U/L Troponin I < 0.017 (0.00-0.056) ng/mL C-Reactive Protein 1.5 H* (<1.0) mg/dL NT-Pro-B Natriuret Pep (0-450) pg/mL Total Protein 7.7 (6.4-8.2) g/dl Albumin 3.7 (3.4-5.0) g/dl Globulin 4.0 gm/dL Albumin/Globulin Ratio 0.9 L (1-2) 06/08/20 06/08/20 06/08/20 Range/Units 17:00 17:00 17:00 WBC (3.98-10.04) K/mm3 RBC (3.98-5.22) M/mm3 Hgb (11.2-15.7) gm/dl Hct (34.1-44.9) % MCV (79.4-94.8) fl MCH (25.6-32.2) pg MCHC (32.2-35.5) g/dl RDW Std Deviation (36.4-46.3) fL Plt Count (182-369) K/mm3 MPV (9.4-12.3) fl Neut % (Auto) (34.0-71.1) % Lymph % (Auto) (19.3-51.7) % [place] % (Auto) (4.7-12.5) % Eos % (Auto) (0.7-5.8) Baso % (Auto) (0.1-1.2) % Neut # (Auto) (1.56-6.13) K/mm3 Lymph # (Auto) (1.18-3.74) K/mm3 [place] # (Auto) (0.24-0.36) K/mm3 Eos # (Auto) (0.04-0.36) K/mm3 Baso # (Auto) (0.01-0.08) K/mm3 PT 10.9 (9.7-12.0) SECONDS INR 1.02 APTT (21.7-31.4) SECONDS Puncture Site ABG pH (7.35-7.45) ABG pCO2 (35.0-45.0) mmHg ABG pO2 (80.0-100.0) mmHg ABG HCO3 (22.0-26.0) meq/L ABG O2 Saturation (96.0-97.0) % ABG Base Excess (-2-2.0) Hao Test O2 Delivery Device Oxygen Flow Rate FiO2 (21.00-100.00) % Sodium (136-145) mEq/L Potassium (3.5-5.1) mEq/L Chloride (98-107) mEq/L Carbon Dioxide (21-32) mEq/L Anion Gap (5-15) BUN (7-18) mg/dL Creatinine (0.55-1.02) mg/dL Est Cr Clr Drug Dosing mL/min Estimated GFR (MDRD) (>60) mL/min BUN/Creatinine Ratio (14-18) Glucose (83-115) mg/dL Calcium (8.5-10.1) mg/dL Ferritin 209 (8-252) ng/ml Total Bilirubin (0.2-1.0) mg/dL AST (15-37) U/L ALT (14-59) U/L Alkaline Phosphatase (46-116) U/L Lactate Dehydrogenase (81-234) U/L Troponin I (0.00-0.056) ng/mL C-Reactive Protein (<1.0) mg/dL NT-Pro-B Natriuret Pep 73001 H (0-450) pg/mL Total Protein (6.4-8.2) g/dl Albumin (3.4-5.0) g/dl Globulin gm/dL Albumin/Globulin Ratio (1-2) 06/08/20 Range/Units 19:18 WBC (3.98-10.04) K/mm3 RBC (3.98-5.22) M/mm3 Hgb (11.2-15.7) gm/dl Hct (34.1-44.9) % MCV (79.4-94.8) fl MCH (25.6-32.2) pg MCHC (32.2-35.5) g/dl RDW Std Deviation (36.4-46.3) fL Plt Count (182-369) K/mm3 MPV (9.4-12.3) fl Neut % (Auto) (34.0-71.1) % Lymph % (Auto) (19.3-51.7) % [place] % (Auto) (4.7-12.5) % Eos % (Auto) (0.7-5.8) Baso % (Auto) (0.1-1.2) % Neut # (Auto) (1.56-6.13) K/mm3 Lymph # (Auto) (1.18-3.74) K/mm3 [place] # (Auto) (0.24-0.36) K/mm3 Eos # (Auto) (0.04-0.36) K/mm3 Baso # (Auto) (0.01-0.08) K/mm3 PT (9.7-12.0) SECONDS INR APTT (21.7-31.4) SECONDS Puncture Site Lt radial ABG pH 7.42 (7.35-7.45) ABG pCO2 57.6 H (35.0-45.0) mmHg ABG pO2 101.0 H (80.0-100.0) mmHg ABG HCO3 36.8 H (22.0-26.0) meq/L ABG O2 Saturation 97.8 H (96.0-97.0) % ABG Base Excess 10.9 H (-2-2.0) Hao Test Positive O2 Delivery Device Nasal cannula Oxygen Flow Rate 1.0 FiO2 24.00 (21.00-100.00) % Sodium (136-145) mEq/L Potassium (3.5-5.1) mEq/L Chloride (98-107) mEq/L Carbon Dioxide (21-32) mEq/L Anion Gap (5-15) BUN (7-18) mg/dL Creatinine (0.55-1.02) mg/dL Est Cr Clr Drug Dosing mL/min Estimated GFR (MDRD) (>60) mL/min BUN/Creatinine Ratio (14-18) Glucose (83-115) mg/dL Calcium (8.5-10.1) mg/dL Ferritin (8-252) ng/ml Total Bilirubin (0.2-1.0) mg/dL AST (15-37) U/L ALT (14-59) U/L Alkaline Phosphatase (46-116) U/L Lactate Dehydrogenase (81-234) U/L Troponin I (0.00-0.056) ng/mL C-Reactive Protein (<1.0) mg/dL NT-Pro-B Natriuret Pep (0-450) pg/mL Total Protein (6.4-8.2) g/dl Albumin (3.4-5.0) g/dl Globulin gm/dL Albumin/Globulin Ratio (1-2) Result Diagrams: 06/08/20 17:00 06/08/20 17:00 Sepsis Event Note - Evaluation Sepsis Screening Result: No Definite Risk - Focused Exam Vital Signs: Vital Signs Temp Pulse Resp BP 06/08/20 16:46 97.8 F 78 22 H 134/79 - Problem List (1) CHF exacerbation SNOMED Code(s): 684119138, 11783259304827 ICD Code: I50.9 - HEART FAILURE, UNSPECIFIED Status: Acute Current Visit: Yes (2) Pleural effusion on right SNOMED Code(s): 56942618 ICD Code: J90 - PLEURAL EFFUSION, NOT ELSEWHERE CLASSIFIED Status: Acute Current Visit: Yes (3) Atrial fibrillation SNOMED Code(s): 03917192 ICD Code: I48.91 - UNSPECIFIED ATRIAL FIBRILLATION Status: Acute Current Visit: Yes Qualifiers: Atrial fibrillation type: unspecified chronic Qualified Code(s): I48.20 - Chronic atrial fibrillation, unspecified; I48.2 - Chronic atrial fibrillation (4) Anemia SNOMED Code(s): 215699409 ICD Code: D64.9 - ANEMIA, UNSPECIFIED Status: Acute Priority: High Current Visit: No Qualifiers: Anemia type: iron deficiency Iron deficiency anemia type: chronic blood loss Qualified Code(s): D50.0 - Iron deficiency anemia secondary to blood loss (chronic) Problem List Initiated/Reviewed/Updated: Yes Orders Last 24hrs: Active Orders 24 hr Category Date Time Status Patient Status [ADT] Routine ADT 06/08/20 20:42 Active EKG 12 Lead [EKG Documentation Completion] [RC] STAT Care 06/08/20 16:59 Active Intake and Output Strict [RC] ASDIRECTED Care 06/08/20 21:41 Ordered Oxygen Therapy [RC] PRN Care 06/08/20 21:41 Ordered Peripheral IV Care [RC] . DIRECTED Care 06/08/20 16:59 Active RT Aerosol Therapy [RC] ASDIRECTED Care 06/08/20 21:44 Ordered Up With Assistance [RC] ASDIRECTED Care 06/08/20 21:41 Ordered VTE/DVT Education [RC] PER UNIT ROUTINE Care 06/08/20 21:41 Ordered Vital Signs [RC] Q4H Care 06/08/20 21:41 Ordered 2 Gram Sodium Diet [DIET] Diet 06/09/20 Breakfast Ordered CBC WITH AUTO DIFF [HEME] AM Lab 06/09/20 05:11 Ordered COMPREHENSIVE METABOLIC PN,CMP [CHEM] AM Lab 06/09/20 05:11 Ordered MAGNESIUM [CHEM] AM Lab 06/09/20 05:11 Ordered TROPONIN I [CHEM] AM Lab 06/09/20 05:11 Ordered Acetaminophen [TylenoL] Med 06/08/20 21:41 Ordered 650 mg PO Q4H PRN Albuterol [Proventil Neb Soln] Med 06/08/20 21:41 Ordered 2.5 mg NEB Q2H PRN Enoxaparin [Lovenox] Med 06/09/20 09:00 Ordered 30 mg SUBCUT DAILY Ondansetron [Zofran ODT] Med 06/08/20 21:41 Ordered 4 mg PO Q4H PRN Sodium Chloride 0.9% [Saline Flush] Med 12/16/20 16:58 Active 10 ml FLUSH ASDIRECTED PRN Peripheral IV Insertion Adult [OM.PC] Stat Oth 06/08/20 16:59 Ordered Resuscitation Status Routine Resus Stat 06/08/20 21:41 Ordered Medication Orders Acetaminophen (Tylenol) 650 mg PO Q4H PRN PRN Reason: Pain (Mild 1-3)/fever Albuterol (Proventil Neb Soln) 2.5 mg NEB Q2H PRN PRN Reason: Shortness Of Breath/wheezing Enoxaparin Sodium (Lovenox) 30 mg SUBCUT DAILY HUNTER Ondansetron HCl (Zofran Odt) 4 mg PO Q4H PRN PRN Reason: nausea, able to take PO Sodium Chloride (Saline Flush) 10 ml FLUSH ASDIRECTED PRN PRN Reason: Keep Vein Open Last Admin: 06/08/20 18:01 Dose: 10 ml Documented by: LORETO Assessment/Plan Comment:: Assessment 89-year-old female with atrial fibrillation, cardiomegaly, congestive heart failure with exacerbation of CHF, aortic stenosis, and right-sided pleural effusion. * Chest x-ray shows focal increased density with right lung base. Small right- sided pleural effusion appears to be present. Cardiomegaly and mild increase CHF. * BNP of 10,116. * Back to baseline oxygenation after 40 mg of IV Lasix in the emergency d epartment. * Home diuretics include Bumex 2 mg daily, spironolactone 50 mg p.o. daily, and metolazone 5 mg on Saturday. She received all 3 this morning. * Shortness of breath appears improved since arrival in the emergency department. * She is not currently on medication for rate control or for anticoagulation because of risk for bleeding. 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 2 months post Covid, diagnosed 04/01/2020 * Patient was symptomatic and fatigue for approximately 1 month and has done well since then. Normochromic, normocytic anemia * Hemoglobin 10.6 * Likely anemia of chronic disease. Thrombocytopenia * Platelets 128 Plan * Observation on telemetry * Strict I's and O's and daily weights * No further diuresis overnight * CBC, CMP, mag in the morning * Daughter will contact her business intern in the morning * Home meds including Bumex and spironolactone ordered for morning * FiO2 to keep SPO2 greater than 90%. * VTE prophylaxis with Lovenox * CODE STATUS: DNR/DNI * Anticipated length of stay 1 to 2 days. - Mortality Measure Prognosis:: Good
[2020-06-09] MEDS ORDERED: Enoxaparin 40 MG/0.4 ML Syringe SUBCUT SCH (09:00)
--- NOTE | 2020-06-09 09:47 | PCM.PN ---
- General Info Date of Service: 06/09/20 Admission Dx/Problem (Free Text): Admission Diagnosis/Problem Admission Diagnosis/Problem Congestive heart failure Subjective Update: No overnight or acute issues. She feels much better this AM. She is still on supplemental O2. She denies having fever or chills. Functional Status: Reports: Pain Controlled - Review of Systems General: Denies: Fever, Chills HEENT: Denies: Contact Lenses Pulmonary: Reports: Shortness of Breath, Cough Cardiovascular: Denies: Chest Pain Gastrointestinal: Denies: Abdominal Pain, Nausea, Vomiting Genitourinary: Reports: No Symptoms Musculoskeletal: Reports: Back Pain Skin: Denies: Rash Neurological: Denies: Confusion, Weakness Psychiatric: Denies: Anxiety, Agitation - Patient Data Vitals - Most Recent: Last Vital Signs Temp 37.1 C 06/09/20 07:21 Pulse 57 L 06/09/20 07:21 Resp 18 06/09/20 07:21 BP 108/62 06/09/20 07:21 Pulse Ox 96 06/09/20 07:21 Weight - Most Recent: 50.031 kg I&O - Last 24 Hours: Intake & Output 06/08/20 06/09/20 06/09/20 22:59 06:59 14:59 Intake Total 300 Output Total 1850 Balance -1550 Lab Results Last 24 Hours: Laboratory Results - last 24 hr 06/08/20 06/08/20 06/08/20 Range/Units 17:00 17:00 17:00 WBC 3.80 L (3.98-10.04) K/mm3 RBC 3.50 L (3.98-5.22) M/mm3 Hgb 10.4 L (11.2-15.7) gm/dl Hct 34.3 (34.1-44.9) % MCV 98.0 H D (79.4-94.8) fl MCH 29.7 (25.6-32.2) pg MCHC 30.3 L (32.2-35.5) g/dl RDW Std Deviation 52.1 H (36.4-46.3) fL Plt Count 129 L (182-369) K/mm3 MPV 10.1 (9.4-12.3) fl Neut % (Auto) 64.2 (34.0-71.1) % Lymph % (Auto) 19.2 L (19.3-51.7) % [place] % (Auto) 14.5 H (4.7-12.5) % Eos % (Auto) 1.6 (0.7-5.8) Baso % (Auto) 0.5 (0.1-1.2) % Neut # (Auto) 2.44 (1.56-6.13) K/mm3 Lymph # (Auto) 0.73 L (1.18-3.74) K/mm3 [place] # (Auto) 0.55 H (0.24-0.36) K/mm3 Eos # (Auto) 0.06 (0.04-0.36) K/mm3 Baso # (Auto) 0.02 (0.01-0.08) K/mm3 Manual Slide Review PT (9.7-12.0) SECONDS INR APTT 27.3 (21.7-31.4) SECONDS Puncture Site ABG pH (7.35-7.45) ABG pCO2 (35.0-45.0) mmHg ABG pO2 (80.0-100.0) mmHg ABG HCO3 (22.0-26.0) meq/L ABG O2 Saturation (96.0-97.0) % ABG Base Excess (-2-2.0) Hao Test O2 Delivery Device Oxygen Flow Rate FiO2 (21.00-100.00) % Sodium 138 (136-145) mEq/L Potassium 3.5 (3.5-5.1) mEq/L Chloride 97 L (98-107) mEq/L Carbon Dioxide 38 H (21-32) mEq/L Anion Gap 6.5 (5-15) BUN 28 H (7-18) mg/dL Creatinine 0.9 (0.55-1.02) mg/dL Est Cr Clr Drug Dosing 31.04 mL/min Estimated GFR (MDRD) 59 (>60) mL/min BUN/Creatinine Ratio 31.1 H (14-18) Glucose 135 H (83-115) mg/dL Calcium 9.7 (8.5-10.1) mg/dL Magnesium (1.8-2.4) mg/dl Ferritin (8-252) ng/ml Total Bilirubin 0.4 (0.2-1.0) mg/dL AST 20 (15-37) U/L ALT 22 (14-59) U/L Alkaline Phosphatase 90 (46-116) U/L Lactate Dehydrogenase 355 H (81-234) U/L Troponin I < 0.017 (0.00-0.056) ng/mL C-Reactive Protein 1.5 H* (<1.0) mg/dL NT-Pro-B Natriuret Pep (0-450) pg/mL Total Protein 7.7 (6.4-8.2) g/dl Albumin 3.7 (3.4-5.0) g/dl Globulin 4.0 gm/dL Albumin/Globulin Ratio 0.9 L (1-2) 06/08/20 06/08/20 06/08/20 Range/Units 17:00 17:00 17:00 WBC (3.98-10.04) K/mm3 RBC (3.98-5.22) M/mm3 Hgb (11.2-15.7) gm/dl Hct (34.1-44.9) % MCV (79.4-94.8) fl MCH (25.6-32.2) pg MCHC (32.2-35.5) g/dl RDW Std Deviation (36.4-46.3) fL Plt Count (182-369) K/mm3 MPV (9.4-12.3) fl Neut % (Auto) (34.0-71.1) % Lymph % (Auto) (19.3-51.7) % [place] % (Auto) (4.7-12.5) % Eos % (Auto) (0.7-5.8) Baso % (Auto) (0.1-1.2) % Neut # (Auto) (1.56-6.13) K/mm3 Lymph # (Auto) (1.18-3.74) K/mm3 [place] # (Auto) (0.24-0.36) K/mm3 Eos # (Auto) (0.04-0.36) K/mm3 Baso # (Auto) (0.01-0.08) K/mm3 Manual Slide Review PT 10.9 (9.7-12.0) SECONDS INR 1.02 APTT (21.7-31.4) SECONDS Puncture Site ABG pH (7.35-7.45) ABG pCO2 (35.0-45.0) mmHg ABG pO2 (80.0-100.0) mmHg ABG HCO3 (22.0-26.0) meq/L ABG O2 Saturation (96.0-97.0) % ABG Base Excess (-2-2.0) Hao Test O2 Delivery Device Oxygen Flow Rate FiO2 (21.00-100.00) % Sodium (136-145) mEq/L Potassium (3.5-5.1) mEq/L Chloride (98-107) mEq/L Carbon Dioxide (21-32) mEq/L Anion Gap (5-15) BUN (7-18) mg/dL Creatinine (0.55-1.02) mg/dL Est Cr Clr Drug Dosing mL/min Estimated GFR (MDRD) (>60) mL/min BUN/Creatinine Ratio (14-18) Glucose (83-115) mg/dL Calcium (8.5-10.1) mg/dL Magnesium (1.8-2.4) mg/dl Ferritin 209 (8-252) ng/ml Total Bilirubin (0.2-1.0) mg/dL AST (15-37) U/L ALT (14-59) U/L Alkaline Phosphatase (46-116) U/L Lactate Dehydrogenase (81-234) U/L Troponin I (0.00-0.056) ng/mL C-Reactive Protein (<1.0) mg/dL NT-Pro-B Natriuret Pep 72058 H (0-450) pg/mL Total Protein (6.4-8.2) g/dl Albumin (3.4-5.0) g/dl Globulin gm/dL Albumin/Globulin Ratio (1-2) 06/08/20 06/09/20 06/09/20 Range/Units 19:18 05:08 05:08 WBC 2.86 L (3.98-10.04) K/mm3 RBC 3.14 L (3.98-5.22) M/mm3 Hgb 9.4 L (11.2-15.7) gm/dl Hct 30.7 L (34.1-44.9) % MCV 97.8 H (79.4-94.8) fl MCH 29.9 (25.6-32.2) pg MCHC 30.6 L (32.2-35.5) g/dl RDW Std Deviation 51.2 H (36.4-46.3) fL Plt Count 111 L (182-369) K/mm3 MPV 10.8 (9.4-12.3) fl Neut % (Auto) 58.4 (34.0-71.1) % Lymph % (Auto) 18.5 L (19.3-51.7) % [place] % (Auto) 18.2 H (4.7-12.5) % Eos % (Auto) 4.2 (0.7-5.8) Baso % (Auto) 0.7 (0.1-1.2) % Neut # (Auto) 1.67 (1.56-6.13) K/mm3 Lymph # (Auto) 0.53 L (1.18-3.74) K/mm3 [place] # (Auto) 0.52 H (0.24-0.36) K/mm3 Eos # (Auto) 0.12 (0.04-0.36) K/mm3 Baso # (Auto) 0.02 (0.01-0.08) K/mm3 Manual Slide Review Abnormal smear PT (9.7-12.0) SECONDS INR APTT (21.7-31.4) SECONDS Puncture Site Lt radial ABG pH 7.42 (7.35-7.45) ABG pCO2 57.6 H (35.0-45.0) mmHg ABG pO2 101.0 H (80.0-100.0) mmHg ABG HCO3 36.8 H (22.0-26.0) meq/L ABG O2 Saturation 97.8 H (96.0-97.0) % ABG Base Excess 10.9 H (-2-2.0) Hao Test Positive O2 Delivery Device Nasal cannula Oxygen Flow Rate 1.0 FiO2 24.00 (21.00-100.00) % Sodium 139 (136-145) mEq/L Potassium 3.2 L (3.5-5.1) mEq/L Chloride 98 (98-107) mEq/L Carbon Dioxide 38 H (21-32) mEq/L Anion Gap 6.2 (5-15) BUN 30 H (7-18) mg/dL Creatinine 0.9 (0.55-1.02) mg/dL Est Cr Clr Drug Dosing 31.04 mL/min Estimated GFR (MDRD) 59 (>60) mL/min BUN/Creatinine Ratio 33.3 H (14-18) Glucose 86 (83-115) mg/dL Calcium 9.0 (8.5-10.1) mg/dL Magnesium 1.7 L (1.8-2.4) mg/dl Ferritin (8-252) ng/ml Total Bilirubin 0.4 (0.2-1.0) mg/dL AST 17 (15-37) U/L ALT 21 (14-59) U/L Alkaline Phosphatase 69 (46-116) U/L Lactate Dehydrogenase (81-234) U/L Troponin I 0.020 (0.00-0.056) ng/mL C-Reactive Protein (<1.0) mg/dL NT-Pro-B Natriuret Pep (0-450) pg/mL Total Protein 6.6 (6.4-8.2) g/dl Albumin 3.1 L (3.4-5.0) g/dl Globulin 3.5 gm/dL Albumin/Globulin Ratio 0.9 L (1-2) Med Orders - Current: Current Medications Acetaminophen (Tylenol) 650 mg PO Q4H PRN PRN Reason: Pain (Mild 1-3)/fever Albuterol (Proventil Neb Soln) 2.5 mg NEB Q2H PRN PRN Reason: Shortness Of Breath/wheezing Ondansetron HCl (Zofran Odt) 4 mg PO Q4H PRN PRN Reason: nausea, able to take PO Sodium Chloride (Saline Flush) 10 ml FLUSH ASDIRECTED PRN PRN Reason: Keep Vein Open Last Admin: 06/08/20 18:01 Dose: 10 ml Documented by: Discontinued Medications Enoxaparin Sodium (Lovenox) 40 mg SUBCUT DAILY HUNTER Furosemide (Lasix) 40 mg IVPUSH NOW ONE Stop: 06/08/20 19:59 Last Admin: 06/08/20 20:16 Dose: 40 mg Documented by: - Exam Quality Assessment: Supplemental Oxygen General: Alert, Oriented, Cooperative, No Acute Distress HEENT: Pupils Equal, Pupils Reactive, EOMI, Mucous Membr. Moist/[place]: Supple Lungs: Normal Respiratory Effort, Crackles Cardiovascular: Regular Rate, Regular Rhythm, Murmurs (pansystolic) GI/Abdominal Exam: Normal Bowel Sounds, Soft, Non-Tender, No Organomegaly, No Distention, No Abnormal Bruit, No Mass (Female) Exam: Deferred Back Exam: Normal Inspection, Decreased Range of Motion, Other (kyphosis) Extremities: Normal Inspection, Normal Range of Motion, Non-Tender, No Pedal Edema, Normal Capillary Refill Peripheral Pulses: 1+: Dorsalis Pedis (L), Dorsalis Pedis (R) Skin: Warm, Dry, Intact Neurological: No New Focal Deficit Psy/Mental Status: Alert, Normal Affect, Normal Mood Sepsis Event Note - Evaluation Sepsis Screening Result: No Definite Risk - Focused Exam Vital Signs: Vital Signs Temp Pulse Resp BP Pulse Ox Pulse Ox 06/09/20 07:21 37.1 C 57 L 18 108/62 96 06/09/20 06:08 96 06/09/20 03:59 36.7 C 62 18 119/68 94 L - Problem List Review Problem List Initiated/Reviewed/Updated: Yes - Assessment Assessment:: Acute: 89-year-old female who as admitted for shortness of breath and hypoxia Right sided CAP, POA Congestive heart failure with exacerbation of CHF, unknown EF Aortic stenosis Cardiomegaly Right-sided pleural effusion * Chest x-ray shows focal increased density with right lung base. Small right- sided pleural effusion appears to be present. Cardiomegaly and mild increase CHF * BNP of 10,116--> will repeat * Back to baseline oxygenation after 40 mg of IV Lasix in the emergency department; on 1L NC * Home diuretics include Bumex 2 mg daily, spironolactone 50 mg p.o. daily, and metolazone 5 mg on Saturday * Shortness of breath appears improved since arrival in the emergency department * She is not currently on medication for anticoagulation because of risk for bleeding * Dr. 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 Cleveland is her tour guide Hypokalemia and Hypomagnesemia * K of 3.2 and Mg of 1.7 * Likely from diuretic use * Will replete and monitor Hypoalbuminemia * Albumin of 3.1 * Dancing [employer] following - Plan Plan:: Plan: 06/08/2020 * Observation on telemetry * Strict I's and O's and daily weights * No further diuresis overnight * CBC, CMP, mag in the morning * Daughter will contact her tour guide in the morning * Home meds including Bumex and spironolactone ordered for morning * FiO2 to keep SPO2 greater than 90%. * VTE prophylaxis with Lovenox * CODE STATUS: DNR/DNI * Anticipated length of stay 1 to 2 days. 06/09/2020 * Change to inpatient * Start IV rocephin and azithromycin for CAP * 2D echo to assess ejection fraction * AHA diet * Routine AM labs with inflammatory markers * IS as directed with beside pulmonary exercise * PT/OT as needed * VTE: SCDs * Code status is DNR/DNI * LOS > 95 hrs for treatment of cap and acute congestive heart failure
[2020-06-09] MEDS ORDERED: Potassium Chloride 20 MEQ Tab.ER PO ONE (11:15)
[2020-06-09] MEDS: cefTRIAXone 1 GM in Sodium Chloride 0.9% 100 ML IV SCH (12:29)
[2020-06-09] MEDS: Azithromycin 500 MG in Sodium Chloride 0.9% 250 ML IV SCH (13:51)
[2020-06-09] MEDS ORDERED: Midodrine 5 MG Tab PO STA (15:41)
[2020-06-09] MEDS ORDERED: Sodium Chloride 0.9% 500 ML IV ONE (15:45)
[2020-06-09] MEDS: Sertraline 50 MG Tab PO SCH (16:22)
[2020-06-09] MEDS: Bumetanide 1 MG Tab PO SCH (16:23)
[2020-06-09] MEDS: Spironolactone 25 MG Tab PO SCH (16:23)
[2020-06-09] MEDS: Polyethylene Glycol 3350 Powder 17 GM Packet PO SCH (23:01)
[2020-06-09] MEDS: Calcium Carbonate/Vitamin D3 600 MG-200 Units Tab PO SCH (23:01)
[2020-06-09] MEDS: Multivitamins with Minerals/Folic Acid/Lutein/Zeaxanth Tab PO SCH (23:01)
[2020-06-10] MEDS ORDERED: PSYLLIUM HUSK PO SCH (09:00)
[2020-06-10] MEDS: Bumetanide 1 MG Tab PO SCH (09:45)
[2020-06-10] MEDS: Sertraline 50 MG Tab PO SCH (09:46)
[2020-06-10] MEDS: Multivitamins with Minerals/Folic Acid/Lutein/Zeaxanth Tab PO SCH ×2 (09:46→20:54)
[2020-06-10] MEDS: Spironolactone 25 MG Tab PO SCH (09:46)
[2020-06-10] MEDS: Calcium Polycarbophil 625 MG Tab PO SCH (09:46)
[2020-06-10] MEDS: Folic Acid 1 MG Tab PO SCH (09:46)
[2020-06-10] MEDS: Potassium Chloride 20 MEQ Tab.ER PO SCH (09:46)
[2020-06-10] MEDS: Cyanocobalamin (Vitamin B12) 1,000 MCG Tab PO SCH (09:46)
[2020-06-10] MEDS: Ferrous Sulfate 324 MG Tab.EC PO SCH (09:46)
[2020-06-10] MEDS: Calcium Carbonate/Vitamin D3 600 MG-200 Units Tab PO SCH ×2 (09:46→20:54)
--- NOTE | 2020-06-10 09:46 | CR ---
Chest: Portable view of the chest was obtained. Comparison: Prior chest x-ray 06/08/20. Findings: Heart is enlarged. Pulmonary vessels are slightly congested. Increased density within the right lung base compatible with pleural effusion and difficult to exclude pneumonia. Bony structures are osteopenic. Scoliosis is noted within the spine with prior vertebroplasty and degenerative change. Impression: 1. Findings suspicious for continuing mild CHF. 2. Small right-sided pleural effusion and difficult to exclude right lower lobe pneumonia. 3. Other findings as noted above which are stable. Diagnostic code #3
[2020-06-10] MEDS: cefTRIAXone 1 GM in Sodium Chloride 0.9% 100 ML IV SCH (11:28)
--- NOTE | 2020-06-10 11:32 | PCM.PN ---
- General Info Date of Service: 06/10/20 Admission Dx/Problem (Free Text): Admission Diagnosis/Problem Admission Diagnosis/Problem Congestive heart failure Subjective Update: No overnight or acute issues. She feels good and no complaints this morning. She had a brief episode of hypotension yesterday but improved with a one time dose of midodrine and a bolus of 500 ml NS x 1. She remains on 1L NC at baseline. She reports no fever or chills. She has had occasional productive cough with yellowish sputum this AM. She has no other complaints. Functional Status: Reports: Pain Controlled, Tolerating Diet, Ambulating, Urinating. Denies: New Symptoms - Review of Systems General: Denies: Fever, Chills HEENT: Denies: Contact Lenses Pulmonary: Reports: Cough, Sputum. Denies: Shortness of Breath Cardiovascular: Denies: Chest Pain, Dyspnea on Exertion, Lightheadedness Gastrointestinal: Denies: Abdominal Pain, Nausea, Vomiting Genitourinary: Denies: Incontinence, Flank Pain Musculoskeletal: Denies: Joint Pain Skin: Denies: Rash Neurological: Denies: Confusion, Difficulty Walking, Weakness Psychiatric: Denies: Depression, Anxiety, Agitation - Patient Data Vitals - Most Recent: Last Vital Signs Temp 36.8 C 06/10/20 07:45 Pulse 60 06/10/20 07:45 Resp 20 06/10/20 08:00 BP 107/60 06/10/20 08:00 Pulse Ox 100 06/10/20 08:00 Weight - Most Recent: 51.8 kg I&O - Last 24 Hours: Intake & Output 06/09/20 06/10/20 06/10/20 22:59 06:59 14:59 Intake Total 1710 270 180 Output Total 600 650 Balance 1110 -380 180 Lab Results Last 24 Hours: Laboratory Results - last 24 hr 06/09/20 06/09/20 06/09/20 Range/Units 11:20 11:20 15:19 WBC (3.98-10.04) K/mm3 RBC (3.98-5.22) M/mm3 Hgb (11.2-15.7) gm/dl Hct (34.1-44.9) % MCV (79.4-94.8) fl MCH (25.6-32.2) pg MCHC (32.2-35.5) g/dl RDW Std Deviation (36.4-46.3) fL Plt Count (182-369) K/mm3 MPV (9.4-12.3) fl Neut % (Auto) (34.0-71.1) % Lymph % (Auto) (19.3-51.7) % [place] % (Auto) (4.7-12.5) % Eos % (Auto) (0.7-5.8) Baso % (Auto) (0.1-1.2) % Neut # (Auto) (1.56-6.13) K/mm3 Lymph # (Auto) (1.18-3.74) K/mm3 [place] # (Auto) (0.24-0.36) K/mm3 Eos # (Auto) (0.04-0.36) K/mm3 Baso # (Auto) (0.01-0.08) K/mm3 Manual Slide Review ESR 33 H (0-20) mm/hr Sodium (136-145) mEq/L Potassium (3.5-5.1) mEq/L Chloride (98-107) mEq/L Carbon Dioxide (21-32) mEq/L Anion Gap (5-15) BUN (7-18) mg/dL Creatinine (0.55-1.02) mg/dL Est Cr Clr Drug Dosing mL/min Estimated GFR (MDRD) (>60) mL/min BUN/Creatinine Ratio (14-18) Glucose (83-115) mg/dL POC Glucose 147 H (83-110) mg/dL Calcium (8.5-10.1) mg/dL Magnesium (1.8-2.4) mg/dl C-Reactive Protein 1.2 H* (<1.0) mg/dL NT-Pro-B Natriuret Pep (0-450) pg/mL 06/10/20 06/10/20 06/10/20 Range/Units 04:04 04:04 04:04 WBC 2.95 L (3.98-10.04) K/mm3 RBC 3.13 L (3.98-5.22) M/mm3 Hgb 9.3 L (11.2-15.7) gm/dl Hct 30.7 L (34.1-44.9) % MCV 98.1 H (79.4-94.8) fl MCH 29.7 (25.6-32.2) pg MCHC 30.3 L (32.2-35.5) g/dl RDW Std Deviation 51.1 H (36.4-46.3) fL Plt Count 112 L (182-369) K/mm3 MPV 11.2 (9.4-12.3) fl Neut % (Auto) 55.6 (34.0-71.1) % Lymph % (Auto) 19.0 L (19.3-51.7) % [place] % (Auto) 20.0 H (4.7-12.5) % Eos % (Auto) 4.1 (0.7-5.8) Baso % (Auto) 1.0 (0.1-1.2) % Neut # (Auto) 1.64 (1.56-6.13) K/mm3 Lymph # (Auto) 0.56 L (1.18-3.74) K/mm3 [place] # (Auto) 0.59 H (0.24-0.36) K/mm3 Eos # (Auto) 0.12 (0.04-0.36) K/mm3 Baso # (Auto) 0.03 (0.01-0.08) K/mm3 Manual Slide Review Abnormal smear ESR (0-20) mm/hr Sodium 138 (136-145) mEq/L Potassium 4.1 (3.5-5.1) mEq/L Chloride 102 (98-107) mEq/L Carbon Dioxide 35 H (21-32) mEq/L Anion Gap 5.1 (5-15) BUN 33 H (7-18) mg/dL Creatinine 1.1 H (0.55-1.02) mg/dL Est Cr Clr Drug Dosing 25.39 mL/min Estimated GFR (MDRD) 47 (>60) mL/min BUN/Creatinine Ratio 30.0 H (14-18) Glucose 90 (83-115) mg/dL POC Glucose (83-110) mg/dL Calcium 9.1 (8.5-10.1) mg/dL Magnesium 2.1 (1.8-2.4) mg/dl C-Reactive Protein (<1.0) mg/dL NT-Pro-B Natriuret Pep 6196 H (0-450) pg/mL Rafael Results Last 24 Hours: Microbiology 06/09/20 14:20 Gram Stain - Final Sputum - Expectorated Sputum Culture - Preliminary Med Orders - Current: Current Medications Acetaminophen (Tylenol) 650 mg PO Q4H PRN PRN Reason: Pain (Mild 1-3)/fever Albuterol (Proventil Neb Soln) 2.5 mg NEB Q2H PRN PRN Reason: Shortness Of Breath/wheezing Bumetanide (Bumex) 2 mg PO DAILY [facility] Last Admin: 06/10/20 09:45 Dose: 2 mg Documented by: Calcium Carbonate (Calcium Carbonate/Vitamin D 600 Mg-200 Unit) 1 tab PO BID [facility] Last Admin: 06/10/20 09:46 Dose: 1 tab Documented by: Calcium Polycarbophil (Fibercon) 625 mg PO DAILY [facility] Last Admin: 06/10/20 09:46 Dose: 625 mg Documented by: Cyanocobalamin (Vitamin B12) 1,000 mcg PO DAILY [facility] Last Admin: 06/10/20 09:46 Dose: 1,000 mcg Documented by: Ferrous Sulfate (Ferrous Sulfate) 324 mg PO DAILY [facility] Last Admin: 06/10/20 09:46 Dose: 324 mg Documented by: Folic Acid (Folic Acid) 1 mg PO DAILY [facility] Last Admin: 06/10/20 09:46 Dose: 1 mg Documented by: Ceftriaxone Sodium 1 gm/ (Sodium Chloride) 100 mls @ 200 mls/hr IV Q24H [facility] Last Admin: 06/09/20 12:29 Dose: 200 mls/hr Documented by: Azithromycin 500 mg/ Sodium (Chloride) 250 mls @ 250 mls/hr IV Q24H [facility] Last Admin: 06/09/20 13:51 Dose: 250 mls/hr Documented by: Metolazone (Zaroxolyn) 5 mg PO WE [facility] Ondansetron HCl (Zofran Odt) 4 mg PO Q4H PRN PRN Reason: nausea, able to take PO Polyethylene Glycol (Miralax) 17 gm PO BEDTIME [facility] Last Admin: 06/09/20 23:01 Dose: 17 gm Documented by: Potassium Chloride (Klor-Con M20) 20 meq PO DAILY [facility] Last Admin: 06/10/20 09:46 Dose: 20 meq Documented by: Sertraline HCl (Zoloft) 50 mg PO DAILY [facility] Last Admin: 06/10/20 09:46 Dose: 50 mg Documented by: Sodium Chloride (Saline Flush) 10 ml FLUSH ASDIRECTED PRN PRN Reason: Keep Vein Open Last Admin: 06/08/20 18:01 Dose: 10 ml Documented by: Spironolactone (Aldactone) 25 mg PO DAILY [facility] Last Admin: 06/10/20 09:46 Dose: 25 mg Documented by: Vit A/Vit C/Vit E/Selen/Cu/Zn/Lutei (Icaps Mv) 1 tab PO BID [facility] Last Admin: 06/10/20 09:46 Dose: 1 tab Documented by: Discontinued Medications Enoxaparin Sodium (Lovenox) 40 mg SUBCUT DAILY [facility] Furosemide (Lasix) 40 mg IVPUSH NOW ONE Stop: 06/08/20 19:59 Last Admin: 06/08/20 20:16 Dose: 40 mg Documented by: Magnesium Sulfate/Dextrose 1 (gm/ Premix) 100 mls @ 100 mls/hr IV ONETIME ONE Stop: 06/09/20 11:59 Last Admin: 06/09/20 13:51 Dose: 100 mls/hr Documented by: Sodium Chloride (Normal Saline) 500 mls @ 500 mls/hr IV .BOLUS ONE Stop: 06/09/20 16:44 Last Admin: 06/09/20 17:15 Dose: 500 mls/hr Documented by: Midodrine (Midodrine) 5 mg PO NOW STA Stop: 06/09/20 15:42 Last Admin: 06/09/20 16:22 Dose: 5 mg Documented by: Non-Formulary Medication (Psyllium Husk) 2 caplet PO DAILY [facility] Potassium Chloride (Klor-Con M20) 60 meq PO ONETIME ONE Stop: 06/09/20 11:16 Last Admin: 06/09/20 12:28 Dose: 60 meq Documented by: - Exam Quality Assessment: Supplemental Oxygen (at 1 L NC) General: Alert, Oriented, Cooperative HEENT: Pupils Equal, Pupils Reactive, EOMI, Mucous Membr. Moist/[place] Neck: Supple Lungs: Normal Respiratory Effort, Decreased Breath Sounds, Crackles (at the right base) Cardiovascular: Regular Rate, Regular Rhythm, Murmurs GI/Abdominal Exam: Normal Bowel Sounds, Soft, Non-Tender, No Organomegaly, No Distention, No Abnormal Bruit (Female) Exam: Deferred Back Exam: Normal Inspection, Decreased Range of Motion Extremities: Normal Inspection, Normal Range of Motion, Non-Tender, No Pedal Edema, Normal Capillary Refill Peripheral Pulses: 2+: Dorsalis Pedis (L), Dorsalis Pedis (R) Skin: Warm, Dry, Intact Neurological: No New Focal Deficit Psy/Mental Status: Alert, Normal Affect, Normal Mood Sepsis Event Note - Evaluation Sepsis Screening Result: No Definite Risk - Focused Exam Vital Signs: Vital Signs Temp Pulse Resp BP BP Pulse Ox 06/10/20 08:00 20 107/60 100 06/10/20 07:45 36.8 C 60 107/44 L 100 06/10/20 04:36 36.9 C 54 L 22 H 110/60 98 06/10/20 01:15 36.6 C 64 21 H 107/69 98 - Problem List Review Problem List Initiated/Reviewed/Updated: Yes - My Orders Last 24 Hours: My Active Orders 06/09/20 10:50 RT Incentive Spirometry [RC] Q1HWA 06/09/20 11:09 Consult to Occupational Therapy [OT Evaluation and Treatment] [CONS] Routine PT Evaluation and Treatment [CONS] Routine 06/09/20 12:00 cefTRIAXone [Rocephin] 1 gm Sodium Chloride 0.9% [Normal Saline] 100 ml IV Q24H 06/09/20 13:00 Azithromycin [Zithromax] 500 mg Sodium Chloride 0.9% [Normal Saline (AdvBag)] 250 ml IV Q24H 06/09/20 13:56 Admission Status [Patient Status] [ADT] Routine 06/09/20 13:57 Weight Daily [Height and Weight] [RC] 0400 06/09/20 14:20 CULTURE SPUTUM + SMEAR [RM] Routine 06/09/20 15:00 Bumetanide [Bumex] 2 mg PO DAILY Sertraline [Zoloft] 50 mg PO DAILY Spironolactone [Aldactone] 25 mg PO DAILY 06/09/20 15:59 Antiembolic Devices [RC] PER UNIT ROUTINE SCD [Sequential Compression Device] [OM.PC] Routine VTE Pharmacological Contraindications [AST] Click to Edit 06/09/20 Dinner Fluid Restriction [DIET] 06/09/20 21:00 Calcium Carbonate/Vitamin D3 [Calcium Carbonate/Vitamin D 600 MG-200 Unit] 1 tab PO BID Multivitamins/Min/FA/Lut/Zeax [ICaps MV] 1 tab PO BID polyethylene glycoL 3350 [MiraLAX] 17 gm PO BEDTIME 06/10/20 09:00 Cyanocobalamin (Vitamin B12) [Vitamin B12] 1,000 mcg PO DAILY Ferrous Sulfate 324 mg PO DAILY Folic Acid 1 mg PO DAILY Potassium Chloride [Klor-Con M20] 20 meq PO DAILY calcium polycarbophiL [Fibercon] 625 mg PO DAILY 06/11/20 05:00 PRO B-TYPE NATRIUR PEPT,BNPPRO [CHEM] DAILY 06/11/20 05:11 BMP [BASIC METABOLIC PANEL,BMP] [CHEM] AM CBC WITH AUTO DIFF [HEME] AM MAGNESIUM [CHEM] AM 06/12/20 05:00 PRO B-TYPE NATRIUR PEPT,BNPPRO [CHEM] DAILY 06/12/20 05:11 BMP [BASIC METABOLIC PANEL,BMP] [CHEM] AM CBC WITH AUTO DIFF [HEME] AM MAGNESIUM [CHEM] AM 06/13/20 05:11 MAGNESIUM [CHEM] AM 06/15/20 08:30 metOLazone [Zaroxolyn] 5 mg PO WE - Assessment Assessment:: Acute: 89-year-old female who as admitted for shortness of breath and hypoxia Right sided CAP, POA Congestive heart failure with exacerbation of CHF, unknown EF Aortic stenosis Cardiomegaly Right-sided pleural effusion * Chest x-ray shows focal increased density with right lung base. Small right- sided pleural effusion appears to be present. Cardiomegaly and mild increase CHF. Repeat chest x-ray today shows persistent congestive heart failure with small right sided pleural effusion and lower lobe pneumonia * BNP of 10,116--> now 6196 * Back to baseline oxygenation after 40 mg of IV Lasix in the emergency department; on 1L NC * Home diuretics include Bumex 2 mg daily, spironolactone 50 mg p.o. daily, and metolazone 5 mg on Saturday * Shortness of breath appears improved since arrival in the emergency department * She is not currently on medication for anticoagulation because of risk for bleeding * Dr. Cleveland is her jig and fixture maker * IS as directed with bedside pulmonary exercise * heart failure regimen: bumex/metolazone, salt restriction, daily weight check, intake and output as well as 2D echo 2 months post Covid, diagnosed 04/01/2020 * Patient was symptomatic and fatigue for approximately 1 month and has done well since then * No concerns for protracted infection Macrocytic, hypochromic anemia, stable * Hemoglobin 10.6--> today 9.3 grams * MCV 98-97 * MCHC 30s * Likely anemia of chronic disease Thrombocytopenia * Platelets 128--> today 112K * No active bleeding Paroxysmal Atrial fibrillation, HR controlled * She is not currently on medication for rate control or for anticoagulation because of risk for bleeding * SCDs for stroke prophylaxis due to hx/o bleeding * Dr. Cleveland is her jig and fixture maker Hypokalemia and Hypomagnesemia * K of 3.2, today 4.1 and Mg of 1.7, today 2.1 * Likely from diuretic use * Will replete and monitor Hypoalbuminemia * Albumin of 3.1 * Tool Specialist following - Plan Plan:: Plan: 06/08/2020 * Observation on telemetry * Strict I's and O's and daily weights * No further diuresis overnight * CBC, CMP, mag in the morning * Daughter will contact her jig and fixture maker in the morning * Home meds including Bumex and spironolactone ordered for morning * FiO2 to keep SPO2 greater than 90%. * VTE prophylaxis with Lovenox * CODE STATUS: DNR/DNI * Anticipated length of stay 1 to 2 days. 06/09/2020 * Change to inpatient * Start IV rocephin and zithromycin for CAP * 2D echo to assess ejection fraction * AHA diet * Routine AM labs with inflammatory markers * IS as directed with beside pulmonary exercise * PT/OT as needed * VTE: SCDs * Code status is DNR/DNI * LOS > 95 hrs for treatment of Cap and acute congestive heart failure 06/10/2020 * Continue current treatment * Clinically she looks good * Hypotension has resolved * Continue IV rocephin and azithromycin for CAP * 2D echo to assess ejection fraction- awaiting final report * AHA diet * Routine AM labs with inflammatory markers * IS as directed with beside pulmonary exercise * PT/OT as needed * VTE: SCDs * Code status is DNR/DNI * LOS > 95 hrs for treatment of Cap and acute congestive heart failure
[2020-06-10] MEDS: Azithromycin 500 MG in Sodium Chloride 0.9% 250 ML IV SCH (13:44)
[2020-06-10] MEDS: Polyethylene Glycol 3350 Powder 17 GM Packet PO SCH (20:54)
--- NOTE | 2020-06-11 06:36 | PCM.PN ---
- General Info Date of Service: 06/11/20 Admission Dx/Problem (Free Text): Admission Diagnosis/Problem Admission Diagnosis/Problem Congestive heart failure Subjective Update: No overnight issues. She seems to be coughing up more this morning than yesterday. She remains on 1L NC at baseline. She reports no fever or chills. Her WBC went up to 3.14.her Mg is slightly low at 1.6. Functional Status: Reports: Pain Controlled, Tolerating Diet, Ambulating, Urinating. Denies: New Symptoms - Review of Systems General: Denies: Fever, Weakness, Chills Pulmonary: Reports: Cough. Denies: Shortness of Breath Cardiovascular: Denies: Chest Pain Gastrointestinal: Denies: Abdominal Pain, Nausea, Vomiting Genitourinary: Denies: Incontinence Skin: Denies: Rash Neurological: Denies: Confusion, Weakness Psychiatric: Denies: Depression, Anxiety - Patient Data Vitals - Most Recent: Last Vital Signs Temp 36.9 C 06/10/20 15:50 Pulse 102 H 06/10/20 15:50 Resp 16 06/10/20 15:50 BP 104/44 L 06/10/20 15:50 Pulse Ox 97 06/11/20 06:10 Weight - Most Recent: 48.988 kg I&O - Last 24 Hours: Intake & Output 06/10/20 06/10/20 06/11/20 14:59 22:59 06:59 Intake Total 360 950 390 Output Total 1300 550 Balance 360 -350 -160 Lab Results Last 24 Hours: Laboratory Results - last 24 hr 06/10/20 06/11/20 Range/Units 04:04 05:33 WBC 3.14 L (3.98-10.04) K/mm3 RBC 3.07 L (3.98-5.22) M/mm3 Hgb 9.2 L (11.2-15.7) gm/dl Hct 30.3 L (34.1-44.9) % MCV 98.7 H (79.4-94.8) fl MCH 30.0 (25.6-32.2) pg MCHC 30.4 L (32.2-35.5) g/dl RDW Std Deviation 51.2 H (36.4-46.3) fL Plt Count 105 L (182-369) K/mm3 MPV 10.8 (9.4-12.3) fl Neut % (Auto) 60.6 (34.0-71.1) % Lymph % (Auto) 19.4 (19.3-51.7) % [place] % (Auto) 15.6 H (4.7-12.5) % Eos % (Auto) 4.1 (0.7-5.8) Baso % (Auto) 0.3 (0.1-1.2) % Neut # (Auto) 1.90 (1.56-6.13) K/mm3 Lymph # (Auto) 0.61 L (1.18-3.74) K/mm3 [place] # (Auto) 0.49 H (0.24-0.36) K/mm3 Eos # (Auto) 0.13 (0.04-0.36) K/mm3 Baso # (Auto) 0.01 (0.01-0.08) K/mm3 Manual Slide Review Abnormal smear Rafael Results Last 24 Hours: Microbiology 06/09/20 14:20 Gram Stain - Final Sputum - Expectorated Sputum Culture - Preliminary Med Orders - Current: Current Medications Acetaminophen (Tylenol) 650 mg PO Q4H PRN PRN Reason: Pain (Mild 1-3)/fever Albuterol (Proventil Neb Soln) 2.5 mg NEB Q2H PRN PRN Reason: Shortness Of Breath/wheezing Bumetanide (Bumex) 2 mg PO DAILY [facility] Last Admin: 06/10/20 09:45 Dose: 2 mg Documented by: Calcium Carbonate (Calcium Carbonate/Vitamin D 600 Mg-200 Unit) 1 tab PO BID [facility] Last Admin: 06/10/20 20:54 Dose: 1 tab Documented by: Calcium Polycarbophil (Fibercon) 625 mg PO DAILY [facility] Last Admin: 06/10/20 09:46 Dose: 625 mg Documented by: Cyanocobalamin (Vitamin B12) 1,000 mcg PO DAILY [facility] Last Admin: 06/10/20 09:46 Dose: 1,000 mcg Documented by: Ferrous Sulfate (Ferrous Sulfate) 324 mg PO DAILY [facility] Last Admin: 06/10/20 09:46 Dose: 324 mg Documented by: Folic Acid (Folic Acid) 1 mg PO DAILY [facility] Last Admin: 06/10/20 09:46 Dose: 1 mg Documented by: Ceftriaxone Sodium 1 gm/ (Sodium Chloride) 100 mls @ 200 mls/hr IV Q24H [facility] Last Admin: 06/10/20 11:28 Dose: 200 mls/hr Documented by: Azithromycin 500 mg/ Sodium (Chloride) 250 mls @ 250 mls/hr IV Q24H [facility] Last Admin: 06/10/20 13:44 Dose: 250 mls/hr Documented by: Metolazone (Zaroxolyn) 5 mg PO WE [facility] Ondansetron HCl (Zofran Odt) 4 mg PO Q4H PRN PRN Reason: nausea, able to take PO Polyethylene Glycol (Miralax) 17 gm PO BEDTIME [facility] Last Admin: 06/10/20 20:54 Dose: 17 gm Documented by: Potassium Chloride (Klor-Con M20) 20 meq PO DAILY [facility] Last Admin: 06/10/20 09:46 Dose: 20 meq Documented by: Sertraline HCl (Zoloft) 50 mg PO DAILY [facility] Last Admin: 06/10/20 09:46 Dose: 50 mg Documented by: Sodium Chloride (Saline Flush) 10 ml FLUSH ASDIRECTED PRN PRN Reason: Keep Vein Open Last Admin: 06/08/20 18:01 Dose: 10 ml Documented by: Spironolactone (Aldactone) 25 mg PO DAILY [facility] Last Admin: 06/10/20 09:46 Dose: 25 mg Documented by: Vit A/Vit C/Vit E/Selen/Cu/Zn/Lutei (Icaps Mv) 1 tab PO BID [facility] Last Admin: 06/10/20 20:54 Dose: 1 tab Documented by: Discontinued Medications Enoxaparin Sodium (Lovenox) 40 mg SUBCUT DAILY [facility] Furosemide (Lasix) 40 mg IVPUSH NOW ONE Stop: 06/08/20 19:59 Last Admin: 06/08/20 20:16 Dose: 40 mg Documented by: Magnesium Sulfate/Dextrose 1 (gm/ Premix) 100 mls @ 100 mls/hr IV ONETIME ONE Stop: 06/09/20 11:59 Last Admin: 06/09/20 13:51 Dose: 100 mls/hr Documented by: Sodium Chloride (Normal Saline) 500 mls @ 500 mls/hr IV .BOLUS ONE Stop: 06/09/20 16:44 Last Admin: 06/09/20 17:15 Dose: 500 mls/hr Documented by: Midodrine (Midodrine) 5 mg PO NOW [facility] Stop: 06/09/20 15:42 Last Admin: 06/09/20 16:22 Dose: 5 mg Documented by: Non-Formulary Medication (Psyllium Husk) 2 caplet PO DAILY [facility] Potassium Chloride (Klor-Con M20) 60 meq PO ONETIME ONE Stop: 06/09/20 11:16 Last Admin: 06/09/20 12:28 Dose: 60 meq Documented by: - Exam Quality Assessment: Supplemental Oxygen General: Alert, Oriented, Cooperative, No Acute Distress HEENT: Pupils Equal, Pupils Reactive, EOMI, Mucous Membr. Moist/[place] Neck: Supple Lungs: Normal Respiratory Effort, Decreased Breath Sounds, Crackles (on the right base) Cardiovascular: Regular Rate, Regular Rhythm, Murmurs GI/Abdominal Exam: Normal Bowel Sounds, Soft, Non-Tender, No Organomegaly, No Distention, No Abnormal Bruit (Female) Exam: Deferred Back Exam: Normal Inspection, Decreased Range of Motion Extremities: Normal Inspection, Normal Range of Motion, Non-Tender, No Pedal Edema, Normal Capillary Refill, Pedal Edema, Other (naricose veins on both legs) Peripheral Pulses: 2+: Dorsalis Pedis (L), Dorsalis Pedis (R) Skin: Warm, Dry, Intact Neurological: No New Focal Deficit, Normal Gait Psy/Mental Status: Alert, Normal Affect, Normal Mood Sepsis Event Note - Evaluation Sepsis Screening Result: No Definite Risk - Focused Exam Vital Signs: Vital Signs Pulse Ox 06/11/20 06:10 97 - Problem List Review Problem List Initiated/Reviewed/Updated: Yes - My Orders Last 24 Hours: My Active Orders 06/10/20 09:00 Cyanocobalamin (Vitamin B12) [Vitamin B12] 1,000 mcg PO DAILY Ferrous Sulfate 324 mg PO DAILY Folic Acid 1 mg PO DAILY Potassium Chloride [Klor-Con M20] 20 meq PO DAILY calcium polycarbophiL [Fibercon] 625 mg PO DAILY 06/11/20 05:33 BMP [BASIC METABOLIC PANEL,BMP] [CHEM] AM CBC WITH AUTO DIFF [HEME] AM MAGNESIUM [CHEM] AM PRO B-TYPE NATRIUR PEPT,BNPPRO [CHEM] DAILY 06/12/20 05:00 PRO B-TYPE NATRIUR PEPT,BNPPRO [CHEM] DAILY 06/12/20 05:11 BMP [BASIC METABOLIC PANEL,BMP] [CHEM] AM CBC WITH AUTO DIFF [HEME] AM MAGNESIUM [CHEM] AM 06/13/20 05:11 MAGNESIUM [CHEM] AM 06/15/20 08:30 metOLazone [Zaroxolyn] 5 mg PO WE - Assessment Assessment:: Acute: 89-year-old female who as admitted for shortness of breath and hypoxia Right sided CAP, POA Congestive heart failure with exacerbation of CHF, unknown EF Mod-Severe Aortic stenosis Severe Mitral Regurgitation Moderate Tricuspid Regurgitation Severe Bi-atrial Dilatation Severe Pulmonary Arterial Hypertension with 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 Small right- sided pleural effusion appears to be present. Cardiomegaly and mild increase CHF. Repeat chest x-ray today shows persistent congestive heart failure with small right sided pleural effusion and lower lobe pneumonia * BNP of 10,116--> now 7236 * Back to baseline oxygenation after 40 mg of IV Lasix in the emergency department; on 1L NC * Home diuretics include Bumex 2 mg daily, spironolactone 50 mg p.o. daily, and metolazone 5 mg on Saturday * Shortness of breath appears improved since arrival in the emergency department * She is not currently on medication for anticoagulation because of risk for bleeding * Dr. Cleveland is her nutritional services director * IS as directed with bedside pulmonary exercise * Change fluid restriction to 1.8L a day * Heart failure regimen: bumex/metolazone, salt restriction, daily weight check, intake and output as well as 2D echo * 2D echo: EF of 50-55%. Mod-Severe Aortic Stenosis. Severe Mitral Regurgitation. Moderate Tricuspid Regurgitation. Severe Bi-atrial Dilatation. And RVSP at 85.9 mmHg 2 months post Covid, diagnosed 04/01/2020 * Patient was symptomatic and fatigue for approximately 1 month and has done well since then * No concerns for protracted infection Macrocytic, hypochromic anemia, stable * Hemoglobin 10.6--> today 9.2 grams * MCV 98-97 * MCHC 30s * Likely anemia of chronic disease Thrombocytopenia * Platelets 128--> today 105K * No active bleeding Paroxysmal Atrial fibrillation, HR controlled * She is not currently on medication for rate control or for anticoagulation because of risk for bleeding * SCDs for stroke prophylaxis due to hx/o bleeding * Dr. Cleveland is her nutritional services director Hypokalemia and Hypomagnesemia * K of 3.2, today 3.8 and Mg of 1.7, today1.6 * Likely from diuretic use * Will replete and monitor Hypoalbuminemia * Albumin of 3.1 * Demo Coordinator following - Plan Plan:: Plan: 06/08/2020 * Observation on telemetry * Strict I's and O's and daily weights * No further diuresis overnight * CBC, CMP, mag in the morning * Daughter will contact her nutritional services director in the morning * Home meds including Bumex and spironolactone ordered for morning * FiO2 to keep SPO2 greater than 90%. * VTE prophylaxis with Lovenox * CODE STATUS: DNR/DNI * Anticipated length of stay 1 to 2 days. 06/09/2020 * Change to inpatient * Start IV rocephin and zithromycin for CAP * 2D echo to assess ejection fraction * AHA diet * Routine AM labs with inflammatory markers * IS as directed with beside pulmonary exercise * PT/OT as needed * VTE: SCDs * Code status is DNR/DNI * LOS > 95 hrs for treatment of Cap and acute congestive heart failure 06/10/2020 * Continue current treatment * Clinically she looks good * Hypotension has resolved * Continue IV rocephin and azithromycin for CAP * 2D echo to assess ejection fraction- awaiting final report * AHA diet * Routine AM labs with inflammatory markers * IS as directed with beside pulmonary exercise * PT/OT as needed * VTE: SCDs * Code status is DNR/DNI * LOS > 95 hrs for treatment of Cap and acute congestive heart failure 06/11/2020 * Continue current treatment * She remain stable * Continue IV rocephin and azithromycin for CAP * AHA diet and fluid restriction of 1.8L/day * Routine AM labs with inflammatory markers * Went over 2D echo report with patient * PRN decongestant/expectorant with patient * IS as directed with beside pulmonary exercise * Flutter valve for decongestant * PT/OT as needed * VTE: SCDs * Code status is DNR/DNI * LOS > 95 hrs for treatment of Cap and acute congestive heart failure
[2020-06-11] MEDS: Cyanocobalamin (Vitamin B12) 1,000 MCG Tab PO SCH (09:01)
[2020-06-11] MEDS: Ferrous Sulfate 324 MG Tab.EC PO SCH (09:01)
[2020-06-11] MEDS: Calcium Polycarbophil 625 MG Tab PO SCH (09:01)
[2020-06-11] MEDS: Spironolactone 25 MG Tab PO SCH (09:01)
[2020-06-11] MEDS: Multivitamins with Minerals/Folic Acid/Lutein/Zeaxanth Tab PO SCH ×2 (09:01→20:22)
[2020-06-11] MEDS: Folic Acid 1 MG Tab PO SCH (09:01)
[2020-06-11] MEDS: Calcium Carbonate/Vitamin D3 600 MG-200 Units Tab PO SCH ×2 (09:01→20:22)
[2020-06-11] MEDS: Potassium Chloride 20 MEQ Tab.ER PO SCH (09:02)
[2020-06-11] MEDS: Sertraline 50 MG Tab PO SCH (09:03)
[2020-06-11] MEDS: Bumetanide 1 MG Tab PO SCH (09:08)
[2020-06-11] MEDS ORDERED: guaiFENesin/Dextromethorphan 100-10 MG/5 ML Soln 5 ML Cup PO PRN (09:37)
[2020-06-11] MEDS: cefTRIAXone 1 GM in Sodium Chloride 0.9% 100 ML IV SCH (11:56)
[2020-06-11] MEDS: Azithromycin 500 MG in Sodium Chloride 0.9% 250 ML IV SCH (13:43)
[2020-06-11] MEDS: Polyethylene Glycol 3350 Powder 17 GM Packet PO SCH (20:22)
[2020-06-12 08:25] VITALS: BP 112/79; PULSE 76
[2020-06-12] MEDS: Folic Acid 1 MG Tab PO SCH (08:56)
[2020-06-12] MEDS: Ferrous Sulfate 324 MG Tab.EC PO SCH (08:56)
[2020-06-12] MEDS: Calcium Carbonate/Vitamin D3 600 MG-200 Units Tab PO SCH (08:56)
[2020-06-12] MEDS: Cyanocobalamin (Vitamin B12) 1,000 MCG Tab PO SCH (08:56)
[2020-06-12] MEDS: Multivitamins with Minerals/Folic Acid/Lutein/Zeaxanth Tab PO SCH (08:56)
[2020-06-12] MEDS: Spironolactone 25 MG Tab PO SCH (08:57)
[2020-06-12] MEDS: Calcium Polycarbophil 625 MG Tab PO SCH (08:57)
[2020-06-12] MEDS: Sertraline 50 MG Tab PO SCH (08:57)
[2020-06-12] MEDS: Bumetanide 1 MG Tab PO SCH (08:59)
[2020-06-12] MEDS ORDERED: Potassium Chloride 20 MEQ Tab.ER PO SCH (09:00)
[2020-06-12] MEDS: cefTRIAXone 1 GM in Sodium Chloride 0.9% 100 ML IV SCH (11:30)
--- NOTE | 2020-06-12 12:01 | PCM.DCSUM1 ---
Discharge Summary - Hospital Course Brief History: This is an 89 yo elderly white female with past medical hx/o Impaired Vision, HTN, HLD, PAFIB, Cardiomyopahty, Heart Murmurs, Aortic Stenosis, Mitral and Tricuspid Valve Regurgitations, Pulmonary HTN, Doudenal Ulcers, OA, Osteopenia, Hx/o Bleeding with Anticogulants, Intolerance to Antocoagulation, and Anxiety who presented with complaints of shortness of breath and was admitted for congestive heart failure and community acquired pneumonia. Diagnosis: Stroke: No Modified [place] Scale: No Symptoms at All Modified [place] Scale Score: 0 - Discharge Data Discharge Date: 06/12/20 Discharge Disposition: Home, Self-Care 01 Condition: Good - Referral to Home Health Primary Care Physician: Abigail Gunderson NP - Patient Summary/Data Operative Procedure(s) Performed: None Complications: None Consults: Consultations 06/09/20 11:09 Consult to Occupational Therapy [OT Evaluation and Treatment] [CONS] Routine PT Evaluation and Treatment [CONS] Routine Hospital Course: Patient was admitted primary for acute on congestive heart failure. CXR revealed pulmonary vascular congestion as well as right sided pleural effusion. She was put on heart failure treatment and slowly improved on this regimen. Her pleural effusion was small and therefore no invasive procedure was offered. However her x-ray did show right lower lobe pneumonia. She received intravenous antibiotics for treatment. She completed a 4 day course of azithromycin and rocephin. Sputum culture came back pos for haemophilus parainfluenzae II. Her 2D echo revealed adequate ejection fraction with multiple valvular insufficiency but no vegetations or endocarditis. Her recent proBNP was 7,236 which was lesser than 10,116 on admission. Her weight was a lot less prior to discharge. Her hospital course was uncomplicated. We stressed the importance of medical and dietary compliance. She will continue with her home heart failure regimen and provided instructions on what to do in any event that she will have recurrent acute heart failure symptoms. She was informed to continue to use her incentive spirometry and flutter valve as directed. She will have one more day of antibiotic to be taken orally to complete a total of 5 day course of pneumonia treatment. She was advised to continue her routine home activities as tolerated and was further advised to come back or seek immediate care at the nearest medical center if her symptom persists or gets worse. - Patient Instructions Diet: Heart Healthy Diet, Low Sodium, Fluid Restriction Fluid Restriction: 2000 mL Activity: As Tolerated Driving: Do Not Drive Showering/Bathing: May Shower Notify Provider of: Fever, Increased Pain, Swelling and Redness, Drainage, Nausea and/or Vomiting Other/Special Instructions: - Take Levaquin 750 mg po daily tomorrow to complete your pneumonia treatment. - Use incentive spirometer and flutter valve as directed. -Follow intructions provided at bedside for sudden shortness of breath or increased edema. -Follow daily salt and fluid restrictions as well as routine weight check. -Take 2 tabs of bumex except Saturday for sudden shortness of breath or increased edema. -Do not take your bumex, metolazone and aldactone if you are having nausea/vomiting/diarrhea or upset stomach. -Come back or seek immediate care at [facility] if your symptoms persist or get worse - Discharge Plan *PRESCRIPTION DRUG MONITORING PROGRAM REVIEWED*: Not Applicable *COPY OF PRESCRIPTION DRUG MONITORING REPORT IN PATIENT HODAN: Not Applicable Prescriptions/Med Rec: levoFLOXacin [Levaquin] 750 mg PO DAILY #1 tab Home Medications: Home Meds Cyanocobalamin (Vitamin B12) [Vitamin B12] 1,000 mcg PO DAILY 07/20/16 [History] Spironolactone [Aldactone] 25 mg PO DAILY 07/20/16 [History] Potassium Chloride 20 meq PO DAILY 08/05/17 [History] Folic Acid 1 mg PO DAILY 01/29/19 [History] Sertraline [Zoloft] 50 mg PO DAILY 01/29/19 [History] Calcium Carbonate/Vitamin D3 [Caltrate 600 Plus D3 Tablet] 1 tab PO BID 06/08/20 [History] Ferrous Sulfate 325 mg PO DAILY 06/08/20 [History] Psyllium Husk [Psyllium Fiber] 2 caplet PO DAILY 06/08/20 [History] Vit C/E/Zn/Coppr/Lutein/Zeaxan [Preservision Areds 2 Softgel] 1 each PO BID 06/08/20 [History] polyethylene glycoL 3350 [MiraLAX] 17 gm PO BEDTIME 06/08/20 [History] Bumetanide [Bumex] 1 mg PO ASDIRECTED #60 06/12/20 [Rx] levoFLOXacin [Levaquin] 750 mg PO DAILY #1 tab 06/12/20 [Rx] metOLazone [Metolazone] 5 mg PO WE #30 06/12/20 [Rx] Oxygen Therapy Mode: Nasal Cannula (1-2) Oxygen Flow Rate (L/min): 1 Maintain SpO2% greater than: 92 Patient Handouts: Heart Failure Action Plan, Pleural Effusion, Community- Acquired Pneumonia, Adult, [id number] Referrals: Abigail Gunderson, JOGGER OPERATOR [Primary Care Provider] - (Please schedule a hospital follow up with Abigail Gunderson NP within the next 7-10 days.) - Discharge Summary/Plan Comment DC Time >30 min.: No Discharge Summary/Plan Comment: Discharge to Home - General Info Date of Service: 06/12/20 Admission Dx/Problem (Free Text: Admission Diagnosis/Problem Admission Diagnosis/Problem Congestive heart failure Subjective Update: No overnight issues. She seems to be coughing up more this morning than yesterday. She remains on 1L NC at baseline. She reports no fever or chills. Her WBC went up to 3.14.her Mg is slightly low at 1.6. Functional Status: Reports: Pain Controlled - Review of Systems General: Denies: Fever, Chills HEENT: Denies: Contact Lenses Pulmonary: Denies: Shortness of Breath, Cough, Sputum Cardiovascular: Denies: Chest Pain Gastrointestinal: Denies: Abdominal Pain, Nausea, Vomiting Genitourinary: Reports: Frequency Musculoskeletal: Denies: Joint Pain Skin: Denies: Rash Neurological: Denies: Dizziness, Weakness Psychiatric: Denies: Confusion, Depression, Anxiety - Patient Data Vitals - Most Recent: Last Vital Signs Temp 36.9 C 06/12/20 08:12 Pulse 76 06/12/20 08:10 Resp 16 06/12/20 08:10 BP 112/79 06/12/20 08:10 Pulse Ox 98 06/12/20 08:10 Weight - Most Recent: 51.528 kg I&O - Last 24 hours: Intake & Output 06/11/20 06/12/20 06/12/20 22:59 06:59 14:59 Intake Total 940 414 120 Output Total 2000 651 Balance -1060 -237 120 Lab Results - Last 24 hrs: Laboratory Results - last 24 hr 06/12/20 06/12/20 Range/Units 05:08 05:08 WBC 3.02 L (3.98-10.04) K/mm3 RBC 3.25 L (3.98-5.22) M/mm3 Hgb 9.8 L (11.2-15.7) gm/dl Hct 31.8 L (34.1-44.9) % MCV 97.8 H (79.4-94.8) fl MCH 30.2 (25.6-32.2) pg MCHC 30.8 L (32.2-35.5) g/dl RDW Std Deviation 50.3 H (36.4-46.3) fL Plt Count 104 L (182-369) K/mm3 MPV 11.3 (9.4-12.3) fl Neut % (Auto) 52.6 (34.0-71.1) % Lymph % (Auto) 21.9 (19.3-51.7) % [place] % (Auto) 19.9 H (4.7-12.5) % Eos % (Auto) 4.6 (0.7-5.8) Baso % (Auto) 0.7 (0.1-1.2) % Neut # (Auto) 1.59 (1.56-6.13) K/mm3 Lymph # (Auto) 0.66 L (1.18-3.74) K/mm3 [place] # (Auto) 0.60 H (0.24-0.36) K/mm3 Eos # (Auto) 0.14 (0.04-0.36) K/mm3 Baso # (Auto) 0.02 (0.01-0.08) K/mm3 Manual Slide Review Abnormal smear Sodium 142 (136-145) mEq/L Potassium 3.6 (3.5-5.1) mEq/L Chloride 102 (98-107) mEq/L Carbon Dioxide 36 H (21-32) mEq/L Anion Gap 7.6 (5-15) BUN 32 H (7-18) mg/dL Creatinine 0.7 (0.55-1.02) mg/dL Est Cr Clr Drug Dosing 39.90 mL/min Estimated GFR (MDRD) > 60 (>60) mL/min BUN/Creatinine Ratio 45.7 H (14-18) Glucose 84 (83-115) mg/dL Calcium 9.7 (8.5-10.1) mg/dL Magnesium 1.7 L (1.8-2.4) mg/dl GIANCARLO Results - Last 24 hrs: Microbiology 06/09/20 14:20 Gram Stain - Final Sputum - Expectorated Sputum Culture - Preliminary Haemophilus Parainfluenzae Ii Med Orders - Current: Current Medications Acetaminophen (Tylenol) 650 mg PO Q4H PRN PRN Reason: Pain (Mild 1-3)/fever Albuterol (Proventil Neb Soln) 2.5 mg NEB Q2H PRN PRN Reason: Shortness Of Breath/wheezing Bumetanide (Bumex) 2 mg PO DAILY [facility] Last Admin: 06/12/20 08:59 Dose: 2 mg Documented by: Calcium Carbonate (Calcium Carbonate/Vitamin D 600 Mg-200 Unit) 1 tab PO BID [facility] Last Admin: 06/12/20 08:56 Dose: 1 tab Documented by: Calcium Polycarbophil (Fibercon) 625 mg PO DAILY [facility] Last Admin: 06/12/20 08:57 Dose: 625 mg Documented by: Cyanocobalamin (Vitamin B12) 1,000 mcg PO DAILY [facility] Last Admin: 06/12/20 08:56 Dose: 1,000 mcg Documented by: Ferrous Sulfate (Ferrous Sulfate) 324 mg PO DAILY [facility] Last Admin: 06/12/20 08:56 Dose: 324 mg Documented by: Folic Acid (Folic Acid) 1 mg PO DAILY [facility] Last Admin: 06/12/20 08:56 Dose: 1 mg Documented by: Guaifenesin/Phenylephrine HCl (Robitussin Dm) 5 ml PO Q4H PRN PRN Reason: Cough Last Admin: 06/11/20 10:43 Dose: 5 ml Documented by: Ceftriaxone Sodium 1 gm/ (Sodium Chloride) 100 mls @ 200 mls/hr IV Q24H [facility] Last Admin: 06/12/20 11:30 Dose: 200 mls/hr Documented by: Azithromycin 500 mg/ Sodium (Chloride) 250 mls @ 250 mls/hr IV Q24H [facility] Last Admin: 06/11/20 13:43 Dose: 250 mls/hr Documented by: Magnesium Sulfate/Dextrose 1 (gm/ Premix) 100 mls @ 100 mls/hr IV Q1H [facility] Stop: 06/12/20 13:14 Metolazone (Zaroxolyn) 5 mg PO WE [facility] Ondansetron HCl (Zofran Odt) 4 mg PO Q4H PRN PRN Reason: nausea, able to take PO Polyethylene Glycol (Miralax) 17 gm PO BEDTIME [facility] Last Admin: 06/11/20 20:22 Dose: 17 gm Documented by: Potassium Chloride (Klor-Con M20) 40 meq PO DAILY [facility] Last Admin: 06/12/20 08:55 Dose: 40 meq Documented by: Sertraline HCl (Zoloft) 50 mg PO DAILY [facility] Last Admin: 06/12/20 08:57 Dose: 50 mg Documented by: Sodium Chloride (Saline Flush) 10 ml FLUSH ASDIRECTED PRN PRN Reason: Keep Vein Open Last Admin: 06/08/20 18:01 Dose: 10 ml Documented by: Spironolactone (Aldactone) 25 mg PO DAILY [facility] Last Admin: 06/12/20 08:57 Dose: 25 mg Documented by: Vit A/Vit C/Vit E/Selen/Cu/Zn/Lutei (Icaps Mv) 1 tab PO BID [facility] Last Admin: 06/12/20 08:56 Dose: 1 tab Documented by: Discontinued Medications Enoxaparin Sodium (Lovenox) 40 mg SUBCUT DAILY [facility] Furosemide (Lasix) 40 mg IVPUSH NOW ONE Stop: 06/08/20 19:59 Last Admin: 06/08/20 20:16 Dose: 40 mg Documented by: Magnesium Sulfate/Dextrose 1 (gm/ Premix) 100 mls @ 100 mls/hr IV ONETIME ONE Stop: 06/09/20 11:59 Last Admin: 06/09/20 13:51 Dose: 100 mls/hr Documented by: Sodium Chloride (Normal Saline) 500 mls @ 500 mls/hr IV .BOLUS ONE Stop: 06/09/20 16:44 Last Admin: 06/09/20 17:15 Dose: 500 mls/hr Documented by: Magnesium Sulfate/Dextrose 1 (gm/ Premix) 100 mls @ 100 mls/hr IV ONETIME ONE Stop: 06/11/20 10:15 Last Admin: 06/11/20 10:36 Dose: 100 mls/hr Documented by: Midodrine (Midodrine) 5 mg PO NOW [facility] Stop: 06/09/20 15:42 Last Admin: 06/09/20 16:22 Dose: 5 mg Documented by: Non-Formulary Medication (Psyllium Husk) 2 caplet PO DAILY [facility] Potassium Chloride (Klor-Con M20) 60 meq PO ONETIME ONE Stop: 06/09/20 11:16 Last Admin: 06/09/20 12:28 Dose: 60 meq Documented by: Potassium Chloride (Klor-Con M20) 20 meq PO DAILY [facility] Last Admin: 06/11/20 09:02 Dose: 20 meq Documented by: - Exam Quality Assessment: Reports: Supplemental Oxygen (at baseline) General: Reports: Alert, Oriented, Cooperative, No Acute Distress HEENT: Reports: Pupils Equal, Pupils Reactive, EOMI, Mucous Membr. Moist/[place] Neck: Reports: Supple Lungs: Reports: Normal Respiratory Effort, Decreased Breath Sounds, Crackles (at the right base) Cardiovascular: Reports: Regular Rate, Regular Rhythm, Murmurs GI/Abdominal Exam: Normal Bowel Sounds, Soft, Non-Tender, No Organomegaly, No Distention, No Abnormal Bruit (Female) Exam: Deferred Rectal (Female) Exam: Deferred Back Exam: Reports: Normal Inspection, Decreased Range of Motion Extremities: Normal Inspection, Normal Range of Motion, Non-Tender, No Pedal Edema, Normal Capillary Refill, Other (varicose veins on both legs) Skin: Reports: Warm, Dry, Intact Neurological: Reports: No New Focal Deficit Psy/Mental Status: Reports: Alert, Normal Affect, Normal Mood *Q Meaningful Use (DIS) - VTE *Q VTE Pharmacological Contraindications *Q: Risk of Bleeding
[2020-06-12] MEDS: Azithromycin 500 MG in Sodium Chloride 0.9% 250 ML IV SCH (12:20)
[2020-06-15] MEDS ORDERED: Metolazone 5 MG Tab PO SCH (08:30)
== END 2020-06-12 15:15 | disposition home or self-care (01) | DRG 291 ==
LOC: JD.ED 16:22 → JD.MS 20:42 → OBSVTOIN 06-09 13:56
PROVIDERS: ADMIT Family Medicine; ATTEND Family Medicine
DX: R53.1 Weakness (principal); I50.33 Acute on chronic diastolic (congestive) heart failure; R06.00 Dyspnea, unspecified; I48.20 Chronic atrial fibrillation, unspecified; J18.9 Pneumonia, unspecified organism; D69.0 Allergic purpura; J91.8 Pleural effusion in other conditions classified elsewhere; I42.9 Cardiomyopathy, unspecified; I11.0 Hypertensive heart disease with heart failure; H54.7 Unspecified visual loss; E78.5 Hyperlipidemia, unspecified; Z66 Do not resuscitate; I48.0 Paroxysmal atrial fibrillation; I27.20 Pulmonary hypertension, unspecified; M19.90 Unspecified osteoarthritis, unspecified site; M85.80 Other specified disorders of bone density and structure, unspecified site; Z79.01 Long term (current) use of anticoagulants; F41.9 Anxiety disorder, unspecified; Z79.899 Other long term (current) drug therapy; E78.00 Pure hypercholesterolemia, unspecified; I48.91 Unspecified atrial fibrillation; Z98.49 Cataract extraction status, unspecified eye; Z98.890 Other specified postprocedural states; Z87.891 Personal history of nicotine dependence; Z88.8 Allergy status to other drugs, medicaments and biological substances; I27.21 Secondary pulmonary arterial hypertension; D69.6 Thrombocytopenia, unspecified; E88.09 Other disorders of plasma-protein metabolism, not elsewhere classified; I08.3 Combined rheumatic disorders of mitral, aortic and tricuspid valves
CPT/HCPCS: 36415 ×2; 36600; 71045; 80053 ×2; 82728; 82803; 83615; 83735; 83880; 84484 ×2; 85025 ×2; 85610; 85652; 85730; 86140 ×2; 87077; 93005; 93306; 96365; 96375; 97110; 97162; 99285; A9270; G0378 ×3; J0456; J0696; J1940; J3475; J7050 ×2; 80048; 82962; 87070; 87184; 87205; 93010; 94667; 94760; 94761; 96374; 97165-GO; 99284; J7040

== ENCOUNTER 2020-10-19 13:39 | Emergency (ER) | payer MEDICARE, SELFPAY ==
[2020-10-19 13:51] VITALS: BP 139/90; PULSE 82
--- NOTE | 2020-10-19 14:21 | EDM.PDOC ---
ED HPI GENERAL MEDICAL PROBLEM - General Chief Complaint: Chest Pain Stated Complaint: CHEST PAIN Time Seen by Provider: 10/19/20 13:48 Source of Information: Reports: Patient History Limitations: Reports: No Limitations, Other (Vital signs reveal a temp of 97.8, pulse of 82, respiratory rate of 20, blood pressure 139/90, pulse ox is 92% on room air.) - History of Present Illness INITIAL COMMENTS - FREE TEXT/NARRATIVE: 89-year-old female presents the emergency department today with complaints of chest pain that started about 45 minutes prior to the arrival. The patient sta cherie she was sitting at the table putting a puzzle together when she developed a stabbing pain to her midsternal area that radiated to her back. She states the pain lasted about a minute and a half and then resolved. She states this caused her to feel flushed. She denies any palpitations, shortness of breath, or nausea associated with the chest pain. She denies any radiation of the chest pain into her jaw neck or shoulder. She states she has never had this happen before and has no history of heart attack. Of note, the patient does have chronic atrial fibrillation for which she does not take any anticoagulants. She states that when she was on anticoagulations in the past, she was "bleeding out of every orifice" so they stopped them. The patient does have a significant history of congestive heart failure as well. She states she does take a diuretic which causes her to void. Still waiting on a current updated med list for the patient. She states she has weighed herself daily and has not noted any weight gain however she states that she feels today is the first day that her feet and ankles have been swollen in quite some time. The patient denies any complaints of recent fever, chills, nausea, vomiting, diarrhea, or constipation. She denies any issues with GERD. She denies any urinary symptoms. Of note, the patient sees Dr. Sosa for diagnosis of pancytopenia. Her primary care provider is Demetria Hobson. And her alumni relations officer is Dr. Zaragoza. - Related Data Allergies Allergy/AdvReac Type Severity Reaction Status Date / Time digoxin Allergy Cannot Verified 06/08/20 16:44 Remember prochlorperazine AdvReac Nausea and Verified 06/08/20 16:44 Vomiting tramadol AdvReac Nausea and Verified 06/08/20 16:44 Vomiting Home Meds: Home Meds Cyanocobalamin (Vitamin B12) [Vitamin B12] 1,000 mcg PO DAILY 07/20/16 [History] Spironolactone [Aldactone] 25 mg PO DAILY 07/20/16 [History] Potassium Chloride 20 meq PO DAILY 08/05/17 [History] Folic Acid 1 mg PO DAILY 01/29/19 [History] Sertraline [Zoloft] 50 mg PO DAILY 01/29/19 [History] Calcium Carbonate/Vitamin D3 [Caltrate 600 Plus D3 Tablet] 1 tab PO BID 06/08/20 [History] Ferrous Sulfate 325 mg PO DAILY 06/08/20 [History] Psyllium Husk [Psyllium Fiber] 2 caplet PO DAILY 06/08/20 [History] Vit C/E/Zn/Coppr/Lutein/Zeaxan [Preservision Areds 2 Softgel] 1 each PO BID 06/08/20 [History] polyethylene glycoL 3350 [MiraLAX] 17 gm PO BEDTIME 06/08/20 [History] Bumetanide [Bumex] 1 mg PO ASDIRECTED #60 06/12/20 [Rx] levoFLOXacin [Levaquin] 750 mg PO DAILY #1 tab 06/12/20 [Rx] metOLazone [Metolazone] 5 mg PO WE #30 06/12/20 [Rx] Past Medical History HEENT History: Reports: Cataract, Hard of Hearing, Impaired Vision, Other (See Below) Other HEENT History: Wears glasses, bilat hearing aids, and upper and lower dentures Cardiovascular History: Reports: Afib, Cardiomyopathy, Heart Murmur, High Cholesterol, Hypertension, Other (See Below) Other Cardiovascular History: Aortic stenosis, Mitral regurgitation, tricuspid regurgitation, valvular cardiomyopathy Respiratory History: Reports: Other (See Below) Other Respiratory History: Pulmonary HTN Gastrointestinal History: Reports: Other (See Below) Other Gastrointestinal History: duedenol ulcer, diverticulii Genitourinary History: Reports: None [employer] History: Reports: Musculoskeletal History: Reports: Arthritis Neurological History: Reports: None Psychiatric History: Reports: Anxiety Endocrine/Metabolic History: Reports: Osteopenia Hematologic History: Reports: None Other Hematologic History: antiphospholipid blood disorder... only has bleeding issues when on thinners Immunologic History: Reports: None Oncologic (Cancer) History: Reports: None Dermatologic History: Reports: None - Infectious Disease History Infectious Disease History: Reports: Chicken Pox, Measles - Past Surgical History Head Surgeries/Procedures: Reports: None HEENT Surgical History: Reports: Cataract Surgery, Oral Surgery Respiratory Surgical History: Reports: None GI Surgical History: Reports: None Female Surgical History: Reports: Hysterectomy Endocrine Surgical History: Reports: None Neurological Surgical History: Reports: None Musculoskeletal Surgical History: Reports: None Oncologic Surgical History: Reports: None Dermatological Surgical History: Reports: None Social & Family History - Family History Family Medical History: No Pertinent Family History Cardiac: Reports: [place], Other (See Below) - Caffeine Use Caffeine Use: Reports: Coffee Other Caffeine Use: decaf - Living Situation & Occupation Living situation: Reports: Occupation: Retired ED ROS GENERAL - Review of Systems Review Of Systems: Comprehensive ROS is negative, except as noted in HPI. ED EXAM, GENERAL - Physical Exam Exam: See Below Exam Limited By: No Limitations General Appearance: Alert, WD/WN, No Apparent Distress Ears: Normal External Exam. No: Hearing Grossly Normal (Wears bilateral hearing aids) Nose: Normal Inspection Throat/Mouth: Normal Inspection, Normal Lips, Normal Voice, No Airway Compromise Head: Atraumatic Neck: Normal Inspection, Supple Respiratory/Chest: No Respiratory Distress, No Accessory Muscle Use, Chest Non-Tender, Crackles (Fine crackles noted bilaterally). No: Lungs Clear, Normal Breath Sounds Cardiovascular: Normal Peripheral Pulses, Systolic Murmur (Grade 3), Irregularly Irregular. No: Regular Rate, Rhythm, No Edema (Trace of pedal edema to bilateral lower extremities), No Murmur Peripheral Pulses: 2+: Radial (L), Radial (R) GI/Abdominal: Normal Bowel Sounds, Soft, Non-Tender, No Distention (Female) Exam: Deferred Rectal (Female) Exam: Deferred Back Exam: Normal Inspection Extremities: Normal Inspection, Non-Tender, Normal Capillary Refill, Pedal Edema (Trace of pedal edema to bilateral lower extremities). No: Normal Range of Motion (Right rotator cuff is absent) Neurological: Alert, Oriented, Normal Cognition Psychiatric: Normal Affect, Normal Mood Skin Exam: Warm, Dry, Intact, Normal Color Lymphatic: No Adenopathy #1 Interpretation EKG Date: 10/19/20 Time: 13:49 Rhythm: A-Fib Rate (Beats/Min): 74 P-Wave: Absent QRS: Normal ST-T: Normal QT: Normal EKG Interpretation Comments: Per Dr. Pathak interpretation: afib at 74; single PVC; no Q changes other than V1; no acute ST-T changes Course - Vital Signs Text/Narrative:: 89-year-old female with a history of atrial fibrillation not currently taking any anticoagulants, congestive heart failure, pancytopenia and renal failure. Developed chest pain this afternoon that lasted approximately a minute and a half while she was putting a puzzle together sitting at the table. She describes it as a sharp stabbing pain that radiated through to her back. She denies any palpitations, radiation of the chest pain, shortness of breath, dizziness, or nausea. Denies any radiation of the chest pain to her jaw or shoulder. Has not been recently ill with fever chills or urinary symptoms. At the time of my assessment, the patient no longer has chest pain as previously stated only lasted about a minute and a half. I have ordered labs, EKG, and a chest x-ray on this patient. Last Recorded V/S: Last Vital Signs Temp 97.8 F 10/19/20 13:45 Pulse 82 10/19/20 13:45 Resp 20 10/19/20 13:45 BP 139/90 10/19/20 13:45 Pulse Ox - Orders/Labs/Meds Orders: Active Orders 24 hr Category Date Time Status EKG Documentation Completion [RC] ASDIRECTED Care 10/19/20 13:50 Active EKG 12 Lead [EK] Stat Ther 10/19/20 13:50 Ordered Labs: Laboratory Tests 10/19/20 10/19/20 10/19/20 Range/Units 14:12 14:12 14:12 WBC 4.15 (3.98-10.04) K/mm3 RBC 3.49 L (3.98-5.22) M/mm3 Hgb 10.6 L (11.2-15.7) gm/dl Hct 34.1 (34.1-44.9) % MCV 97.7 H (79.4-94.8) fl MCH 30.4 (25.6-32.2) pg MCHC 31.1 L (32.2-35.5) g/dl RDW Std Deviation 47.7 H (36.4-46.3) fL Plt Count 122 L (182-369) K/mm3 MPV 10.5 (9.4-12.3) fl Neut % (Auto) 70.8 (34.0-71.1) % Lymph % (Auto) 14.0 L (19.3-51.7) % [place] % (Auto) 13.3 H (4.7-12.5) % Eos % (Auto) 1.0 (0.7-5.8) Baso % (Auto) 0.7 (0.1-1.2) % Neut # (Auto) 2.94 (1.56-6.13) K/mm3 Lymph # (Auto) 0.58 L (1.18-3.74) K/mm3 [place] # (Auto) 0.55 H (0.24-0.36) K/mm3 Eos # (Auto) 0.04 (0.04-0.36) K/mm3 Baso # (Auto) 0.03 (0.01-0.08) K/mm3 D-Dimer, Quantitative 0.87 H (0.19-0.50) mg/L Sodium 139 (136-145) mEq/L Potassium 3.3 L (3.5-5.1) mEq/L Chloride 96 L (98-107) mEq/L Carbon Dioxide 36 H (21-32) mEq/L Anion Gap 10.3 (5-15) BUN 40 H (7-18) mg/dL Creatinine 0.8 (0.55-1.02) mg/dL Est Cr Clr Drug Dosing 34.91 mL/min Estimated GFR (MDRD) > 60 (>60) mL/min BUN/Creatinine Ratio 50.0 H (14-18) Glucose 94 (83-115) mg/dL Calcium 9.8 (8.5-10.1) mg/dL Magnesium 2.0 (1.8-2.4) mg/dl Total Bilirubin 0.5 (0.2-1.0) mg/dL AST 24 (15-37) U/L ALT 17 (14-59) U/L Alkaline Phosphatase 80 (46-116) U/L Troponin I < 0.017 (0.00-0.056) ng/mL C-Reactive Protein 2.2 H* (<1.0) mg/dL NT-Pro-B Natriuret Pep (0-450) pg/mL Total Protein 7.9 (6.4-8.2) g/dl Albumin 3.7 (3.4-5.0) g/dl Globulin 4.2 gm/dL Albumin/Globulin Ratio 0.9 L (1-2) Urine Color (Yellow) Urine Appearance (Clear) Urine pH (5.0-8.0) Ur Specific [place] (1.005-1.030) Urine Protein (Negative) Urine Glucose (UA) (Negative) Urine Ketones (Negative) Urine Occult Blood (Negative) Urine Nitrite (Negative) Urine Bilirubin (Negative) Urine Urobilinogen (0.2-1.0) Ur Leukocyte Esterase (Negative) 10/19/20 10/19/20 Range/Units 14:12 15:30 WBC (3.98-10.04) K/mm3 RBC (3.98-5.22) M/mm3 Hgb (11.2-15.7) gm/dl Hct (34.1-44.9) % MCV (79.4-94.8) fl MCH (25.6-32.2) pg MCHC (32.2-35.5) g/dl RDW Std Deviation (36.4-46.3) fL Plt Count (182-369) K/mm3 MPV (9.4-12.3) fl Neut % (Auto) (34.0-71.1) % Lymph % (Auto) (19.3-51.7) % [place] % (Auto) (4.7-12.5) % Eos % (Auto) (0.7-5.8) Baso % (Auto) (0.1-1.2) % Neut # (Auto) (1.56-6.13) K/mm3 Lymph # (Auto) (1.18-3.74) K/mm3 [place] # (Auto) (0.24-0.36) K/mm3 Eos # (Auto) (0.04-0.36) K/mm3 Baso # (Auto) (0.01-0.08) K/mm3 D-Dimer, Quantitative (0.19-0.50) mg/L Sodium (136-145) mEq/L Potassium (3.5-5.1) mEq/L Chloride (98-107) mEq/L Carbon Dioxide (21-32) mEq/L Anion Gap (5-15) BUN (7-18) mg/dL Creatinine (0.55-1.02) mg/dL Est Cr Clr Drug Dosing mL/min Estimated GFR (MDRD) (>60) mL/min BUN/Creatinine Ratio (14-18) Glucose (83-115) mg/dL Calcium (8.5-10.1) mg/dL Magnesium (1.8-2.4) mg/dl Total Bilirubin (0.2-1.0) mg/dL AST (15-37) U/L ALT (14-59) U/L Alkaline Phosphatase (46-116) U/L Troponin I (0.00-0.056) ng/mL C-Reactive Protein (<1.0) mg/dL NT-Pro-B Natriuret Pep 6099 H (0-450) pg/mL Total Protein (6.4-8.2) g/dl Albumin (3.4-5.0) g/dl Globulin gm/dL Albumin/Globulin Ratio (1-2) Urine Color Yellow (Yellow) Urine Appearance Clear (Clear) Urine pH 7.0 (5.0-8.0) Ur Specific [place] 1.020 (1.005-1.030) Urine Protein Negative (Negative) Urine Glucose (UA) Negative (Negative) Urine Ketones Negative (Negative) Urine Occult Blood Negative (Negative) Urine Nitrite Negative (Negative) Urine Bilirubin Negative (Negative) Urine Urobilinogen 0.2 (0.2-1.0) Ur Leukocyte Esterase Negative (Negative) - Radiology Interpretation Free Text/Narrative:: Radiologist impression portable view of the chest compared to prior chest xray of 06/20/2021 heart is enlarged. Tortuous thoracic aorta is noted. Right-sided pleural effusion is seen which is similar to prior exam. Areas of increased density are seen within the right perihilar regions which are stable. Lung markings are slightly increased on the left side which are also stable. - Re-Assessments/Exams Free Text/Narrative Re-Assessment/Exam: 10/19/20 15:52 Hematology reveals a WBC of 4.15, hemoglobin 10.6, hematocrit 34.1, platelet count 122, coagulation reveals D-dimer of 0.87, chemistry reveals a sodium 139, potassium 3.3, chloride 96, carbon dioxide 36, anion gap 10.3, BUN 40, creatinine 0.8, glucose 94, calcium 9.8, magnesium 2.0, troponin less than 0.017, C-reactive protein 2.2, proBNP 6099 While the BNP is elevated, this looks like where she sits in her baseline for proBNP with her significant history of heart failure. She also does have a history of pancytopenia which would explain the low platelet count. 10/19/20 16:12 Urinalysis is unremarkable. The patient's D-dimer is elevated however it is elevated appropriate for age. I did discuss the case with Dr. Pathak and he agreed with that as well. I had a lengthy discussion with the patient her daughter and her regarding the possibility of doing a CT angiogram. The patient has not been tachycardic or tachypneic. Her O2 saturations have remained at 93% which is consistent with her chest x-ray report. He has not had any further chest pain and she has not been short of breath. At this time, the patient and her family elected not to do a CT angiogram and request to be discharged home. They have been directed however to return to the emergency department should she develop any further chest pain or shortness of breath. I also recommend that she follow-up with her primary care physician, Dr. Hobson, in a week to 10 days. Departure - Departure Time of Disposition: 16:15 Disposition: Home, Self-Care 01 Condition: Good Clinical Impression: Chest pain, atypical Instructions: Nonspecific Chest Pain, Adult, [id number] Referrals: Caroline Hobson MD [Physician] - Forms: ED Department Discharge Additional Instructions: You were seen in the emergency department today with complaints of chest pain. Labs, EKG, and a chest x-ray were all completed. As discussed, the chest x-ray is stable from previous chest x-ray on 06/20/2020. Your D dimer was slightly elevated above the maximum range however it is at an age appropriate level. Your proBNP level is elevated however it looks like it is chronically elevated and it is less than the levels at which you were discharged home from the hospital most recently. We did discuss the possibility of doing a CT angiogram to rule out a blood clot in your lungs, and you elected not to do this today. Should you develop any shortness of breath or chest pain, please return to the emergency department for follow-up evaluation. Also strongly recommend that you follow-up with your primary care physician in 1 week to 10 days. Should your condition worsen or change, do not hesitate returning to the emergency department. Sepsis Event Note (ED) - Evaluation Sepsis Screening Result: No Definite Risk - Focused Exam Vital Signs: Vital Signs Temp Pulse Resp BP 10/19/20 13:45 97.8 F 82 20 139/90 - My Orders Last 24 Hours: My Active Orders 10/19/20 13:50 EKG Documentation Completion [RC] ASDIRECTED EKG 12 Lead [EK] Stat - Assessment/Plan Last 24 Hours: My Active Orders 10/19/20 13:50 EKG Documentation Completion [RC] ASDIRECTED EKG 12 Lead [EK] Stat
--- NOTE | 2020-10-19 14:58 | CR ---
Chest: Portable view of the chest was obtained. Comparison: Prior chest x-ray of 06/20/20. Heart is enlarged. Tortuous thoracic aorta is noted. Right-sided pleural effusion is seen which is similar to prior exam. Areas of increased density are seen within the right perihilar regions which are stable. Lung markings are slightly increased on the left side which are also stable. Impression: 1. Chest x-ray appears similar to prior study of 06/20/20. 2. Nothing acute is seen from prior chest x-ray. Diagnostic code #3
== END 2020-10-19 16:32 | disposition home or self-care (01) ==
LOC: JD.ED 13:39
DX: R07.89 Other chest pain (principal); I48.91 Unspecified atrial fibrillation; E78.00 Pure hypercholesterolemia, unspecified; I10 Essential (primary) hypertension; Z88.8 Allergy status to other drugs, medicaments and biological substances; Z88.5 Allergy status to narcotic agent; Z79.899 Other long term (current) drug therapy
CPT/HCPCS: 36415; 71045; 71045-26; 80053; 81003; 83735; 83880; 84484; 85025; 85379; 86140; 93005; 93010; 99284; 99285-25